=== PATIENT | female | born 1935 | race Caucasian/White ===

== ENCOUNTER 2022-02-23 09:40 | Emergency (ER) | payer MEDICARE, BC, SELFPAY ==
[2022-02-23 10:14] VITALS: BP 144/88; PULSE 87; RESP 16; TEMP 37; O2SAT 99; BMI 25.8
--- NOTE | 2022-02-23 10:41 | CRLHL7_ITS ---
For Patients: As a result of the Century Cures Act, medical imaging exams and procedure reports are released immediately into your electronic medical record. You may view this report before your referring provider. If you have questions, please contact your health care provider. INDICATION: Trauma. On Eliquis COMPARISON: July 07, 2018 TECHNIQUE: CT examination of the head was performed as axial sections without intravenous contrast. Images were obtained from the vertex of the skull through the skull base. Please note that all CT scans at this facility use dose modulation, iterative reconstruction, and/or weight-based dosing when appropriate to reduce radiation dose to as low as reasonably achievable. FINDINGS: The brain shows no sign of mass lesion, mass effect, hemorrhage, or edema. There are involutional changes. There is mild cortical atrophy and there is mild white matter disease. There is no hydrocephalus. The visualized portions of the orbits are normal in appearance. The osseous structures are normal in appearance with no sign of abnormality in the skull base or calvarium. IMPRESSION: Age-appropriate involutional changes. No acute intracranial posttraumatic findings. Please note that all CT scans at this facility use dose modulation, iterative reconstruction, and/or weight-based dosing when appropriate to reduce radiation dose to as low as reasonably achievable. Dictated by Fabian Diana MD @ 02/23/2022 12:09:28 PM (Electronically Signed)
--- NOTE | 2022-02-23 10:41 | CRLHL7_ITS ---
For Patients: As a result of the Cures Act, medical imaging exams and procedure reports are released immediately into your electronic medical record. You may view this report before your referring provider. If you have questions, please contact your health care provider. INDICATION: Fall, right-sided rib pain. TECHNIQUE: Chest and ribs, 3 views. COMPARISON: None. FINDINGS: Lungs: Clear lungs. No consolidation. Pleura: No pleural effusion or pneumothorax. Heart and Mediastinum: The cardiomediastinal silhouette is normal. The vessels are unremarkable. Bones: Unremarkable. No displaced rib fractures. IMPRESSION: No acute cardiopulmonary disease. Dictated by Junaid Corona MD @ 02/23/2022 12:18:48 PM (Electronically Signed)
--- NOTE | 2022-02-23 12:50 | ED_ITS ---
HPI - Head Injury General Date Seen: 02/23/22 Chief complaint: Head Injury/Pain Stated complaint: Fell, hit back of head, twisted right shoulder Time Seen by Provider: 02/23/22 10:35 Source: patient Mode of arrival: ambulatory Limitations: no limitations History of Present Illness HPI Narrative: Patient is a very nice 86-year-old female who presents here ambulatory to the emergency room for evaluation of a head injury, she is on Eliquis, and stepped [place] a curb [place] and wiped out hitting of her septal region on her head, on the curb along with her right-sided chest and shoulder. No loss of consciousness, she reports no other injury, other than described above, there was no retrograde or antegrade amnesia, but she is concerned as she is on the Eliquis. MD Complaint: head injury Onset (ago): minute(s) Mechanism of Injury: fall Place: outdoors Loss of Consciousness: no Location of injury: occipital Severity: moderate Quality: aching Radiation: none Other Injuries: chest Context: other anticoagulant use Associated symptoms: denies other symptoms Related Data Home Medications Medication Instructions Recorded Confirmed apixaban 5 mg tablet (Eliquis) 5 mg PO BID 02/23/22 02/23/22 atorvastatin 40 mg tablet 40 mg PO DAILY 02/23/22 02/23/22 calcium carbonate 600 mg calcium 600 mg PO BID 02/23/22 02/23/22 (1,500 mg) tablet (Calcium) cholecalciferol (vitamin D3) 125 5,000 unit PO DAILY 02/23/22 02/23/22 mcg (5,000 unit) capsule hydrochlorothiazide 12.5 mg tablet 12.5 mg PO DAILY 02/23/22 02/23/22 metoprolol tartrate 50 mg tablet 50 mg PO DAILY 02/23/22 02/23/22 Allergies Allergy/AdvReac Type Severity Reaction Status Date / Time penicillin G Allergy Unknown Verified 02/23/22 10:22 Sulfa (Sulfonamide Allergy Unknown Verified 02/23/22 10:22 Antibiotics) Review of Systems Status of ROS: Reports: 10 or more systems reviewed and unremarkable except as noted in History and below PFSH PFSH Social History Smoking Status: Never smoker Do you use any of these nicotine containing products: None Second hand tobacco smoke exposure: No How often do you have a drink containing alcohol: monthly or less How often do you have six or more drinks on one occasion: Never AUDIT-C Alcohol total score: 1 Non-prescribed substance use: denies use service: No Exam Narrative: Exam Narrative: Patient is seen and assessed her vital signs are normal, pupils equal round reactive to light her TMs are normal, her neck is supple full range of motion with no tenderness palpation over C-spine, cranial nerves 3-12 are normal, she does have a bruise with a very small hematoma noted on her left side of her s eptal region. It is approximately 4 cm in circumference. Chest is clear no signs or spy johnathan distress, some very mild tenderness along the right side, but no bruising is noted., heart sounds are normal no clicks murmurs or gallops abdomen is soft, there is no tenderness palpation, no organomegaly, and no CVA tenderness. Const: Vital Signs, click to edit/add: Vital Signs - 24 hr 02/23/22 10:14 Temperature 98.6 F Pulse Rate [Pulse Oximeter] 87 Respiratory Rate 16 Blood Pressure [Ri t Upper Arm] 144/88 H Pulse Oximetry 99 Oxygen Delivery Me thod Room Air Course Vital Signs Vital signs: Initial Vital Signs Temperature 98.6 F 02/23/22 10:14 Temperature Source Temporal Artery Scan 02/23/22 10:14 Pulse Rate 87 02/23/22 10:14 Pulse Rhythm 02/23/22 10:14 Pulse Strength 3+ Normal 02/23/22 10:14 Respiratory Rate 16 02/23/22 10:14 Blood Pressure 144/88 H 02/23/22 10:14 Blood Pressure Mean 106 02/23/22 10:14 Blood Pressure Position Sitting 02/23/22 10:14 Pulse Oximetry 99 02/23/22 10:14 Oxygen Delivery Method 02/23/22 10:14 Vital Signs Temperature 98.6 F 02/23/22 10:14 Pulse Rate 87 02/23/22 10:14 Respiratory Rate 16 02/23/22 10:14 Blood Pressure 144/88 H 02/23/22 10:14 Pulse Oximetry 99 02/23/22 10:14 Oxygen Delivery Method 02/23/22 10:14 Temperature 98.6 F 02/23/22 10:14 Pulse Rate 87 02/23/22 10:14 Respiratory Rate 16 02/23/22 10:14 Blood Pressure 144/88 H 02/23/22 10:14 Pulse Oximetry 99 02/23/22 10:14 Oxygen Delivery Method 02/23/22 10:14 MDM - Head Injury MDM Narrative Medical decision making narrative: Life-threatening differential diagnosis is considered include: Subarachnoid hemorrhage, subdural hemorrhage, epidural hemorrhage. Other differential diagnosis considered include concussion, closed head injury, or neck fracture. Medical Records Attestation: I reviewed the patient's medical records. Lab Data Attestation: I reviewed the patient's lab results. Imaging Data CT scan - head: Attestation: I have reviewed the pertinent imaging results. My impression: CT scan of the head showed no acute findings. By my review Radiologist's impression: Read by Radiology in agreement no acute findings Discharge Plan Discharge Clinical Impression: Rib pain on right side, Closed head injury Patient Disposition: Home, Self-Care Condition: Stable Instructions: Chest Pain (ED), Head Injury (ED) Additional Instructions: Home rest Tylenol, I am so sorry fell, please try to be more careful in the future. Prescriptions: No Action atorvastatin 40 mg tablet 40 mg PO DAILY calcium carbonate [Calcium 600] 600 mg calcium (1,500 mg) tablet 600 mg PO BID Eliquis 5 mg tablet 5 mg PO BID metoprolol tartrate 50 mg tablet 50 mg PO DAILY cholecalciferol (vitamin D3) 125 mcg (5,000 unit) capsule 5,000 unit PO DAILY hydrochlorothiazide 12.5 mg tablet 12.5 mg PO DAILY Follow Up/Referrals: Karson Avitia MD [Primary Care Provider] - Stand Alone Forms: [employer] Info Instructions
== END 2022-02-23 12:38 | disposition home or self-care (01) ==
PROVIDERS: Emergency Provider Family Medicine; PCP Family Medicine
DX: S09.90XA Unspecified injury of head, initial encounter (principal); W10.1XXA Fall (on)(from) sidewalk curb, initial encounter; Y92.414 Local residential or business street as the place of occurrence of the external cause; Y99.9 Unspecified external cause status; R07.81 Pleurodynia; Z79.01 Long term (current) use of anticoagulants
CPT/HCPCS: 70450; 71101; 99283; 99284

== ENCOUNTER 2023-02-24 18:36 | Emergency (ER) | payer MEDICARE, BC, SELFPAY ==
[2023-02-24 18:48] VITALS: BP 179/69; PULSE 86; RESP 16; TEMP 36.2; O2SAT 99; BMI 27.5
--- NOTE | 2023-02-24 18:49 | ED_ITS ---
HPI - Head Injury General Time Seen by Provider: 18:49 Date Seen: 02/24/23 Chief complaint: Head Injury/Pain Stated complaint: Fell, hit head, on thinners Time Seen by Provider: 02/24/23 18:48 Source: patient and RN notes reviewed Mode of arrival: ambulatory Limitations: no limitations History of Present Illness HPI Narrative: Antoinette is a very pleasant 87-year-old female currently on Eliquis who comes to the emergency room for evaluation of a fall. Patient was at a local movie theater with family members and when she walked out she fell on the curb falling backwards striking her head. She also thinks that she must have fallen on her buttocks as she has some soreness in her low back. She did not lose consciousness nor has she had any nausea or vomiting. She denies any visual changes or chest pain. He had no prodromal symptoms prior to the fall. At this time she has not taken any medication for discomfort. She states that she came in because she was told because she is on a blood thinner that she would need further evaluation after a fall. Related Data Home Medications Medication Instructions Recorded Confirmed apixaban 5 mg tablet (Eliquis) 5 mg PO BID 02/23/22 02/23/22 atorvastatin 40 mg tablet 40 mg PO DAILY 02/23/22 02/23/22 calcium carbonate 600 mg calcium 600 mg PO BID 02/23/22 02/23/22 (1,500 mg) tablet (Calcium) cholecalciferol (vitamin D3) 125 5,000 unit PO DAILY 02/23/22 02/23/22 mcg (5,000 unit) capsule hydrochlorothiazide 12.5 mg tablet 12.5 mg PO DAILY 02/23/22 02/23/22 metoprolol tartrate 50 mg tablet 50 mg PO DAILY 02/23/22 02/23/22 Allergies Allergy/AdvReac Type Severity Reaction Status Date / Time penicillin G Allergy Unknown Verified 02/24/23 18:51 Sulfa (Sulfonamide Allergy Unknown Verified 02/24/23 18:51 Antibiotics) Review of Systems 2 Status of ROS: Reports: 6 or more systems reviewed and unremarkable except as noted in History and below Const: Denies: fever or chills Eyes: Denies: change in vision or blurry vision ENMT: Denies: neck pain or throat swelling Cardio: Denies: chest pain or shortness of breath with exertion Resp: Denies: shortness of breath GI: Denies: abdominal pain, nausea or vomiting Musculo: Reports: back pain (Low back discomfort on the right); Denies: neck pain or extremity swelling Neuro: Denies: headache or numbness in extremities Sonido/Lymph: Reports: other (Left elbow abrasion); Denies: easy bruising Allergy/Immuno: Denies: throat swelling PFSH [facility] Social History Smoking Status: Never smoker Do you use any of these nicotine containing products: None Second hand tobacco smoke exposure: No How often do you have a drink containing alcohol: monthly or less How often do you have six or more drinks on one occasion: Never AUDIT-C Alcohol total score: 1 Non-prescribed substance use: denies use service: No Exam Narrative: Exam Narrative: Patient is alert and oriented. Very well-spoken pleasant woman in no acute distress. Pupils are equal round and reactive. Patient has a silver dollar size sized area of edema on the left a septal and parietal area of the scalp. Skin is intact. Range of motion of neck is full and there is no cervical midline tenderness Heart with in a irregular rhythm and normal rate. Lungs are clear in all lung santos. Palpation down the lumbar and thoracic spine without pain. Mild tenderness noted over the right upper buttock. Ambulating without difficulty. She does have superficial abrasion over the left olecranon. Flexion extension is intact. There is no radial head tenderness with palpation. Const: Vital Signs, click to edit/add: Vital Signs - 24 hr 02/24/23 18:48 02/24/23 21:08 02/24/23 21:14 Temperature 97.1 F L 98.2 F 98.2 F Pulse Rate [Right Pulse Oximeter] 86 79 79 Respiratory Rate 16 16 16 Blood Pressure [Ri ght Upper Arm] 179/69 H 148/74 H 148/74 H Pulse Oximetry 99 99 Oxygen Delivery Me thod Room Air Room Air Documenting provider has reviewed patient's vital signs: yes Course Course ED Course: Given patient's age and use of blood thinners would recommend head CT to rule out any intracranial bleed. Cervical spine is without tenderness and range of motion is full and thus I do not think we need to add cervical spine imaging. Other injuries on a buttock and her left arm do not appear to compromise range of motion and appeared to be mild and therefore will not pursue imaging at this time. Patient does not describe any prodromal symptoms and thus will not pursue blood work. Vital Signs Vital signs: Initial Vital Signs Temperature 97.1 F L 02/24/23 18:48 Temperature Source Temporal Artery Scan 02/24/23 18:48 Pulse Rate 86 02/24/23 18:48 Pulse Rhythm Regular 02/24/23 18:48 Pulse Strength 3+ Normal 02/24/23 18:48 Respiratory Rate 16 02/24/23 18:48 Blood Pressure 179/69 H 02/24/23 18:48 Blood Pressure Mean 105 02/24/23 18:48 Blood Pressure Position Supine 02/24/23 18:48 Pulse Oximetry 99 02/24/23 18:48 Oxygen Delivery Method Room Air 02/24/23 18:48 Vital Signs Temperature 97.1 F L 02/24/23 18:48 Pulse Rate 86 02/24/23 18:48 Respiratory Rate 16 02/24/23 18:48 Blood Pressure 179/69 H 02/24/23 18:48 Pulse Oximetry 99 02/24/23 18:48 Oxygen Delivery Method Room Air 02/24/23 18:48 Temperature 98.2 F 02/24/23 21:14 Pulse Rate 79 02/24/23 21:14 Respiratory Rate 16 02/24/23 21:14 Blood Pressure 148/74 H 02/24/23 21:14 Pulse Oximetry 99 02/24/23 21:08 Oxygen Delivery Method Room Air 02/24/23 21:08 MDM - Head Injury MDM Narrative Medical decision making narrative: 1. Closed head injury-given patient's use of Eliquis along with her age we did obtain CT of the head which fortunately was negative for any evidence of fracture or intracranial bleed. At this time patient will be discharged home. She is instructed to return for vomiting, headache, visual changes, change in personality and as needed. 2. Soft tissue injury-of the low back and of the left elbow. No x-rays were deemed necessary in these particular areas. Seek medical attention for any ongoing problems. 3. Disposition-home at this time. Return as needed. Medical Records Attestation: I reviewed the patient's medical records. Imaging Data CT scan - head: Attestation: I have reviewed the pertinent imaging results. My impression: I do not note any acute skull fractures or intracranial bleeding. Radiologist's impression: No loss of cruz-white differentiation suggestive of recent territorial infarct. Small focus of encephalomalacia involving the right precentral gyrus. Mild patchy periventricular hypoattenuation, nonspecific but suggestive of chronic microvascular ischemic changes. No intracranial hemorrhage, abnormal extra-axial fluid collection or midline shift. The ventricles and cerebral sulci are normal in caliber. The basal cisterns are patent. The visualized paranasal sinuses and mastoid air cells are clear. Status post bilateral lens removal. The visualized orbits and calvarium are unremarkable. 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 The cerebellar tonsils are in normal position. IMPRESSION: No intracranial hemorrhage or midline shift. No acute skull fractures. Discharge Plan Discharge Clinical Impression: Closed head injury Qualifiers: Encounter type: initial encounter Qualified Code(s): S09.90XA - Unspecified injury of head, initial encounter Soft tissue injury of back Qualifiers: Encounter type: initial encounter Qualified Code(s): S39.92XA - Unspecified injury of lower back, initial encounter Patient Disposition: Home, Self-Care Condition: Unchanged Additional Instructions: Fortunately, CT does not show any evidence of bleeding. Please seek medical attention or return for symptoms including vomiting, severe headache, visual changes, problems with balance and as needed. Tylenol may be used as needed. Prescriptions: No Action atorvastatin 40 mg tablet 40 mg PO DAILY calcium carbonate [Calcium 600] 600 mg calcium (1,500 mg) tablet 600 mg PO BID Eliquis 5 mg tablet 5 mg PO BID metoprolol tartrate 50 mg tablet 50 mg PO DAILY cholecalciferol (vitamin D3) 125 mcg (5,000 unit) capsule 5,000 unit PO DAILY hydrochlorothiazide 12.5 mg tablet 12.5 mg PO DAILY Follow Up/Referrals: Karson Avitia MD [Primary Care Provider] - Stand Alone Forms: [email or web address] Info Instructions
--- NOTE | 2023-02-24 19:05 | CRLHL7_ITS ---
For Patients: As a result of the Century Cures Act, medical imaging exams and procedure reports are released immediately into your electronic medical record. You may view this report before your referring provider. If you have questions, please contact your health care provider. INDICATION: . TECHNIQUE: Multiplanar CT examination of the head was performed without the use of intravenous contrast. COMPARISON: None. FINDINGS: No loss of cruz-white differentiation suggestive of recent territorial infarct. Small focus of encephalomalacia involving the right precentral gyrus. Mild patchy periventricular hypoattenuation, nonspecific but suggestive of chronic microvascular ischemic changes. No intracranial hemorrhage, abnormal extra-axial fluid collection or midline shift. The ventricles and cerebral sulci are normal in caliber. The basal cisterns are patent. The visualized paranasal sinuses and mastoid air cells are clear. Status post bilateral lens removal. The visualized orbits and calvarium are unremarkable. 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 The cerebellar tonsils are in normal position. IMPRESSION: No intracranial hemorrhage or midline shift. No acute skull fractures. Please note that all CT scans at this facility use dose modulation, iterative reconstruction, and/or weight-based dosing when appropriate to reduce radiation dose to as low as reasonably achievable. Dictated by Fabian Johnston MD @ 02/24/2023 8:58:29 PM (Electronically Signed)
[2023-02-24 21:08] VITALS: BP 148/74; PULSE 79; RESP 16; TEMP 36.8; O2SAT 99
[2023-02-24 21:14] VITALS: BP 148/74; PULSE 79; RESP 16; TEMP 36.8
== END 2023-02-24 21:15 | disposition home or self-care (01) ==
PROVIDERS: Emergency Provider Family Medicine; PCP Family Medicine
DX: S09.90XA Unspecified injury of head, initial encounter (principal); S39.92XA Unspecified injury of lower back, initial encounter; W10.1XXA Fall (on)(from) sidewalk curb, initial encounter; Y92.26 Movie house or cinema as the place of occurrence of the external cause
CPT/HCPCS: 70450; 99284

== ENCOUNTER 2023-03-30 16:44 | Emergency (ER) | payer MEDICARE, BC, SELFPAY ==
[2023-03-30 17:00] VITALS: BP 137/78; PULSE 69; RESP 16; TEMP 36.6; O2SAT 98; BMI 27.5
--- NOTE | 2023-03-30 17:09 | CRLHL7_ITS ---
For Patients: As a result of the Century Cures Act, medical imaging exams and procedure reports are released immediately into your electronic medical record. You may view this report before your referring provider. If you have questions, please contact your health care provider. INDICATION: Trauma. TECHNIQUE: Head CT without contrast. COMPARISON: February 2023. FINDINGS: Periventricular areas of low attenuation, likely due to chronic small vessel ischemic changes. Generalized volume loss. Atherosclerosis. Right precentral gyrus area of encephalomalacia. Motion and beam hardening artifact predominantly at the level of skullbase degrades fine detail evaluation. No intracranial hemorrhage. No discrete mass or mass effect. There is no midline shift. The basilar cisterns are patent. No hydrocephalus. The lagos-white matter interface is otherwise preserved. No acute osseous abnormality. No extracalvarial soft tissue abnormality. The mastoid air cells are clear. The paranasal sinuses are well-aerated. The visualized portions of the orbits and globes are unremarkable. IMPRESSION: No acute intracranial process per unenhanced head CT given above constraints. Please note that all CT scans at this facility use dose modulation, iterative reconstruction, and/or weight-based dosing when appropriate to reduce radiation dose to as low as reasonably achievable. Dictated by Pete Buckley MD @ 03/30/2023 5:57:21 PM (Electronically Signed)
--- NOTE | 2023-03-30 17:11 | ED_ITS ---
HPI - Fall General Date Seen: 03/30/23 Chief Complaint: Fall/Minor Trauma Stated Complaint: Fell and hit head on grass, on blood thinners Time Seen by Provider: 03/30/23 16:46 Source: patient Mode of arrival: ambulatory Limitations: no limitations History of Present Illness HPI Narrative: Patient is a 7-year-old female presented emergency department after a fall. She states she is on Eliquis. She is here with a family friend. She has issues bending over to pick or dog feces when she stood for this of fallen forward was witnessed and back up quickly and fell backwards. States there was no lightheadedness or dizziness. States she hit the back her head on grass. He has been otherwise acting normally according to the family friend. Patient denies chest pain, shortness of breath, lightheadedness, dizziness, fevers, chills, weakness, numbness, vision changes. Denies any neck pain. No other concerns at this time. States she only came in because she is on a blood thinner. Related Data Home Medications Medication Instructions Recorded Confirmed apixaban 5 mg tablet (Eliquis) 5 mg PO BID 02/23/22 02/23/22 atorvastatin 40 mg tablet 40 mg PO DAILY 02/23/22 02/23/22 calcium carbonate 600 mg calcium 600 mg PO BID 02/23/22 02/23/22 (1,500 mg) tablet (Calcium) cholecalciferol (vitamin D3) 125 5,000 unit PO DAILY 02/23/22 02/23/22 mcg (5,000 unit) capsule hydrochlorothiazide 12.5 mg tablet 12.5 mg PO DAILY 02/23/22 02/23/22 metoprolol tartrate 50 mg tablet 50 mg PO DAILY 02/23/22 02/23/22 Allergies Allergy/AdvReac Type Severity Reaction Status Date / Time penicillin G Allergy Unknown Verified 02/24/23 18:51 Sulfa (Sulfonamide Allergy Unknown Verified 02/24/23 18:51 Antibiotics) Review of Systems Status of ROS: Reports: 10 or more systems reviewed and unremarkable except as noted in History and below [facility] Social History Smoking Status: Never smoker Do you use any of these nicotine containing products: None Second hand tobacco smoke exposure: No How often do you have a drink containing alcohol: monthly or less How often do you have six or more drinks on one occasion: Never AUDIT-C Alcohol total score: 1 Non-prescribed substance use: denies use service: No Exam Narrative: Exam Narrative: Const: Well-nourished, Well-developed, in no distress Eyes: PERRL, no conjunctival injection, and symmetrical lids HENT: Atraumatic external nose and ears. Moist mucous membranes. Atraumatic normocephalic Neck: Symmetric, trachea midline, No thyromegaly. CVS: RRR, No murmurs or gallops. Peripheral pulses 2+ and equal in all extremities RESP: Unlabored respiratory effort. Clear to auscultation bilaterally. GI: Nontender/Nondistended, No rebound or guarding. MSK:Extremities w/o deformity, Normal Active ROM Skin: Warm, Dry. No rashes or lesions. Neuro: Normal Muscle tone, No focal neurological deficits. Psych: Awake, Alert, & Oriented x3. Appropriate mood and affect. Const: Vital Signs, click to edit/add: Vital Signs - 24 hr 03/30/23 17:00 Temperature 97.9 F Pulse Rate [Right Pulse Oximeter] 69 Respiratory Rate 16 Blood Pressure [Ri ght Upper Arm] 137/78 Pulse Oximetry 98 Oxygen Delivery Me thod Room Air Course Vital Signs Vital signs: Initial Vital Signs Temperature 97.9 F 03/30/23 17:00 Temperature Source Temporal Artery Scan 03/30/23 17:00 Pulse Rate 69 03/30/23 17:00 Respiratory Rate 16 03/30/23 17:00 Blood Pressure 137/78 03/30/23 17:00 Blood Pressure Mean 97 03/30/23 17:00 Blood Pressure Position Sitting 03/30/23 17:00 Pulse Oximetry 98 03/30/23 17:00 Oxygen Delivery Method Room Air 03/30/23 17:00 Vital Signs Temperature 97.9 F 03/30/23 17:00 Pulse Rate 69 03/30/23 17:00 Respiratory Rate 16 03/30/23 17:00 Blood Pressure 137/78 03/30/23 17:00 Pulse Oximetry 98 03/30/23 17:00 Oxygen Delivery Method Room Air 03/30/23 17:00 Temperature 97.9 F 03/30/23 17:00 Pulse Rate 69 03/30/23 17:00 Respiratory Rate 16 03/30/23 17:00 Blood Pressure 137/78 03/30/23 17:00 Pulse Oximetry 98 03/30/23 17:00 Oxygen Delivery Method Room Air 03/30/23 17:00 MDM - Fall MDM Narrative Medical decision making narrative: Patient is an 87-year-old female presenting emergency department after a fall. She is on blood thinners. Shows no lightheadedness dizziness associated with the fall. She does was all due to her losing her balance. She says she has weak legs at baseline. She is otherwise acting normally. No other concerns at this time. She does not have any neck pain under not believe imaging of the cervical spine is necessary at this time. I ordered CT scan of the head to look for any intracranial bleeding. Returned showing no concerning abnormalities. She continues to be asymptomatic be discharged home. She has agreed with this plan. Imaging Data CT scan - head: Radiologist's impression: INDICATION: Trauma. TECHNIQUE: Head CT without contrast. COMPARISON: February 2023. FINDINGS: Periventricular areas of low attenuation, likely due to chronic small vessel ischemic changes. Generalized volume loss. Atherosclerosis. Right precentral gyrus area of encephalomalacia. Motion and beam hardening artifact predominantly at the level of skullbase degrades fine detail evaluation. No intracranial hemorrhage. No discrete mass or mass effect. There is no midline shift. The basilar cisterns are patent. No hydrocephalus. The [place]-white matter interface is otherwise preserved. No acute osseous abnormality. No extracalvarial soft tissue abnormality. The mastoid air cells are clear. The paranasal sinuses are well-aerated. The visualized portions of the orbits and globes are unremarkable. IMPRESSION: No acute intracranial process per unenhanced head CT given above constraints. Please note that all CT scans at this facility use dose modulation, iterative reconstruction, and/or weight-based dosing when appropriate to reduce radiation dose to as low as reasonably achievable. Dictated by Pete Buckley MD @ 03/30/2023 5:57:21 PM Discharge Plan Discharge Clinical Impression: Closed head injury Qualifiers: Encounter type: initial encounter Qualified Code(s): S09.90XA - Unspecified injury of head, initial encounter Patient Disposition: Home, Self-Care Condition: Stable Instructions: Head Injury (DC) Additional Instructions: There is no signs of bleeding on head CT. Return for any new or worsening symptoms Prescriptions: No Action atorvastatin 40 mg tablet 40 mg PO DAILY calcium carbonate [Calcium 600] 600 mg calcium (1,500 mg) tablet 600 mg PO BID Eliquis 5 mg tablet 5 mg PO BID metoprolol tartrate 50 mg tablet 50 mg PO DAILY cholecalciferol (vitamin D3) 125 mcg (5,000 unit) capsule 5,000 unit PO DAILY hydrochlorothiazide 12.5 mg tablet 12.5 mg PO DAILY Follow Up/Referrals: Karson Avitia MD [Primary Care Provider] - Stand Alone Forms: [facility] Info Instructions
== END 2023-03-30 18:09 | disposition home or self-care (01) ==
PROVIDERS: Emergency Provider Student in an Organized Health Care Education/Training Program; PCP Family Medicine
DX: S09.90XA Unspecified injury of head, initial encounter (principal); W18.30XA Fall on same level, unspecified, initial encounter
CPT/HCPCS: 70450; 99283; 99284

== ENCOUNTER 2024-03-02 12:18 | Emergency (ER) | payer MEDICARE, BC, SELFPAY ==
[2024-03-02 12:45] VITALS: BP 145/74; PULSE 70; RESP 16; TEMP 36.8; O2SAT 98; BMI 23.2
--- NOTE | 2024-03-02 13:04 | CRLHL7_ITS ---
For Patients: As a result of the Century Cures Act, medical imaging exams and procedure reports are released immediately into your electronic medical record. You may view this report before your referring provider. If you have questions, please contact your health care provider. Indication: Fall, hit head Technique: Volumetric multidetector CT images of the head were obtained without the administration of low osmolar intravenous contrast. Comparison: CT head March 30, 2023 Findings: There is no intra-axial or extra-axial fluid collection. There is no mass effect or midline shift. There is age-related cortical atrophy with mild sulcal widening and ex vacuo dilatation of the lateral ventricles. Stable encephalomalacia of the mesial right frontal vertex. Otherwise, stable moderate chronic small-vessel disease changes within the subcortical and periventricular white matter. The orbits and their contents are grossly within normal limits. There is minimal superficial soft tissue prominence of the left temporal scalp. The underlying bony calvarium is grossly intact. There is minimal chronic mucosal thickening within the paranasal sinuses. The mastoid air cells are well aerated. Impression: Stable age-related and remote ischemic changes of the brain without acute intracranial abnormality. Small left temporal scalp hematoma. Please note that all CT scans at this facility use dose modulation, iterative reconstruction, and/or weight-based dosing when appropriate to reduce radiation dose to as low as reasonably achievable. Dictated by Crow Joyce MD @ 03/02/2024 1:40:37 PM (Electronically Signed)
--- NOTE | 2024-03-02 13:36 | ED_ITS ---
HPI - General Adult General Chief complaint: Fall/Minor Trauma Stated complaint: Fall at home bumped head Time Seen by Provider: 03/02/24 13:02 Source: patient Mode of arrival: ambulatory Limitations: no limitations History of Present Illness HPI narrative: 88-year-old female presenting today after a fall. Patient states that her right knee buckled when she was walking in her house and she fell on her buttocks, on the way down she hit the left side of her head on the door frame. Patient denies headache, confusion, blurry vision or changes in her hearing. She denies any neurologic deficits. She does state that the area where she hit is tender. Patient is anticoagulated. Related Data Home Medications ?Medication ?Instructions ?Recorded ?Confirmed apixaban 5 mg tablet (Eliquis) 5 mg PO BID 02/23/22 01/23/24 atorvastatin 40 mg tablet 40 mg PO DAILY 02/23/22 01/23/24 calcium carbonate (Calcium 600) 600 mg PO BID 02/23/22 01/23/24 cholecalciferol (vitamin D3) 125 5,000 unit PO DAILY 02/23/22 01/23/24 mcg (5,000 unit) capsule hydrochlorothiazide 12.5 mg tablet 12.5 mg PO DAILY 02/23/22 01/23/24 metoprolol tartrate 50 mg tablet 50 mg PO DAILY 02/23/22 01/23/24 Previous Rx's ?Medication ?Instructions ?Recorded cetirizine 10 mg tablet 10 mg PO QDAY #30 tabs 01/19/24 fluticasone propionate 50 1 spray intranasal QDAY #16 grams 01/19/24 mcg/actuation nasal spray,suspension guaifenesin 600 mg tablet, 600 - 1,200 mg (1 - 2 x 600 mg) PO 01/19/24 extended release 12 hr BID #30 tabs Allergies Allergy/AdvReac Type Severity Reaction Status Date / Time penicillin G Allergy Unknown Verified 01/23/24 10:52 Sulfa (Sulfonamide Allergy Unknown Verified 01/23/24 10:52 Antibiotics) Review of Systems Status of ROS: Reports: 10 or more systems reviewed and unremarkable except as noted in History and below PFSH PFSH Social History Smoking Status: Never smoker Do you use any of these nicotine containing products: None Second hand tobacco smoke exposure: No How often do you have a drink containing alcohol: monthly or less How often do you have six or more drinks on one occasion: Never AUDIT-C Alcohol total score: 1 Non-prescribed substance use: denies use service: No Exam Narrative: Exam Narrative: Well-nourished well-developed patient in no acute distress. Alert and oriented x3. Answers questions appropriately. Mood and affect are appropriate. Thoughts are goal oriented and rational. No tangential or magical thinking noted. Patient speaks in full sentences without needing to catch their breath. GCS is 15. Patient is speaking and breathing without difficulty. There is no obvious significant bleeding noted. Patient is sitting on the side of the bed comfortably. HEENT: Normocephalic. Pupils are equally round reactive to light. Extraocular muscles are intact. Conjunctivae are moist without any icterus noted. Moist mucous membranes. Posterior pharynx is normal. No trauma noted to the inside of the mouth. Neck is soft . Patient has a small hematoma over the left religion. Cardiovascular: Heart is regular rate and rhythm S1 and S2 are present without any murmurs. Lungs: Clear to auscultation bilaterally no wheezes rhonchi or rales are appreciated. Patient takes deep breaths without any discomfort. Patient has no tenderness to palpation of the anterior, lateral posterior chest wall. Abdomen: Soft and nontender nondistended with normal bowel sounds. Extremities: Bilateral lower extremities are without edema. Skin: Well perfused. Back: Normal appearance. Patient has no tenderness to palpation at the cervical, thoracic or lumbar spine. Patient has full range of motion at the neck with flexion, extension, side way bending and rotation without pain. Const: Vital Signs, click to edit/add: Vital Signs - 24 hr 03/02/24 12:45 Temperature 98.3 F Pulse Rate [Pulse Oximeter] 70 Respiratory Rate 16 Blood Pressure [Ri ght Upper Arm] 145/74 H Pulse Oximetry 98 Oxygen Delivery Me thod Room Air Course Course ED Course: CT scan of her head was done, unremarkable. Given that she was having no other symptoms no further imaging was done. Vital Signs Vital signs: Initial Vital Signs Temperature 98.3 F 03/02/24 12:45 Temperature Source Temporal Artery Scan 03/02/24 12:45 Pulse Rate 70 03/02/24 12:45 Respiratory Rate 16 03/02/24 12:45 Blood Pressure 145/74 H 03/02/24 12:45 Blood Pressure Mean 97 03/02/24 12:45 Pulse Oximetry 98 03/02/24 12:45 Oxygen Delivery Method Room Air 03/02/24 12:45 Vital Signs Temperature 98.3 F 03/02/24 12:45 Pulse Rate 70 03/02/24 12:45 Respiratory Rate 16 03/02/24 12:45 Blood Pressure 145/74 H 03/02/24 12:45 Pulse Oximetry 98 03/02/24 12:45 Oxygen Delivery Method Room Air 03/02/24 12:45 Temperature 98.3 F 03/02/24 12:45 Pulse Rate 70 03/02/24 12:45 Respiratory Rate 16 03/02/24 12:45 Blood Pressure 145/74 H 03/02/24 12:45 Pulse Oximetry 98 03/02/24 12:45 Oxygen Delivery Method Room Air 03/02/24 12:45 Medical Decision Making MDM Narrative Medical decision making narrative: 88-year-old female status post fall with a closed head injury. We discussed symptomatic treatment and reasons for follow-up. Imaging Data CT scan - head: Attestation: I have reviewed the pertinent imaging results. Radiologist's impression: Volumetric multidetector CT images of the head were obtained without the administration of low osmolar intravenous contrast. Comparison: CT head March 30, 2023 Findings: There is no intra-axial or extra-axial fluid collection. There is no mass effect or midline shift. There is age-related cortical atrophy with mild sulcal widening and ex vacuo dilatation of the lateral ventricles. Stable encephalomalacia of the mesial right frontal vertex. Otherwise, stable moderate chronic small-vessel disease changes within the subcortical and periventricular white matter. The orbits and their contents are grossly within normal limits. There is minimal superficial soft tissue prominence of the left temporal scalp. The underlying bony calvarium is grossly intact. There is minimal chronic mucosal thickening within the paranasal sinuses. The mastoid air cells are well aerated. Impression: Stable age-related and remote ischemic changes of the brain without acute intracranial abnormality. Small left temporal scalp hematoma. Discharge Plan Discharge Clinical Impression: Closed head injury, Fall Patient Disposition: Home, Self-Care Condition: Stable Additional Instructions: Your CT scan was normal today. Continue your therapy as you are doing. Return to the emergency department if you start vomiting, become confused or develop any neurologic deficits. Prescriptions: No Action guaifenesin 600 mg tablet extended release 12hr 600 - 1,200 mg PO BID Qty: 30 0RF cetirizine 10 mg tablet 10 mg PO QDAY Qty: 30 0RF fluticasone propionate 50 mcg/actuation spray,suspension 1 spray intranasal QDAY Qty: 16 0RF Rx Instructions: administer into each nostril atorvastatin 40 mg tablet 40 mg PO DAILY calcium carbonate [Calcium 600] 600 mg calcium (1,500 mg) tablet 600 mg PO BID Eliquis 5 mg tablet 5 mg PO BID metoprolol tartrate 50 mg tablet 50 mg PO DAILY cholecalciferol (vitamin D3) 125 mcg (5,000 unit) capsule 5,000 unit PO DAILY hydrochlorothiazide 12.5 mg tablet 12.5 mg PO DAILY Follow Up/Referrals: Karson Avitia MD [Primary Care Provider] - Stand Alone Forms: [facility] Info Instructions
== END 2024-03-02 13:55 | disposition home or self-care (01) ==
PROVIDERS: Emergency Provider Family Medicine; PCP Family Medicine
DX: S09.90XA Unspecified injury of head, initial encounter (principal); W01.198A Fall on same level from slipping, tripping and stumbling with subsequent striking against other object, initial encounter
CPT/HCPCS: 70450; 99284

== ENCOUNTER 2024-03-24 16:30 | Observation (INO) | payer MEDICARE, BC, SELFPAY ==
[2024-03-24] VITALS (10 sets, daily range): BP systolic 122–151; BP diastolic 51–82; PULSE 63–82; RESP 16–20; TEMP 36.7–37; O2SAT 95–100; BMI 23.0; BMI 22.7
--- NOTE | 2024-03-24 16:47 | ED_ITS ---
HPI - General Adult General Chief complaint: Neuro Symptoms/Altered Deficit Stated complaint: stroke Time Seen by Provider: 03/24/24 16:42 History of Present Illness HPI narrative: Patient is a 88-year-old woman who developed a strange sensation in the left biceps region while resting at home today. She states that she feels a tightness as if she has a pulled muscle. She is concerned she may be having a stroke but has no other neurologic symptoms. She is able to drive herself here. She has no chest pain no shortness a breath orthopnea no PND no weakness no difficulty with speech. No difficulty with vision no headache. Symptoms seem to worsen when she bends or arm but she has no bruising or ecchymoses noted. Symptoms are persisting but potentially getting better. Related Data Home Medications ?Medication ?Instructions ?Recorded ?Confirmed apixaban 5 mg tablet (Eliquis) 5 mg PO BID 02/23/22 03/24/24 atorvastatin 40 mg tablet 40 mg PO DAILY 02/23/22 03/24/24 calcium carbonate (Calcium 600) 600 mg PO BID 02/23/22 03/24/24 cholecalciferol (vitamin D3) 125 5,000 unit PO DAILY 02/23/22 03/24/24 mcg (5,000 unit) capsule hydrochlorothiazide 12.5 mg tablet 12.5 mg PO DAILY 02/23/22 03/24/24 metoprolol tartrate 50 mg tablet 50 mg PO DAILY 02/23/22 03/24/24 albuterol sulfate 90 mcg/actuation 2 puff inhalation Q4H PRN wheezing 03/24/24 03/24/24 aerosol inhaler Previous Rx's ?Medication ?Instructions ?Recorded cetirizine 10 mg tablet 10 mg PO QDAY #30 tabs 01/19/24 Allergies Allergy/AdvReac Type Severity Reaction Status Date / Time penicillin G Allergy Unknown Verified 03/24/24 17:58 Sulfa (Sulfonamide Allergy Unknown Verified 03/24/24 17:58 Antibiotics) Review of Systems Status of ROS: Reports: 10 or more systems reviewed and unremarkable except as noted in History and below [facility] Social History Smoking Status: Never smoker Do you use any of these nicotine containing products: None Second hand tobacco smoke exposure: No How often do you have a drink containing alcohol: monthly or less How often do you have six or more drinks on one occasion: Never AUDIT-C Alcohol total score: 1 Non-prescribed substance use: denies use service: No Exam Narrative: Exam Narrative: EXAM GENERAL: Patient appears comfortable and well. EYES: No scleral icterus. ENT: Tympanic membranes and oropharynx normal. THYROID: no thyroid nodules or thyromegaly. LYMPH: No supraclavicular or cervical lymphadenopathy. SKIN: Visible skin seen during exam normal or with benign process only. EXT: No dependent lower extremity pedal edema. HEART: Regular rate and rhythm with no murmurs, rubs, or gallops. LUNGS: Clear to auscultation bilaterally with no crackles or wheezes. ABD: Soft, non tender, non distended. PSYCH: Good eye contact, speech is not pressured. Patient oriented x3. No evidence of pronator drift. She has 5/5 strength in both extremities. Reflexes are intact. Muscle strength is intact as is sensation. Const: Vital Signs, click to edit/add: Vital Signs - 24 hr 03/24/24 16:34 03/24/24 17:40 03/24/24 17:59 Temperature 98.3 F Pulse Rate 82 Pulse Rate [Pulse Oximeter] 74 Respiratory Rate 16 20 Blood Pressure 141/66 H Blood Pressure [Ri ght Upper Arm] 151/76 H Pulse Oximetry 97 95 96 Oxygen Delivery Me thod Room Air 03/24/24 18:30 Temperature Pulse Rate Pulse Rate [Pulse Oximeter] 71 Respiratory Rate 20 Blood Pressure Blood Pressure [Ri ght Upper Arm] 145/63 H Pulse Oximetry 100 Oxygen Delivery Me thod Room Air Course Course ED Course: This point I find no neurological symptoms. I do not believe head CT is indicated. I did order EKG troponin CBC basic metabolic panel and will plan to reassess. Reevaluation(s) Reevaluation #1: Initial NIH stroke score was 0. There was some concern now the patient is unable to write her name with her left hand. At this point we will call a stroke code and proceed with emergent evaluation. Vital Signs Vital signs: Initial Vital Signs Temperature 98.3 F 03/24/24 16:34 Temperature Source Oral 03/24/24 16:34 Pulse Rate 74 03/24/24 16:34 Respiratory Rate 16 03/24/24 16:34 Blood Pressure 151/76 H 03/24/24 16:34 Blood Pressure Mean 101 03/24/24 16:34 Blood Pressure Position Sitting 03/24/24 16:34 Pulse Oximetry 97 03/24/24 16:34 Oxygen Delivery Method Room Air 03/24/24 16:34 Vital Signs Temperature 98.3 F 03/24/24 16:34 Pulse Rate 74 03/24/24 16:34 Respiratory Rate 16 03/24/24 16:34 Blood Pressure 151/76 H 03/24/24 16:34 Pulse Oximetry 97 03/24/24 16:34 Oxygen Delivery Method Room Air 03/24/24 16:34 Temperature 98.3 F 03/24/24 16:34 Pulse Rate 71 03/24/24 18:30 Respiratory Rate 20 03/24/24 18:30 Blood Pressure 145/63 H 03/24/24 18:30 Pulse Oximetry 100 03/24/24 18:30 Oxygen Delivery Method Room Air 03/24/24 18:30 Medical Decision Making MDM Narrative Medical decision making narrative: Patient is a 88-year-old woman who comes in today with feeling of disconnect with her left arm. Which came in she had a NIH score of 0. Family was very concerned and asked I talked to Neurology which I did and I did recommend CT CTA both of which are normal. Patient has a sinus rhythm. Patient is anticoagulated as she potentially had some paroxysmal atrial fib in the past which may have contributed to stroke-like symptoms. At this point workup is largely unremarkable and her NIH remains at 0. Neurology recommends admission for MRI which we have arranged. Lab Data Labs: Lab Results 03/24/24 Range/Units 17:02 WBC 6.89 (4.50-11.00) K/uL RBC 3.63 L (4.00-5.20) m/uL Hgb 11.0 L (12.0-16.0) gm/dL Hct 33.9 (33.0-51.0) % MCV 93 (80-100) fL MCH 30 (26-34) pg MCHC 32 (32-36) gm/dL RDW Coeff of Barb 13.8 (11.5-15.5) % Plt Count 245 (140-440) K/uL Neut % (Auto) 46.8 (42.0-72.0) % Lymph % (Auto) 38.5 (20-44) % [place] % (Auto) 10.9 (0.0-11.0) % Eos % (Auto) 3.0 (0.0-7.0) % Baso % (Auto) 0.4 (0.0-3.0) % Neut # (Auto) 3.22 (1.7-7.0) K/uL Lymph # (Auto) 2.65 (0.90-2.90) K/uL [place] # (Auto) 0.80 (0.00-0.90) K/UL Eos # (Auto) 0.21 (0.00-0.50) K/uL Baso # (Auto) 0.03 (0.00-0.30) K/uL Abs Immat Gran (auto) 0.03 (0.00-0.30) K/uL Imm/Tot Granulo (auto) 0.4 % INR 1.29 H (0.91-1.10) APTT 30 (23-33) Seconds Sodium 137 (135-149) mmol/L Potassium 3.3 L (3.6-5.1) mmol/L Chloride 99 (96-114) mmol/L Carbon Dioxide 30 (20-32) mmol/L Anion Gap 8 (7-15) mEq/L BUN 21 (7-30) mg/dL Creatinine 0.8 (0.5-1.5) mg/dL Estimated Creat Clear 32.79 Estimated GFR 71 ml/min Glucose 104 (60-115) mg/dL Calcium 9.7 (8.4-10.6) mg/dL Troponin I < 0.01 L (0.01-0.04) ng/mL Discharge Plan Discharge Clinical Impression: Weakness Patient Disposition: Admitted As Observation Condition: Stable Activity Level: Other Discharge Diet: Other Prescriptions: No Action cetirizine 10 mg tablet 10 mg PO QDAY Qty: 30 0RF albuterol sulfate 90 mcg/actuation HFA aerosol inhaler 2 puff inhalation Q4H PRN (Reason: wheezing) atorvastatin 40 mg tablet 40 mg PO DAILY calcium carbonate [Calcium 600] 600 mg calcium (1,500 mg) tablet 600 mg PO BID Eliquis 5 mg tablet 5 mg PO BID metoprolol tartrate 50 mg tablet 50 mg PO DAILY cholecalciferol (vitamin D3) 125 mcg (5,000 unit) capsule 5,000 unit PO DAILY hydrochlorothiazide 12.5 mg tablet 12.5 mg PO DAILY Follow Up/Referrals: Karson Avitia MD [Primary Care Provider] -
[2024-03-24 17:07] LABS: Basophils Absolute Auto 0.03 K/uL (0.00-0.30); Basophils Percent Auto 0.4 % (0.0-3.0); Eosinophils Absolute Auto 0.21 K/uL (0.00-0.50); Hematocrit 33.9 % (33.0-51.0); Immature Granulocytes Abs Auto 0.03 K/uL (0.00-0.30); Immature Granulocytes Pct Auto 0.4 %; Lymphocytes Absolute Auto 2.65 K/uL (0.90-2.90); Lymphocytes Percent Auto 38.5 % (20-44); Mean Corpuscular HGB Conc 32 gm/dL (32-36); Mean Corpuscular Hemoglobin 30 pg (26-34); Mean Corpuscular Volume 93 fL (80-100); Monocytes Percent Auto 10.9 % (0.0-11.0); Neutrophils Absolute Auto 3.22 K/uL (1.7-7.0); Neutrophils Percent Auto 46.8 % (42.0-72.0); Platelet Count* 245 K/uL (140-440); RDW Coefficient of Variation % 13.8 % (11.5-15.5); Red Blood Count 3.63 m/uL (4.00-5.20); White Blood Count* 6.89 K/uL (4.50-11.00)
[2024-03-24 17:13] LABS: Slide Review Reflex No
[2024-03-24 17:21] LABS: Chloride* 99 mmol/L (96-114); Sodium* 137 mmol/L (135-149)
[2024-03-24 17:22] LABS: Potassium* 3.3 mmol/L (3.6-5.1)
[2024-03-24 17:24] LABS: Anion Gap 8 mEq/L (7-15); Carbon Dioxide* 30 mmol/L (20-32); Creatinine* 0.8 mg/dL (0.5-1.5); Est. Creatinine Clearance* 32.79; Estimated Glomerular Filt Rate 71 ml/min
[2024-03-24 17:25] LABS: Blood Urea Nitrogen* 21 mg/dL (7-30); Calcium* 9.7 mg/dL (8.4-10.6); Glucose* 104 mg/dL (60-115)
[2024-03-24 17:37] LABS: Troponin I* < 0.01 ng/mL (0.01-0.04)
--- NOTE | 2024-03-24 17:42 | CRLHL7_ITS ---
For Patients: As a result of the Century Cures Act, medical imaging exams and procedure reports are released immediately into your electronic medical record. You may view this report before your referring provider. If you have questions, please contact your health care provider. DATE: 03/24/2024 CLINICAL HISTORY: Patient with focal neurological deficits. TECHNIQUE: Standard helical CT image acquisition through the intracranial circulation following intravenous administration of contrast material with bolus tracking. 2D and 3D MIP images for post-processing were performed and interpreted on an independent workstation and 3D images were permanently archived. COMPARISON: CT same day. FINDINGS: There is no large vessel occlusion. 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 The right internal carotid artery is normal. The right middle cerebral artery and its branches are normal. The right anterior cerebral artery and its branches are normal. The left internal carotid artery is normal. The left middle cerebral artery and its branches are normal. The left anterior cerebral artery and its branches are normal. The right vertebral artery and PICA are normal. The left vertebral artery and PICA are normal. The vertebral arteries are codominant. The basilar artery is patent and appears normal. The right posterior cerebral artery is normal. The left posterior cerebral artery is normal. The visualized venous structures are patent. IMPRESSION: 1. No large vessel occlusion. 2. 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 Telehealth consultation with [facility]`s Neurointerventional team for enrollment in our long-term brain aneurysm surveillance program can by calling . Please note that all CT scans at this facility use dose modulation, iterative reconstruction, and/or weight-based dosing when appropriate to reduce radiation dose to as low as reasonably achievable. Dictated by Nicolas Bacon MD @ 03/24/2024 8:25:13 PM (Electronically Signed)
--- NOTE | 2024-03-24 17:42 | CRLHL7_ITS ---
For Patients: As a result of the Century Cures Act, medical imaging exams and procedure reports are released immediately into your electronic medical record. You may view this report before your referring provider. If you have questions, please contact your health care provider. DATE: 03/24/2024 CLINICAL HISTORY: Patient with focal neurological deficits. TECHNIQUE: Standard helical CT image acquisition of the neck up to the skull base after bolus intravenous contrast enhancement. 2D and 3D MIP images for post-processing were performed and interpreted on an independent workstation and 3D images were permanently archived. COMPARISON: CT same day. FINDINGS: The origins of the great vessels from the aortic arch are patent. The origin of the right vertebral artery is patent. The origin of the left vertebral artery is patent. The common carotid arteries are patent. There is a mild (<50%) stenosis at the origin of the right internal carotid artery by NASCET criteria, caused by non-calcified plaque with a <2mm residual lumen. There is no stenosis at the origin of the left internal carotid artery. The rest of the cervical segments of the internal carotid arteries are patent up to the skull base. The right vertebral artery is dominant. The cervical segments of the vertebral arteries are patent up to the skull base. The visualized lung apices demonstrate a calcified granuloma in the right middle lobe. The thyroid gland is unremarkable. The soft tissues of the neck are unremarkable. There are degenerative changes in the cervical spine. 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 Please note that all CT scans at this facility use dose modulation, iterative reconstruction, and/or weight-based dosing when appropriate to reduce radiation dose to as low as reasonably achievable. Dictated by Nicolas Bacon MD @ 03/24/2024 8:21:39 PM (Electronically Signed)
--- NOTE | 2024-03-24 17:42 | CRLHL7_ITS ---
For Patients: As a result of the Century Cures Act, medical imaging exams and procedure reports are released immediately into your electronic medical record. You may view this report before your referring provider. If you have questions, please contact your health care provider. INDICATION: Left-sided weakness TECHNIQUE: Noncontrast axial CT of the head. Coronal and sagittal reformats. Bone and soft tissue algorithms. COMPARISON: CT head 03/02/2024 FINDINGS: Stable small chronic cortical infarcts involving the right pre and postcentral gyri. Suspect chronic lacunar infarct at the left cerebellar hemisphere. No evidence for recent hemorrhage or infarct. No midline shift, hydrocephalus or herniation. Calcific intracranial atherosclerotic plaquing. Unremarkable midline structures. Intact calvarium. Clear paranasal sinuses and mastoid air cells. Bilateral lens implants. IMPRESSION: 1. No CT evidence of acute intracranial abnormality, or significant interval change relative to 03/02/2024. Please note that all CT scans at this facility use dose modulation, iterative reconstruction, and/or weight-based dosing when appropriate to reduce radiation dose to as low as reasonably achievable. Dictated by Shanna James MD @ 03/24/2024 6:22:22 PM (Electronically Signed)
[2024-03-24 18:05] LABS: Partial Thromboplastin Time* 30 Seconds (23-33)
[2024-03-24 18:08] LABS: INR 1.29 (0.91-1.10); Prothrombin Time 16.9 Seconds
[2024-03-24 19:27] LABS: Troponin I* < 0.01 ng/mL (0.01-0.04)
--- NOTE | 2024-03-24 20:48 | P.IMHP_ITS ---
Hospitalist- H&P: LAZARO History of Present Illness Date Seen: 03/24/24 Chief complaint: stroke Narrative: Antoinette Dumont is a 88 year old left-handed female with history of stroke admitted through the emergency department with onset of left arm altered sensation and function starting about 330 this afternoon. Patient reports she was in her usual state of good health until around 330 this afternoon when she reports her left arm felt numb/cold/wooden. She briefly felt that she was owen ving trouble speaking though that resolved relatively quickly. She did not feel weakness but she felt like her left hand was clumsy. She was unable to sign her signature with her left hand in the emergency department. She also briefly noted while she was in the emergency department that she had a little weakness on the left side of her mouth and that has resolved quickly. She did not have any new or changing visual symptoms. She did not have any left lower extremity symptoms. She had a previous stroke about 7 years ago. The primary symptoms of that were weakness in her left 4th and 5th fingers. At that time she had brain imaging that apparently showed multiple areas of previous ischemia. She has had no neurologic or stroke symptoms since that time until today. She does have a history of migraines. It has been years since she has had significant migraine headaches. When she would get migraines she would have a visual aura beforehand. She has not had that for some time either. In December of this year she developed a difficult and persistent cough. This lasted about a month and a half. She was seen by pulmonology. 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 She did not have a formal biopsy or diagnosis for that. Her respiratory symptoms, cough, have largely resolved. 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 Testing for other bacterial and fungal infections and tuberculosis were all apparently negative. Associated with this prolonged cough illness she did have significant weight loss. With her previous stroke she was evaluated for atrial fibrillation. She has extensive cardiac monitoring and evaluation which did not show evidence for atrial fibrillation but she was kept on apixaban because it was still clinically thought likely she has not had any problems with the apixaban other than easy bruising. She does have a history of a DVT about 20 years ago. She was briefly treated with warfarin at that time. As a part of her evaluation for her cough this summer she had a chest CT and CTA. The CTA did show diffuse nonobstructive coronary disease. Review of Systems Narrative: She reports no other concerns except as noted above. [facility] Medical History (Updated 03/24/24 @ 21:17 by Mani Garcia MD) Hypertension ?I10 - Essential (primary) hypertension (ICD-10) Obstructive sleep apnea ?G47.33 - Obstructive sleep apnea (adult) (pediatric) (ICD-10) Coronary artery disease ?I25.10 - Atherosclerotic heart disease of [place] coronary artery without angina pectoris (ICD-10) Mitral regurgitation ?I34.0 - Nonrheumatic mitral (valve) insufficiency (ICD-10) Breast cancer ?C50.919 - Malignant neoplasm of unspecified site of unspecified female breast (ICD-10) Bronchiectasis ?J47.9 - Bronchiectasis, uncomplicated (ICD-10) Chronic anticoagulation ?Z79.01 - retirement (current) use of anticoagulants (ICD-10) Hyperlipidemia ?E78.5 - Hyperlipidemia, unspecified (ICD-10) Surgical History (Updated 03/24/24 @ 21:09 by Mani Garcia MD) History of total abdominal hysterectomy and bilateral salpingo-oophorectomy ?Z90.710 - Acquired absence of both cervix and uterus (ICD-10) ?Z90.722 - Acquired absence of ovaries, bilateral (ICD-10) ?Z90.79 - Acquired absence of other genital organ(s) (ICD-10) History of cholecystectomy ?Z90.49 - Acquired absence of other specified parts of digestive tract (ICD- 10) History of bladder repair surgery ?Z98.890 - Other specified postprocedural states (ICD-10) History of appendectomy ?Z90.49 - Acquired absence of other specified parts of digestive tract (ICD- 10) H/O mastectomy ?Z90.10 - Acquired absence of unspecified breast and nipple (ICD-10) Family History (Updated 03/24/24 @ 21:10 by Mani Garcia MD) Mother Bright's disease Father Heart disease Social History (Updated 03/24/24 @ 21:11 by Mani Garcia MD) Narrative: She lives in [place]. She lives independently. She indicates that her 2 daughters, Sandie and Kendal and her son Sanjeev would be healthcare power of immigration attorney. Code status is DNR. She does not smoke. She drinks alcohol about once a week What is your current living situation?: I presently have a place to live Problems where you live: no known problems Problems where you live details: NA In the past 12 months, utilities in danger of being shut off: no In past 12 months, lack of transportation kept you from medical appts, meetings, work, or getting things needed for daily living: no In the past 12 mos, have been you worried that your food would run out before you had money to buy more?: never true In the past 12 mos, the food you bought just didn't last and you didn't have money to buy more?: never true Highest level of school completed/degree received: Master's degree Smoking Status: Never smoker Do you use any of these nicotine containing products: None Second hand tobacco smoke exposure: No How often do you have a drink containing alcohol: monthly or less How often do you have six or more drinks on one occasion: Never AUDIT-C Alcohol total score: 1 Non-prescribed substance use: denies use Caffeine: No How often does anyone, including family, friends and others, physically hurt you : never How often does anyone, including family, friends and others, insult or talk down to you: never How often does anyone, including family, friends and others, threaten you with harm: never How often does anyone, including family, friends and others, scream or curse at you: never service: No Meds Home Medications and Allergies Home Medications ?Medication ?Instructions ?Recorded ?Confirmed ?Type apixaban 5 mg tablet (Eliquis) 5 mg PO BID 02/23/22 03/24/24 History atorvastatin 40 mg tablet 40 mg PO DAILY 02/23/22 03/24/24 History calcium carbonate (Calcium 600) 600 mg PO BID 02/23/22 03/24/24 History cholecalciferol (vitamin D3) 125 5,000 unit PO DAILY 02/23/22 03/24/24 History mcg (5,000 unit) capsule hydrochlorothiazide 12.5 mg tablet 12.5 mg PO DAILY 02/23/22 03/24/24 History metoprolol tartrate 50 mg tablet 50 mg PO DAILY 02/23/22 03/24/24 History albuterol sulfate 90 mcg/actuation 2 puff inhalation Q4H PRN wheezing 03/24/24 03/24/24 History aerosol inhaler Allergies Allergy/AdvReac Type Severity Reaction Status Date / Time penicillin G Allergy Unknown Verified 03/24/24 17:58 Sulfa (Sulfonamide Allergy Unknown Verified 03/24/24 17:58 Antibiotics) Exam 2 Narrative: Exam Narrative: She is alert and appears in no distress. Speech is fluent. No problems with comprehension or expression. No facial asymmetry. Eyes are normal. Extraocular movements are full. Visual santos are intact. Oropharynx is normal. Tongue is midline. Intact sensation in her face bilaterally. Neck is supple without mass or adenopathy. Tilvmy-whtl-hvvppg is accurate and without dysmetria. Rapid finger movements are slow on the right and very slow and clumsy on the left. She is observed to write with her left hand with some difficulty. Strength testing in her upper extremities bilaterally is equal and full at 5/5 at shoulder flexion and extension, elbow flexion and extension, wrist flexion and extension, medical payment poster strength and finger extension. She reports subjectively her left arm feels cool to touch but has intact sensation to soft touch. By my estimation her left arm is slightly cool to touch compared to her right arm as well. Intact distal pulses. Lower extremity strength testing is also 5/5 bilaterally at hip flexion, knee flexion and extension, ankle dorsiflexion and plantar flexion. Intact pedal pulses. Const: Vital Signs, click to edit/add: Vital Signs - 24 hr 03/24/24 16:34 03/24/24 17:40 03/24/24 17:59 Temperature 98.3 F Pulse Rate 82 Pulse Rate [Left R adial] Pulse Rate [Pulse Oximeter] 74 Respiratory Rate 16 20 Blood Pressure 141/66 H Blood Pressure [Ri ght Arm] Blood Pressure [Ri ght Upper Arm] 151/76 H Pulse Oximetry 97 95 96 Oxygen Delivery Me thod Room Air 03/24/24 18:30 03/24/24 20:26 03/24/24 20:27 Temperature 98.1 F 98.1 F Pulse Rate Pulse Rate [Left R adial] 75 75 Pulse Rate [Pulse Oximeter] 71 Respiratory Rate 20 18 18 Blood Pressure Blood Pressure [Ri ght Arm] 142/82 H 142/82 H Blood Pressure [Ri ght Upper Arm] 145/63 H Pulse Oximetry 100 98 98 Oxygen Delivery Me thod Room Air Room Air Room Air 03/24/24 20:35 Temperature Pulse Rate Pulse Rate [Left R adial] Pulse Rate [Pulse Oximeter] Respiratory Rate 18 Blood Pressure Blood Pressure [Ri ght Arm] Blood Pressure [Ri ght Upper Arm] Pulse Oximetry 98 Oxygen Delivery Me thod Room Air Documenting provider has reviewed patient's vital signs: yes Hospitalist - H&P: Result Labs Labs: Short CBC 03/24/24 Range/Units 17:02 WBC 6.89 (4.50-11.00) K/uL Hgb 11.0 L (12.0-16.0) gm/dL Hct 33.9 (33.0-51.0) % Plt Count 245 (140-440) K/uL BMP 03/24/24 17:02 Sodium 137 Potassium 3.3 L Chloride 99 Carbon Dioxide 30 BUN 21 Creatinine 0.8 Glucose 104 Calcium 9.7 Cardiac Enzymes 03/24/24 03/24/24 Range/Units 17:02 18:50 Troponin I < 0.01 L < 0.01 L (0.01-0.04) ng/mL Imaging CT scan - head: Radiologist's impression: INDICATION: Left-sided weakness TECHNIQUE: Noncontrast axial CT of the head. Coronal and sagittal reformats. Bone and soft tissue algorithms. COMPARISON: CT head 03/02/2024 FINDINGS: Stable small chronic cortical infarcts involving the right pre and postcentral gyri. Suspect chronic lacunar infarct at the left cerebellar hemisphere. No evidence for recent hemorrhage or infarct. No midline shift, hydrocephalus or herniation. Calcific intracranial atherosclerotic plaquing. Unremarkable midline structures. Intact calvarium. Clear paranasal sinuses and mastoid air cells. Bilateral lens implants. IMPRESSION: 1. No CT evidence of acute intracranial abnormality, or significant interval change relative to 03/02/2024. Head CTA: Radiologist's impression: CLINICAL HISTORY: Patient with focal neurological deficits. TECHNIQUE: Standard helical CT image acquisition through the intracranial circulation following intravenous administration of contrast material with bolus tracking. 2D and 3D MIP images for post-processing were performed and interpreted on an independent workstation and 3D images were permanently archived. COMPARISON: CT same day. FINDINGS: There is no large vessel occlusion. 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 The right internal carotid artery is normal. The right middle cerebral artery and its branches are normal. The right anterior cerebral artery and its branches are normal. The left internal carotid artery is normal. The left middle cerebral artery and its branches are normal. The left anterior cerebral artery and its branches are normal. The right vertebral artery and PICA are normal. The left vertebral artery and PICA are normal. The vertebral arteries are codominant. The basilar artery is patent and appears normal. The right posterior cerebral artery is normal. The left posterior cerebral artery is normal. The visualized venous structures are patent. IMPRESSION: 1. No large vessel occlusion. 2. 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 Telehealth consultation with [facility]`s Neurointerventional team for enrollment in our long-term brain aneurysm surveillance program can by calling . Neck CTA: Radiologist's impression: CLINICAL HISTORY: Patient with focal neurological deficits. TECHNIQUE: Standard helical CT image acquisition of the neck up to the skull base after bolus intravenous contrast enhancement. 2D and 3D MIP images for post-processing were performed and interpreted on an independent workstation and 3D images were permanently archived. COMPARISON: CT same day. FINDINGS: The origins of the great vessels from the aortic arch are patent. The origin of the right vertebral artery is patent. The origin of the left vertebral artery is patent. The common carotid arteries are patent. There is a mild (<50%) stenosis at the origin of the right internal carotid artery by NASCET criteria, caused by non-calcified plaque with a <2mm residual lumen. There is no stenosis at the origin of the left internal carotid artery. The rest of the cervical segments of the internal carotid arteries are patent up to the skull base. The right vertebral artery is dominant. The cervical segments of the vertebral arteries are patent up to the skull base. The visualized lung apices demonstrate a calcified granuloma in the right middle lobe. The thyroid gland is unremarkable. The soft tissues of the neck are unremarkable. There are degenerative changes in the cervical spine. 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 Status: Suspected (2) Altered sensation due to acute stroke: Problem comment: Altered sensation of the left upper extremity suspected to be due to stroke. Status: Acute (3) Chronic anticoagulation: Problem comment: On apixaban for suspected but not confirmed atrial fibrillation and remote history of DVT Status: Acute (4) Hypertension: Problem comment: Permissive hypertension pending stroke evaluation and treatment Status: Acute Plan Patient is admitted to the hospital for evaluation management of neurologic symptoms suggestive of stroke. Primary symptoms are apraxia of the left hand and altered sensation in the left arm. Neurologic monitoring. Obtain MRI and echocardiogram. Continue statin and apixaban. Permissive hypertension with blood pressure. Total Time Spent Total Time Spent: Total time spent today is 80 minutes in evaluation and management and discussion with patient and daughter about plan of care on the day of admission.
[2024-03-24] MEDS: ATORVASTATIN CALCIUM 40 MG TABLET PO (21:37)
[2024-03-24] MEDS: APIXABAN 5 MG TABLET PO (21:37)
[2024-03-24] MEDS: METOPROLOL TARTRATE 25 MG TABLET 12.5 MG PO (21:37)
[2024-03-24] MEDS: SODIUM CHLORIDE 0.9 % (FLUSH) 10 ML SYRINGE 5 ML IVF (21:37)
[2024-03-24] MEDS: CALCIUM CARBONATE 500 MG TABLET PO (21:43)
[2024-03-25 04:16] VITALS: BP 104/60; PULSE 73; RESP 16; TEMP 36.6; O2SAT 93
--- NOTE | 2024-03-25 05:59 | PC.NURSE ---
Pt came to floor last night after feeling numbness in Left arm and left side of face. Symptoms appear resolved. Reporting zero pain. UP IND in room. VSS. Left side of body equally as strong as right. Awaiting MRI
[2024-03-25 07:00] VITALS: PULSE 65
--- NOTE | 2024-03-25 08:00 | CRLHL7_ITS ---
For Patients: As a result of the Century Cures Act, medical imaging exams and procedure reports are released immediately into your electronic medical record. You may view this report before your referring provider. If you have questions, please contact your health care provider. INDICATION: Left arm clumsiness. TECHNIQUE: Brain MRI without contrast. COMPARISON: Head CT from 03/24/2024. FINDINGS: Multiple foci of diffusion restriction within the right superior frontal/parietal lobes, predominantly cortically based and with accompanying variable FLAIR hyperintensity. These are consistent with acute to subacute infarcts. One of the infarctions involves the hand knob of the motor strip. There is additionally chronic cortical infarcts within the right precentral and postcentral gyri. No evidence of acute or chronic intracranial blood products. Scattered FLAIR hyperintensities within the supratentorial white matter, typical for chronic microvascular ischemic change. No mass effect or herniation. No hydrocephalus or extra-axial collections. The pituitary gland, parasellar structures and optic chiasm are normal. Several small chronic infarcts left inferior cerebellar hemisphere. All the major intracranial vascular structures demonstrate normal flow-related signal. The orbital contents are normal. No calvarial or skull base marrow replacing process. No obstructive sinus disease. No extracranial soft tissue findings. IMPRESSION: 1. Multiple acute to subacute infarcts within the right superior cerebral hemisphere, including the right hand knob of the motor strip. These infarcts involve the right MCA territory. There are also small chronic cortical infarcts within the right precentral and postcentral gyrus. 2. A few tiny chronic infarcts left cerebellar hemisphere. 3. Mild chronic microvascular ischemic changes. Dictated by Husam Vega MD @ 03/25/2024 12:13:07 PM (Electronically Signed)
[2024-03-25 08:14] VITALS: BP 116/51; PULSE 66; RESP 18; TEMP 36.6; O2SAT 99
[2024-03-25] MEDS: METOPROLOL TARTRATE 25 MG TABLET 12.5 MG PO (08:59)
[2024-03-25] MEDS: APIXABAN 5 MG TABLET PO (09:00)
[2024-03-25] MEDS: CALCIUM CARBONATE 500 MG TABLET PO (09:00)
[2024-03-25 11:36] VITALS: BP 130/73; PULSE 64; RESP 18; TEMP 36.7; O2SAT 98
--- NOTE | 2024-03-25 15:30 | PM.DS1 ---
DS: Providers Provider Time Seen by Provider: 08:20 Date Seen: 03/25/24 Date of admission: 03/24/24 19:31 Primary care physician: Karson Avitia MD Admitting Clinician: Mani Garcia MD Consults: 03/24/24 20:46 Consult to Occupational Therapy [CONS] Routine Comment: Reason(s) for OT Consult:: Evaluate and Treat Any Restrictions?:: No Restrictions Consult to Physical Therapy [CONS] Routine Comment: Reason(s) for PT Consult:: Evaluate and Treat Any Restrictions?:: No Restrictions Attending Physician on discharge: Carolyn Carrizales MD Date of Discharge: 03/25/24 DS: Diagnosis Discharge Diagnosis (1) 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 No clots or vegetations were seen on TTE. Stroke happened in the setting of current anticoagulation with Eliquis. Possible right proximal carotid plaque, no large vessel occlusion seen on CTA neck. 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 (3) Altered sensation due to acute stroke: Status: Acute Problem details: Altered sensation of the left upper extremity suspected to be due to stroke. (4) Chronic anticoagulation: Status: Acute Problem details: On apixaban for suspected but not confirmed atrial fibrillation and remote history of DVT (5) Hypertension: Status: Acute Problem details: Permissive hypertension pending stroke evaluation and treatment (6) Hyperlipidemia: Status: Chronic Problem details: - continue atorvastatin DS: Summary Hospital Course Hospital Course: Per H&P: Antoinette Dumont is a 88 year old left-handed female with history of stroke admitted through the emergency department with onset of left arm altered sensation and function starting about 330 this afternoon. Patient reports she was in her usual state of good health until around 330 this afternoon when she reports her left arm felt numb/cold/wooden. She briefly felt that she was having trouble speaking though that resolved relatively quickly. She did not feel weakness but she felt like her left hand was clumsy. She was unable to sign her signature with her left hand in the emergency department. She also briefly noted while she was in the emergency department that she had a little weakness on the left side of her mouth and that has resolved quickly. She did not have any new or changing visual symptoms. She did not have any left lower extremity symptoms. She had a previous stroke about 7 years ago. The primary symptoms of that were weakness in her left 4th and 5th fingers. At that time she had brain imaging that apparently showed multiple areas of previous ischemia. She has had no neurologic or stroke symptoms since that time until today. She does have a history of migraines. It has been years since she has had significant migraine headaches. When she would get migraines she would have a visual aura beforehand. She has not had that for some time either. In December of this year she developed a difficult and persistent cough. This lasted about a month and a half. She was seen by pulmonology. 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 She did not have a formal biopsy or diagnosis for that. Her respiratory symptoms, cough, have largely resolved. 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 Testing for other bacterial and fungal infections and tuberculosis were all apparently negative. Associated with this prolonged cough illness she did have significant weight loss. With her previous stroke she was evaluated for atrial fibrillation. She has extensive cardiac monitoring and evaluation which did not show evidence for atrial fibrillation but she was kept on apixaban because it was still clinically thought likely she has not had any problems with the apixaban other than easy bruising. She does have a history of a DVT about 20 years ago. She was briefly treated with warfarin at that time. As a part of her evaluation for her cough this summer she had a chest CT and CTA. The CTA did show diffuse nonobstructive coronary disease. Overnight she had partial improvement of her symptoms. Her left arm continues to feel a somewhat heavy, pressure-like sensation, but it is less so than admission. She denies any numbness or tingling of that area at this time. She has complete resolution of all other symptoms. She had an MRI and an echocardiogram today, results are as above. Dr. Mosquera from stroke neuro at [place] saw this patient via telemedicine. I was able to view his note with recommendations through the [facility] Epic record. He has recommended continuing Eliquis 5 mg b.i.d., therapies, permissive hypertension with BP less than 220/120 for 24 hours, then gradually lower to normotensive, LD goal less than 70, hemoglobin A1c less than 7, Zio patch, TTE (which was resulted prior to her discharge), follow-up with Stroke Clinic, follow-up with vascular surgery for are ICA stenosis, follow-up Neurology Interventional Radiology for incidental aneurysm. I discussed these recommendations with the patient and her family and they demonstrated understanding. I ordered the Zio patch to start today. Since her symptoms have essentially resolved with the exception of a heaviness of her left forearm, I do not think she will benefit from therapies at this time. I will ask her follow-up with her primary care provider to order the recommended referrals through [facility] and to obtain an LDL in a hemoglobin A1c. Dr. De Dios, please see Dr. Mosquera's note dated 03/25/24 in the [employer] system for a full detail of his recommendations. Antoinette had 2 daughters in her room this morning and a daughter and a son in the room this afternoon. I also spoke with her daughter in the hallway for an extended period of time in between. All total I spent 70 minutes speaking with the patient and her family today. Time Spent with Patient Time attestation: Total time spent providing and/or coordinating discharge services: Exam Narrative: Exam Narrative: General: No acute distress. Awake, alert, oriented x3. No pallor. No jaundice. Oropharynx: Clear. Mucous membranes moist. Cardiovascular: Regular rate and rhythm. No murmurs, gallops, or rubs. Respiratory: Clear to auscultation bilaterally. No wheezes or crackles. Abdomen: Bowel sounds present. Soft, nondistended, nontender. Extremities: No pedal edema. Neuro: There are no focal deficits. Romberg is negative. Cranial nerves 2-12 are intact. Extraocular movements are full. No nystagmus. No facial asymmetry. Tongue is midline. Peripheral vision and vision are grossly intact. Strength is 5/5 in all 4 extremities. DTRs intact and symmetric. Light touch sensation is intact in face body and extremities; patient reports a heavy pressure like sensation in her left forearm that is less than admission. Coordination is intact in upper and lower extremities. Const: Vital Signs, click to edit/add: Vital Signs - 24 hr 03/24/24 16:34 03/24/24 17:40 03/24/24 17:59 Temperature 98.3 F Pulse Rate 82 Pulse Rate [Left R adial] Pulse Rate [Pulse Oximeter] 74 Respiratory Rate 16 20 Blood Pressure 141/66 H Blood Pressure [Ri ght Arm] Blood Pressure [Ri ght Upper Arm] 151/76 H Pulse Oximetry 97 95 96 Oxygen Delivery Me thod Room Air 03/24/24 18:30 03/24/24 20:26 03/24/24 20:27 Temperature 98.1 F 98.1 F Pulse Rate Pulse Rate [Left R adial] 75 75 Pulse Rate [Pulse Oximeter] 71 Respiratory Rate 20 18 18 Blood Pressure Blood Pressure [Ri ght Arm] 142/82 H 142/82 H Blood Pressure [Ri ght Upper Arm] 145/63 H Pulse Oximetry 100 98 98 Oxygen Delivery Me thod Room Air Room Air Room Air 03/24/24 20:35 03/24/24 21:45 03/24/24 22:38 Temperature 98.6 F Pulse Rate 63 Pulse Rate [Left R adial] 74 Pulse Rate [Pulse Oximeter] Respiratory Rate 18 18 Blood Pressure Blood Pressure [Ri ght Arm] 122/51 L Blood Pressure [Ri ght Upper Arm] Pulse Oximetry 98 98 Oxygen Delivery Me thod Room Air Room Air 03/24/24 22:45 03/25/24 04:16 03/25/24 08:14 Temperature 98 F 97.8 F Pulse Rate Pulse Rate [Left R adial] 74 73 66 Pulse Rate [Pulse Oximeter] Respiratory Rate 18 16 18 Blood Pressure Blood Pressure [Ri ght Arm] 104/60 116/51 L Blood Pressure [Ri ght Upper Arm] Pulse Oximetry 93 99 Oxygen Delivery Me thod Room Air Room Air 03/25/24 11:36 Temperature 98.1 F Pulse Rate Pulse Rate [Left R adial] 64 Pulse Rate [Pulse Oximeter] Respiratory Rate 18 Blood Pressure Blood Pressure [Ri ght Arm] 130/73 Blood Pressure [Ri ght Upper Arm] Pulse Oximetry 98 Oxygen Delivery Me thod Room Air Documenting provider has reviewed patient's vital signs: yes DS: Data Data Completed and Pending Completed studies during hospitalization: 03/24/2024 165 EKG: Sinus rhythm with occasional premature ventricular complexes, 69 beats per minute, right bundle-branch block. 03/24/2024 182 EKG: Sinus rhythm with frequent premature ventricular complexes, 76 beats per minute, right bundle-branch block. Ordering Physician: Jose A Morgan M.D. Date of Service: 03/24/24 Procedure(s): CT head/brain wo con Accession Number(s): [id number] cc: Jose A Morgan M.D.; Karson Avitia M.D.~ ADDENDUM INDICATION: Left-sided weakness TECHNIQUE: Noncontrast axial CT of the head. Coronal and sagittal reformats. Bone and soft tissue algorithms. COMPARISON: CT head 03/02/2024 FINDINGS: Stable small chronic cortical infarcts involving the right pre and postcentral gyri. Suspect chronic lacunar infarct at the left cerebellar hemisphere. No evidence for recent hemorrhage or infarct. No midline shift, hydrocephalus or herniation. Calcific intracranial atherosclerotic plaquing. Unremarkable midline structures. Intact calvarium. Clear paranasal sinuses and mastoid air cells. Bilateral lens implants. IMPRESSION: 1. No CT evidence of acute intracranial abnormality, or significant interval change relative to 03/02/2024. Please note that all CT scans at this facility use dose modulation, iterative reconstruction, and/or weight-based dosing when appropriate to reduce radiation dose to as low as reasonably achievable. Dictated by Shanna James MD @ 03/24/2024 6:22:22 PM ----- ADDENDUM ----- Report of no acute findings was communicated to Dr. Morgan at 6:28 p.m. on 03/24/2024. Dictated by Shanna James MD @ Mar 24 2024 10:04PM (Electronically Signed) For Patients: As a result of the Cures Act, medical imaging exams and procedure reports are released immediately into your electronic medical record. You may view this report before your referring provider. If you have questions, please contact your health care provider. INDICATION: Left-sided weakness TECHNIQUE: Noncontrast axial CT of the head. Coronal and sagittal reformats. Bone and soft tissue algorithms. COMPARISON: CT head 03/02/2024 FINDINGS: Stable small chronic cortical infarcts involving the right pre and postcentral gyri. Suspect chronic lacunar infarct at the left cerebellar hemisphere. No evidence for recent hemorrhage or infarct. No midline shift, hydrocephalus or herniation. Calcific intracranial atherosclerotic plaquing. Unremarkable midline structures. Intact calvarium. Clear paranasal sinuses and mastoid air cells. Bilateral lens implants. IMPRESSION: 1. No CT evidence of acute intracranial abnormality, or significant interval change relative to 03/02/2024. Please note that all CT scans at this facility use dose modulation, iterative reconstruction, and/or weight-based dosing when appropriate to reduce radiation dose to as low as reasonably achievable. Dictated by Shanna James MD @ 03/24/2024 6:22:22 PM (Electronically Signed) Ordering Physician: Jose A Morgan M.D. Date of Service: 03/24/24 Procedure(s): CT angio head Accession Number(s): [id number] cc: Jose A Morgan M.D.; Karson Avitia M.D.~ For Patients: As a result of the Cures Act, medical imaging exams and procedure reports are released immediately into your electronic medical record. You may view this report before your referring provider. If you have questions, please contact your health care provider. DATE: 03/24/2024 CLINICAL HISTORY: Patient with focal neurological deficits. TECHNIQUE: Standard helical CT image acquisition through the intracranial circulation following intravenous administration of contrast material with bolus tracking. 2D and 3D MIP images for post-processing were performed and interpreted on an independent workstation and 3D images were permanently archived. COMPARISON: CT same day. FINDINGS: There is no large vessel occlusion. 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 The right internal carotid artery is normal. The right middle cerebral artery and its branches are normal. The right anterior cerebral artery and its branches are normal. The left internal carotid artery is normal. The left middle cerebral artery and its branches are normal. The left anterior cerebral artery and its branches are normal. The right vertebral artery and PICA are normal. The left vertebral artery and PICA are normal. The vertebral arteries are codominant. The basilar artery is patent and appears normal. The right posterior cerebral artery is normal. The left posterior cerebral artery is normal. The visualized venous structures are patent. IMPRESSION: 1. No large vessel occlusion. 2. 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 Telehealth consultation with [facility]s Neurointerventional team for enrollment in our long-term brain aneurysm surveillance program can by calling . Please note that all CT scans at this facility use dose modulation, iterative reconstruction, and/or weight-based dosing when appropriate to reduce radiation dose to as low as reasonably achievable. Dictated by Nicolas Bacon MD @ 03/24/2024 8:25:13 PM (Electronically Signed) Ordering Physician: Jose A Morgan M.D. Date of Service: 03/24/24 Procedure(s): CT angio neck Accession Number(s): [id number] cc: Jose A Morgan M.D.; Karson Avitia M.D.~ For Patients: As a result of the Cures Act, medical imaging exams and procedure reports are released immediately into your electronic medical record. You may view this report before your referring provider. If you have questions, please contact your health care provider. DATE: 03/24/2024 CLINICAL HISTORY: Patient with focal neurological deficits. TECHNIQUE: Standard helical CT image acquisition of the neck up to the skull base after bolus intravenous contrast enhancement. 2D and 3D MIP images for post-processing were performed and interpreted on an independent workstation and 3D images were permanently archived. COMPARISON: CT same day. FINDINGS: The origins of the great vessels from the aortic arch are patent. The origin of the right vertebral artery is patent. The origin of the left vertebral artery is patent. The common carotid arteries are patent. There is a mild (<50%) stenosis at the origin of the right internal carotid artery by NASCET criteria, caused by non-calcified plaque with a <2mm residual lumen. There is no stenosis at the origin of the left internal carotid artery. The rest of the cervical segments of the internal carotid arteries are patent up to the skull base. The right vertebral artery is dominant. The cervical segments of the vertebral arteries are patent up to the skull base. The visualized lung apices demonstrate a calcified granuloma in the right middle lobe. The thyroid gland is unremarkable. The soft tissues of the neck are unremarkable. There are degenerative changes in the cervical spine. 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 Please note that all CT scans at this facility use dose modulation, iterative reconstruction, and/or weight-based dosing when appropriate to reduce radiation dose to as low as reasonably achievable. Dictated by Nicolas Bacon MD @ 03/24/2024 8:21:39 PM (Electronically Signed) Ordering Physician: Mani Garcia M.D. Date of Service: 03/25/24 Procedure(s): MR head/brain wo con Accession Number(s): [id number] cc: Mani Garcia M.D.; Karson Avitia M.D.~ For Patients: As a result of the Century Cures Act, medical imaging exams and procedure reports are released immediately into your electronic medical record. You may view this report before your referring provider. If you have questions, please contact your health care provider. INDICATION: Left arm clumsiness. TECHNIQUE: Brain MRI without contrast. COMPARISON: Head CT from 03/24/2024. FINDINGS: Multiple foci of diffusion restriction within the right superior frontal/parietal lobes, predominantly cortically based and with accompanying variable FLAIR hyperintensity. These are consistent with acute to subacute infarcts. One of the infarctions involves the hand knob of the motor strip. There is additionally chronic cortical infarcts within the right precentral and postcentral gyri. No evidence of acute or chronic intracranial blood products. Scattered FLAIR hyperintensities within the supratentorial white matter, typical for chronic microvascular ischemic change. No mass effect or herniation. No hydrocephalus or extra-axial collections. The pituitary gland, parasellar structures and optic chiasm are normal. Several small chronic infarcts left inferior cerebellar hemisphere. All the major intracranial vascular structures demonstrate normal flow-related signal. The orbital contents are normal. No calvarial or skull base marrow replacing process. No obstructive sinus disease. No extracranial soft tissue findings. IMPRESSION: 1. Multiple acute to subacute infarcts within the right superior cerebral hemisphere, including the right hand knob of the motor strip. These infarcts involve the right MCA territory. There are also small chronic cortical infarcts within the right precentral and postcentral gyrus. 2. A few tiny chronic infarcts left cerebellar hemisphere. 3. Mild chronic microvascular ischemic changes. Dictated by Husam Vega MD @ 03/25/2024 12:13:07 PM (Electronically Signed) 03/25/2024 echocardiogram: Normal LV size, normal wall thickness, normal global systolic function, calculated EF of 61%. The aortic valve is trileaflet and sclerotic, no stenosis and trivial regurgitation. The mitral valve is sclerotic, mild mitral regurgitation. Right ventricular cavity size is normal, global systolic RV function is normal. No pericardial effusion. Negative bubble JONNA 07/31/2015. Labs on day of discharge: Labs from last 24 hours 03/24/24 03/24/24 18:50 17:02 WBC 6.89 RBC 3.63 L Hgb 11.0 L Hct 33.9 MCV 93 MCH 30 MCHC 32 RDW Coeff of Barb 13.8 Plt Count 245 Neut % (Auto) 46.8 Lymph % (Auto) 38.5 [place] % (Auto) 10.9 Eos % (Auto) 3.0 Baso % (Auto) 0.4 Neut # (Auto) 3.22 Lymph # (Auto) 2.65 [place] # (Auto) 0.80 Eos # (Auto) 0.21 Baso # (Auto) 0.03 Abs Immat Gran (auto) 0.03 Imm/Tot Granulo (auto) 0.4 INR 1.29 H APTT 30 Sodium 137 Potassium 3.3 L Chloride 99 Carbon Dioxide 30 Anion Gap 8 BUN 21 Creatinine 0.8 Estimated Creat Clear 32.79 Estimated GFR 71 Glucose 104 Calcium 9.7 Troponin I < 0.01 L < 0.01 L Discharge Plan Discharge Disposition: Home, Self-Care Date of Admission: 03/24/24 19:31 Attending Provider on Discharge: Carolyn Carrizales Primary Care Provider: Karson Avitia Condition: Stable Anticipated Discharge Date/Time: 03/25/24 15:37 Discharge Medications: Continued albuterol sulfate 2.5 mg /3 mL (0.083 %) solution for nebulization 2.5 mg inhalation Q6H PRN sodium chloride 10 % solution for nebulization inhalation PRN Calcium + Vitamin D 1 tab PO BID triamcinolone acetonide 0.1 % cream 1 applic topical BID PRN carboxymethylcellulose sodium 1 % drops, liquid gel 1 drp ophthalmic (eye) Q1H PRN zinc sulfate 50 mg zinc (220 mg) capsule 50 mg PO DAILY atorvastatin 40 mg tablet 40 mg PO DAILY Eliquis 5 mg tablet 5 mg PO BID metoprolol tartrate 50 mg tablet 25 mg PO BID Held hydrochlorothiazide 12.5 mg tablet 12.5 mg PO DAILY Hold Instructions: Resume on 03/27/24. Discharge Orders: Discharge Order (Routine); Ordered 03/25/24 Ordered By: Carolyn Carrizales Additional Instructions: Zio patch has been applied today. Please follow-up with your primary care provider for results when it has completed. Continue Eliquis as prescribed. Hold your hydrochlorothiazide today and tomorrow. Restart metoprolol either tonight or tomorrow morning, allow for higher blood pressure than normal yet tonight. See your primary care provider in 5-7 days to get your LDL and hemoglobin A1c checked as well as to get referrals for the stroke clinic and vascular surgery for right ICA stenosis. Call [phone] to enroll in the long-term brain aneurysm surveillance program. Activity Level: No Restrictions Discharge Diet: Heart Healthy (2 gm sodium, low fat) Follow Up Appointments: Karson Avitia MD [Primary Care Provider] - 04/03/24 2:30 pm ([facility] for post-hospital follow up, lipid panel and HgbA1C) Forms: [employer] Info Instructions
[2024-03-25 15:42] VITALS: PULSE 73
--- NOTE | 2024-03-25 17:38 | PC.NURSE ---
Discharge: The patient discharged home with her daughter this afternoon with all her belongings. Stroke education was given. Recommendations for follow up with neuro and neuro IR were also given. All questions were answered. The patient is still reporting some weakness while using her L hand and she also reports intermittent heaviness to her L arm. Chen GAN BSN
== END 2024-03-25 16:49 | disposition home or self-care (01) ==
LOC: ED 19:13 → MEDSURG 19:32
PROVIDERS: Admitting Provider Family Medicine; Emergency Provider Internal Medicine; PCP Family Medicine; Visit Provider Family Medicine
DX: I63.411 Cerebral infarction due to embolism of right middle cerebral artery (principal); R48.2 Apraxia; R53.1 Weakness; I72.9 Aneurysm of unspecified site; I10 Essential (primary) hypertension; I25.118 Atherosclerotic heart disease of native coronary artery with other forms of angina pectoris; I34.0 Nonrheumatic mitral (valve) insufficiency; E78.5 Hyperlipidemia, unspecified; G47.33 Obstructive sleep apnea (adult) (pediatric); I45.10 Unspecified right bundle-branch block; Z79.01 Long term (current) use of anticoagulants; Z86.718 Personal history of other venous thrombosis and embolism; Z86.69 Personal history of other diseases of the nervous system and sense organs; Z90.710 Acquired absence of both cervix and uterus; Z90.722 Acquired absence of ovaries, bilateral; Z90.49 Acquired absence of other specified parts of digestive tract; Z90.79 Acquired absence of other genital organ(s); Z90.10 Acquired absence of unspecified breast and nipple; Z98.890 Other specified postprocedural states
CPT/HCPCS: 36415; 70450; 70496; 70498; 70551; 80048; 84484; 85025; 85610; 85730; 93005; 93246; 93306; 94761; 97116; 97162; 97165; 99283; 99285; 99291; G0378; A9270; Q9967

== ENCOUNTER 2024-05-29 15:06 | Inpatient (IN) | payer MEDICARE, BC, SELFPAY ==
[2024-05-29] VITALS (26 sets, daily range): BP systolic 114–160; BP diastolic 54–91; PULSE 99–119; RESP 18; TEMP 36.9–38; O2SAT 85–100; BMI 22.7; BMI 23.1
--- NOTE | 2024-05-29 16:30 | ED.GENADULT ---
HPI - General Adult General Date Seen: 05/29/24 Chief complaint: Unspecified Complaint, Adult Stated complaint: [facility] sent patient, high BP, EKG done Time Seen by Provider: 05/29/24 15:31 Source: patient Mode of arrival: ambulatory Limitations: no limitations History of Present Illness HPI narrative: Patient is an 88-year-old female presenting to emergency department after being sent in by her clinic for tachycardia. I spoke to her daughter on the phone also. Along with the PA that sent the patient in. The patient was feeling dehydrated with a cough and last time she had symptoms like this she had pneumonia so she went in to be evaluated. She was also having oxygen saturation of 93 which is low for this patient. While at the clinic her provider noticed her heart rate was 116 and do that was concerned so she called emergency department to inform us that she was sending the patient over. In the patient arrived heart rate was improved to the 90s but did seem to move around quite a bit from the 80s to the low 100s. Her oxygen saturation for also was between 93 and 99%. The lower number was when she was talking on the phone to her daughter. Her daughter, who is a physician, states that the patient just took albuterol couple hours prior to arrival to the clinic and I could be was causing the tachycardia. The patient also was recently diagnosed with sarcoidosis. She is supposed to take feel viewed overall is feeling whenever she develops a cough for her sarcoidosis. Patient also states she has been constant upper greenish mucus. Has not noticed any fevers or chills. Denies chest pain or shortness of breath. She states she had a sore throat yesterday that has since resolved. Denies lightheadedness, dizziness. She states she always feels well. Does have a history of a previous left leg blood clot. Related Data Home Medications ?Medication ?Instructions ?Recorded ?Confirmed apixaban 5 mg tablet (Eliquis) 5 mg PO BID 02/23/22 05/29/24 atorvastatin 40 mg tablet 40 mg PO DAILY 02/23/22 05/29/24 hydrochlorothiazide 12.5 mg tablet 12.5 mg PO DAILY 02/23/22 05/29/24 metoprolol tartrate 50 mg tablet 25 mg PO BID 02/23/22 05/29/24 Calcium + Vitamin D 1 tab PO BID 03/25/24 05/29/24 albuterol sulfate 2.5 mg/3 mL 2.5 mg inhalation Q6H PRN 03/25/24 05/29/24 (0.083 %) solution for nebulization carboxymethylcellulose sodium 1 % 1 drp ophthalmic (eye) Q1H PRN 03/25/24 05/29/24 eye liquid gel drops sodium chloride 10 % for ml inhalation PRN 03/25/24 nebulization triamcinolone acetonide 0.1 % 1 applic topical BID PRN 03/25/24 03/25/24 topical cream zinc sulfate 50 mg zinc (220 mg) 50 mg PO DAILY 03/25/24 05/29/24 capsule Allergies Allergy/AdvReac Type Severity Reaction Status Date / Time penicillin G Allergy Unknown Verified 05/29/24 15:29 Sulfa (Sulfonamide Allergy Unknown Verified 05/29/24 15:29 Antibiotics) Review of Systems Status of ROS: Reports: 10 or more systems reviewed and unremarkable except as noted in History and below [facility] Medical History (Updated 05/29/24 @ 19:01 by Juan Antonio Early DO) Hypertension ?I10 - Essential (primary) hypertension (ICD-10) Obstructive sleep apnea ?G47.33 - Obstructive sleep apnea (adult) (pediatric) (ICD-10) Coronary artery disease ?I25.10 - Atherosclerotic heart disease of creek coronary artery without angina pectoris (ICD-10) Mitral regurgitation ?I34.0 - Nonrheumatic mitral (valve) insufficiency (ICD-10) Breast cancer ?C50.919 - Malignant neoplasm of unspecified site of unspecified female breast (ICD-10) Bronchiectasis ?J47.9 - Bronchiectasis, uncomplicated (ICD-10) Chronic anticoagulation ?Z79.01 - 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 (ICD-10) Hyperlipidemia ?E78.5 - Hyperlipidemia, unspecified (ICD-10) Surgical History History of total abdominal hysterectomy and bilateral salpingo-oophorectomy ?Z90.710 - Acquired absence of both cervix and uterus (ICD-10) ?Z90.722 - Acquired absence of ovaries, bilateral (ICD-10) ?Z90.79 - Acquired absence of other genital organ(s) (ICD-10) History of cholecystectomy ?Z90.49 - Acquired absence of other specified parts of digestive tract (ICD-10) History of bladder repair surgery ?Z98.890 - Other specified postprocedural states (ICD-10) History of appendectomy ?Z90.49 - Acquired absence of other specified parts of digestive tract (ICD-10) H/O mastectomy ?Z90.10 - Acquired absence of unspecified breast and nipple (ICD-10) Family History Mother Bright's disease Father Heart disease Social History Narrative: She lives in [place]. She lives independently. She indicates that her 2 daughters, Sandie and Kendal and her son Sanjeev would be healthcare power of corporate associate attorney. Code status is DNR. She does not smoke. She drinks alcohol about once a week What is your current living situation?: I presently have a place to live Problems where you live: no known problems Problems where you live details: NA In the past 12 months, utilities in danger of being shut off: no In the past 12 mos, have been you worried that your food would run out before you had money to buy more?: never true In the past 12 mos, the food you bought just didn't last and you didn't have money to buy more?: never true Highest level of school completed/degree received: Master's degree Smoking Status: Never smoker Do you use any of these nicotine containing products: None Second hand tobacco smoke exposure: No How often do you have a drink containing alcohol: monthly or less How often do you have six or more drinks on one occasion: Never AUDIT-C Alcohol total score: 1 Non-prescribed substance use: denies use Caffeine: No How often does anyone, including family, friends and others, physically hurt you: never How often does anyone, including family, friends and others, insult or talk down to you: never How often does anyone, including family, friends and others, threaten you with harm: never How often does anyone, including family, friends and others, scream or curse at you: never service: No Exam Narrative: Exam Narrative: Const: Well-nourished, Well-developed, in no distress Eyes: PERRL, no conjunctival injection, and symmetrical lids HENT: Atraumatic external nose and ears. Moist mucous membranes. Neck: Symmetric, trachea midline, No thyromegaly. CVS: RRR, No murmurs or gallops. Peripheral pulses 2+ and equal in all extremities RESP: Unlabored respiratory effort. Clear to auscultation bilaterally. GI: Nontender/Nondistended, No rebound or guarding. MSK:Extremities w/o deformity, Normal Active ROM Skin: Warm, Dry. No rashes or lesions. Neuro: Normal Muscle tone, No focal neurological deficits. Psych: Awake, Alert, & Oriented x3. Appropriate mood and affect. Const: Vital Signs, click to edit/add: Vital Signs - 24 hr 05/29/24 15:23 05/29/24 16:05 05/29/24 17:34 Temperature 100.4 F H 99.7 F H 99.2 F Pulse Rate [Left P ulse Oximeter] 99 107 H Respiratory Rate 18 18 Blood Pressure [Ri t Upper Arm] 153/91 H 160/82 H Pulse Oximetry 99 97 Oxygen Delivery Me thod Room Air Room Air Course Vital Signs Vital signs: Initial Vital Signs Temperature 100.4 F H 05/29/24 15:23 Temperature Source Temporal Artery Scan 05/29/24 15:23 Pulse Rate 99 05/29/24 15:23 Respiratory Rate 18 05/29/24 15:23 Blood Pressure 153/91 H 05/29/24 15:23 Blood Pressure Mean 111 H 05/29/24 15:23 Blood Pressure Position Sitting 05/29/24 15:23 Pulse Oximetry 99 05/29/24 15:23 Oxygen Delivery Method Room Air 05/29/24 15:23 Vital Signs Temperature 100.4 F H 05/29/24 15:23 Pulse Rate 99 05/29/24 15:23 Respiratory Rate 18 05/29/24 15:23 Blood Pressure 153/91 H 05/29/24 15:23 Pulse Oximetry 99 05/29/24 15:23 Oxygen Delivery Method Room Air 05/29/24 15:23 Temperature 99.2 F 05/29/24 17:34 Pulse Rate 107 H 05/29/24 17:34 Respiratory Rate 18 05/29/24 17:34 Blood Pressure 160/82 H 05/29/24 17:34 Pulse Oximetry 97 12/17/24 17:34 Oxygen Delivery Method Room Air 05/29/24 17:34 Medications Administered Medications: Discontinued Medications Generic Name Dose Route Start Last Admin Trade Name Mulugeta PRN Reason Stop Dose Admin Azithromycin 500 mg 05/29/24 18:10 05/29/24 18:29 Azithromycin 250 Mg Tablet PO 05/29/24 18:11 500 mg ONCE ONE Administration Sodium Chloride 1,000 mls @ 1,000 mls/hr 05/29/24 16:15 05/29/24 18:28 0.9 % Sodium Chloride 1000 Ml IV 05/29/24 17:14 Infused .Q1H ELAINE Infusion Ceftriaxone Sodium 1 gm/ 100 mls @ 200 mls/hr 05/29/24 18:10 05/29/24 18:33 Sodium Chloride IVPB 05/29/24 18:11 200 mls/hr ONCE ONE Administration Medical Decision Making MDM Narrative Medical decision making narrative: Patient is an 88-year-old female presenting to the emergency department for cough, tachycardia. With this cough in tachycardia there is some concerned she could have pneumonia as this was similar to previous symptoms. I will straight to a chest CT though because of or higher concerned she could have pneumonia not want to miss it but for simple chest x-ray. Will also do a D-dimer for possible blood clot so she does have previous history of blood clots. Will hold off on the CT until I am know if it needs to be a CTA or not. This also helped look for pneumothorax. Will also do an EKG, troponin, BMP, COVID/flu/RSV. With her episodes of tachycardia and initial temp oral temperature 100.4? she does meet SIRS criteria and lactate will be ordered. Of note repeat oral temperature was 99.7? without any intervention. She also states she is feeling dehydrated in her mouth does look dry so will give her a L of fluids. Will hold off on doing the full 30 per kilos of fluids until better determination if the patient is septic. At this time she appears stable. While I was speaking to her her heart rate mostly stayed in the 90s with oxygenation of 97 but when she got on the phone for some reason her heart rate spiked to the 110's and she was oxygenating in the low 90s. She has not seen anxious at all during this event and was having a very normal conversation with her daughter. Patient's lab work shows a white count of 13. Shows the elevated D-dimer of 3.23. She is on Eliquis but concerned she was having difficulty remembering when she was taking albuterol I cannot say for certain she was taking the Eliquis as directed. Will do a CTA for better evaluation. BMP shows no concerning findings. Lactate did come back elevated 2.2. Viral swabs are negative. EKG appears to show a sinus tachycardia with frequent PVCs. I am able to see P waves in front of most of the QRS complexes. Does have some new T-wave inversions but is not having any chest pain. Likely strain from her tachycardia. Troponin within normal limits. CTA returned reviewed by myself the radiologist appears to show a left sided pneumonia. The radiologist does not believe this is related to her sarcoidosis. Previous imaging provided by the patient's daughter showed a right-sided pneumonia. Could also be related to malignancy but concerning the patient is routinely seen pulmonology seems unlikely a new cancer has developed in that time. Did give her 30 per kilos of fluids for her sepsis and start her on Rocephin and azithromycin. She is not requiring oxygen is usually satting between 93 and 97%. Blood pressure has been stable. She is agreeable for admission. Lab Data Labs: Lab Results 05/29/24 05/29/24 05/29/24 Range/Units 16:14 16:36 16:49 WBC 13.86 H (4.50-11.00) K/uL RBC 3.83 L (4.00-5.20) m/uL Hgb 11.5 L (12.0-16.0) gm/dL Hct 35.8 (33.0-51.0) % MCV 94 (80-100) fL MCH 30 (26-34) pg MCHC 32 (32-36) gm/dL RDW Coeff of Barb 13.3 (11.5-15.5) % Plt Count 309 (140-440) K/uL Neut % (Auto) 67.2 (42.0-72.0) % Lymph % (Auto) 15.7 L (20-44) % Rosebud % (Auto) 12.0 H (0.0-11.0) % Eos % (Auto) 4.8 (0.0-7.0) % Baso % (Auto) 0.2 (0.0-3.0) % Neut # (Auto) 9.30 H (1.7-7.0) K/uL Lymph # (Auto) 2.20 (0.90-2.90) K/uL Rosebud # (Auto) 1.70 H (0.00-0.90) K/UL Eos # (Auto) 0.70 H (0.00-0.50) K/uL Baso # (Auto) 0.00 (0.00-0.30) K/uL Abs Immat Gran (auto) 0.00 (0.00-0.30) K/uL Imm/Tot Granulo (auto) 0.1 % D-Dimer Quant (PE/DVT) 3.23 H (0.00-0.50) ug/ml Sodium 138 (135-149) mmol/L Potassium 4.1 (3.6-5.1) mmol/L Chloride 100 (96-114) mmol/L Carbon Dioxide 30 (20-32) mmol/L Anion Gap 8 (7-15) mEq/L BUN 18 (7-30) mg/dL Creatinine 0.8 (0.5-1.5) mg/dL Estimated Creat Clear 32.79 Estimated GFR 71 ml/min Glucose 127 H (60-115) mg/dL Lactate 2.2 H (0.5-1.9) mmol/L Calcium 10.7 H (8.4-10.6) mg/dL SARS-CoV-2 (PCR) Negative SARS-CoV-2 (Negative) Influenza Type A (PCR) Negative PCR FLU A (Negative) Influenza Type B (PCR) Negative PCR FLU B (Negative) RSV (PCR) Negative PCR RSV (Negative) Lab Acknowledgement New Spec Needed POC Troponin I 0.00 L (0.01-0.04) ng/ml ECG Data Attestation: I personally reviewed and interpreted this ECG as follows: Prior ECG tracings: available for review Interpretation: Sinus tachycardia with a rate of 115 beats per minute with multiple PVCs. Normal intervals, normal axis, ST abnormalities. Does have new T-wave inversions in V3 and V4. Could be related to heart strain from a tachycardia. Also apparent right bundle-branch block. Appears similar previous EKGs on file Discharge Plan Discharge Clinical Impression: Pneumonia Qualifiers: Pneumonia type: due to unspecified organism Laterality: left Lung location: unspecified part of lung Qualified Code(s): J18.9 - Pneumonia, unspecified organism Sepsis Qualifiers: Sepsis type: sepsis due to unspecified organism Sepsis acute organ dysfunction status: without acute organ dysfunction Qualified Code(s): A41.9 - Sepsis, unspecified organism Patient Disposition: Admitted As Observation Condition: Stable Prescriptions: No Action albuterol sulfate 2.5 mg /3 mL (0.083 %) solution for nebulization 2.5 mg inhalation Q6H PRN sodium chloride 10 % solution for nebulization inhalation PRN Calcium + Vitamin D 1 tab PO BID triamcinolone acetonide 0.1 % cream 1 applic topical BID PRN carboxymethylcellulose sodium 1 % drops, liquid gel 1 drp ophthalmic (eye) Q1H PRN zinc sulfate 50 mg zinc (220 mg) capsule 50 mg PO DAILY atorvastatin 40 mg tablet 40 mg PO DAILY Eliquis 5 mg tablet 5 mg PO BID metoprolol tartrate 50 mg tablet 25 mg PO BID hydrochlorothiazide 12.5 mg tablet 12.5 mg PO DAILY Follow Up/Referrals: Karson Avitia MD [Primary Care Provider] -
[2024-05-29 16:38] LABS: Basophils Percent Auto 0.2 % (0.0-3.0); Eosinophils Percent Auto 4.8 % (0.0-7.0); Hematocrit 35.8 % (33.0-51.0); Hemoglobin* 11.5 gm/dL (12.0-16.0); Immature Granulocytes Pct Auto 0.1 %; Lymphocytes Percent Auto 15.7 % (20-44); Mean Corpuscular HGB Conc 32 gm/dL (32-36); Mean Corpuscular Hemoglobin 30 pg (26-34); Mean Corpuscular Volume 94 fL (80-100); Neutrophils Percent Auto 67.2 % (42.0-72.0); Platelet Count* 309 K/uL (140-440); RDW Coefficient of Variation % 13.3 % (11.5-15.5); Red Blood Count 3.83 m/uL (4.00-5.20); White Blood Count* 13.86 K/uL (4.50-11.00)
[2024-05-29 16:38] LABS: Lab Add On Test New Spec Needed
[2024-05-29 16:40] LABS: Chloride* 100 mmol/L (96-114); Potassium* 4.1 mmol/L (3.6-5.1); Sodium* 138 mmol/L (135-149)
[2024-05-29 16:41] LABS: Slide Review Reflex No
[2024-05-29 16:43] LABS: Anion Gap 8 mEq/L (7-15); Blood Urea Nitrogen* 18 mg/dL (7-30); Carbon Dioxide* 30 mmol/L (20-32); Creatinine* 0.8 mg/dL (0.5-1.5); Est. Creatinine Clearance* 32.79; Estimated Glomerular Filt Rate 71 ml/min; Glucose* 127 mg/dL (60-115)
[2024-05-29] MEDS: 0.9 % SODIUM CHLORIDE 1000 ml 1,000 ML IV (16:43)
[2024-05-29 16:44] LABS: Calcium* 10.7 mg/dL (8.4-10.6)
[2024-05-29 16:47] LABS: D Dimer Quantitative* 3.23 ug/ml (0.00-0.50)
[2024-05-29 16:53] LABS: Lactate* 2.2 mmol/L (0.5-1.9)
--- NOTE | 2024-05-29 17:01 | CRLHL7_ITS ---
For Patients: As a result of the Century Cures Act, medical imaging exams and procedure reports are released immediately into your electronic medical record. You may view this report before your referring provider. If you have questions, please contact your health care provider. INDICATION: Cough history of DVT TECHNIQUE: CT chest with 95 mL Isovue 370 COMPARISON: None. FINDINGS: Lungs and pleura: Small left effusion. Right lower lobe granuloma. Bilateral ground-glass opacities could represent pulmonary edema could be inflammatory infectious. Left perihilar soft tissue Thickening which extends into the left upper lobe with dense consolidation. Heart and vasculature: Heart size is enlarged. Thoracic aorta and pulmonary artery are normal in caliber. No pulmonary emboli. Lymph nodes/mediastinum: No mediastinal, hilar, or axillary adenopathy. Chest wall: Left mastectomy Upper abdomen: No significant findings. Bones: Unremarkable for age. IMPRESSION: 1. No pulmonary emboli 2. Left perihilar soft thickening with extension into the left upper lobe with dense airspace consolidation. Related findings could be to pneumonia with possibly reactive lymph nodes versus malignancy. Recommend short interval follow-up with repeat imaging in 2 months. 3. Mild perihilar ground-glass opacities could be related to pulmonary edema or other infectious inflammatory etiologies. Please note that all CT scans at this facility use dose modulation, iterative reconstruction, and/or weight-based dosing when appropriate to reduce radiation dose to as low as reasonably achievable. Dictated by Precious Sheridan MD @ 05/29/2024 6:01:45 PM (Electronically Signed)
[2024-05-29 17:06] LABS: PCR FLU A Negative PCR FLU A (Negative); PCR FLU B Negative PCR FLU B (Negative); PCR RSV Negative PCR RSV (Negative); SARS PCR* Negative SARS-CoV-2 (Negative)
[2024-05-29] MEDS: AZITHROMYCIN 250 MG TABLET 500 MG PO (18:29)
[2024-05-29] MEDS: cefTRIAXone 1 GM in 0.9 % SODIUM CHLORIDE Mini-bag 100 ML IVPB (18:33)
[2024-05-29 19:21] LABS: Lactate Sepsis w/Reflex* 2.7 mmol/L (0.5-1.9)
--- NOTE | 2024-05-29 20:14 | PM.IMHP1 ---
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 She had a undulating course of cough and shortness of breath late summer and into the fall. 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 She was last admitted here for her stroke in March. She has done quite well but still complains of some paresthesias in her dominant left upper extremity. She remains on a statin aspirin and Eliquis. Full anticoagulation was recommended given history of a DVT. Of acutely she has been sick with URI symptoms x2 weeks. She has had a right eye that has a discharge and is red. She has had a productive cough. She has been flushed with a low-grade fever but nothing greater than 100. Or no diarrhea. No chest pain or palpitations. No vomiting. Tolerating p.o. okay. She went to the clinic and given her tachycardia, clinical history she was recommended for ER evaluation. I reviewed the ED notes and interviewed the patient bedside. The patient was feeling dehydrated with a cough and last time she had symptoms like this she had pneumonia so she went in to be evaluated. She was also having oxygen saturation of 93 which is low for this patient. While at the clinic her provider noticed her heart rate was 116 and do that was concerned so she called emergency department to inform us that she was sending the patient over. When the patient arrived heart rate was improved to the 90s but did seem to move around quite a bit from the 80s to the low 100s. Her oxygen saturation for also was between 93 and 99%. The lower number was when she was talking on the phone to her daughter. Her daughter, who is a physician, states that the patient just took albuterol couple hours prior to arrival to the clinic and I could be was causing the tachycardia. The patient also was recently diagnosed with sarcoidosis. She is supposed to take feel viewed overall is feeling whenever she develops a cough for her sarcoidosis. Patient also states she has been constant upper greenish mucus. Has not noticed any fevers or chills. Denies chest pain or shortness of breath. She states she had a sore throat yesterday that has since resolved. Denies lightheadedness, dizziness. She states she always feels well. Does have a history of a previous left leg blood clot. ER COURSE: CTA, lab, antibiotics were started CODE STATUS: DNR/DNI EMERGENCY CONTACT PLAN: DannyKendal Rel To Pat Daughter Cell I've updated the PFSH, medications and allergies in the Expanse tabs. INVESTIGATIONS: LABS/MICRO/ECG/IMAGING Mildly febrile 99.2-100.4 Hypertensive 160/82, 145/77, 123/67 Respiratory rate 18 Pulse ox high 80s and low 90s 59.137 kg I have reviewed her labs from ER visit Elevated white blood cell count at 13.8, mild anemia at 11.5. Normal platelets. D-dimer 3.3 Normal creatinine and electrolytes. Blood glucose 127. Lactate has been increasing since arrival 2.2-2.7. Negative respiratory screen POC troponin 0 CTA IMPRESSION: 1. No pulmonary emboli 2. Left perihilar soft thickening with extension into the left upper lobe with dense airspace consolidation. Related findings could be to pneumonia with possibly reactive lymph nodes versus malignancy. Recommend short interval follow-up with repeat imaging in 2 months. 3. Mild perihilar ground-glass opacities could be related to pulmonary edema or other infectious inflammatory etiologies. REVIEW OF SYSTEMS: 12-point ROS completed with patient and negative unless otherwise stated in HPI or below. PHYSICAL EXAM: CONSTITUTIONAL: Conversive, good historian. A/O. Knows setting and context. GENERAL: Well-developed and in no respiratory distress. VITAL SIGNS: see record. HEENT: Sclerae are anicteric. No petechiae. Periorbital, right, mild edema. Discharge in the lacrimal duct region. Mild injection. CARDIAC: rhythm is regular but tachycardic. There is no S3 or rub. No harsh murmurs. Extremities show trace edema with symmetrical pulses. PULM: Adequate air entry with no wheeze. NEURO: Speech is fluent. A brief neurologic exam is negative. SKIN: No rashes, petechiae, concerning changes PSYCHIATRIC: Euthymic. ADMIT TO MEDR: FLOOR CARE DVT: Continue Lovenox GI: PO intake Time spent: Today I spent 75 minutes seeing the patient, discussing the patient with ER staff, reviewing Expanse and EPIC notes/diagnostics, discussing the care plan with our care time that includes social work, PT/OT, pharmacy, RT, intermediate and documenting my impressions and plan in the medical record. MEDICAL NECESSITY FOR HOSPITALIZATION Anticipated midnights in the hospital: 2 Admitting diagnosis: Complicated bronchiectasis in the setting of known sarcoidosis, severe sepsis Risk of morbidity and mortality: high Acuity is characterized as high and reflected in: Elevated lactate, elevated white blood cell count, elevated heart rate, recent history of CVA, age 88, lives alone. This patient will require hospital services as outlined in the assessment and plan in order to stabilize and be safely discharged to a lower level of care. Because of the risk and acuity as described above, this patient cannot be managed at a lower level of care. LENGTH OF STAY: 2 INPATIENT ? 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 ?I63.411 - Cerebral infarction due to embolism of right middle cerebral artery (ICD-10) Hypertension ?I10 - Essential (primary) hypertension (ICD-10) Obstructive sleep apnea ?G47.33 - Obstructive sleep apnea (adult) (pediatric) (ICD-10) Coronary artery disease ?I25.10 - Atherosclerotic heart disease of [place] coronary artery without angina pectoris (ICD-10) Mitral regurgitation ?I34.0 - Nonrheumatic mitral (valve) insufficiency (ICD-10) Breast cancer ?C50.919 - Malignant neoplasm of unspecified site of unspecified female breast (ICD-10) Bronchiectasis ?J47.9 - Bronchiectasis, uncomplicated (ICD-10) Chronic anticoagulation ?Z79.01 - residential (current) use of anticoagulants (ICD-10) Hyperlipidemia ?E78.5 - Hyperlipidemia, unspecified (ICD-10) Surgical History History of total abdominal hysterectomy and bilateral salpingo-oophorectomy ?Z90.710 - Acquired absence of both cervix and uterus (ICD-10) ?Z90.722 - Acquired absence of ovaries, bilateral (ICD-10) ?Z90.79 - Acquired absence of other genital organ(s) (ICD-10) History of cholecystectomy ?Z90.49 - Acquired absence of other specified parts of digestive tract (ICD-10) History of bladder repair surgery ?Z98.890 - Other specified postprocedural states (ICD-10) History of appendectomy ?Z90.49 - Acquired absence of other specified parts of digestive tract (ICD-10) H/O mastectomy ?Z90.10 - Acquired absence of unspecified breast and nipple (ICD-10) Family History Mother Bright's disease Father Heart disease Social History Narrative: She lives in [place]. She lives independently. She indicates that her 2 daughters, Sandie and Kendal and her son Sanjeev would be healthcare power of tax attorney. Code status is DNR. She does not smoke. She drinks alcohol about once a week What is your current living situation?: I presently have a place to live Problems where you live: no known problems Problems where you live details: NA In the past 12 months, utilities in danger of being shut off: no In the past 12 mos, have been you worried that your food would run out before you had money to buy more?: never true In the past 12 mos, the food you bought just didn't last and you didn't have money to buy more?: never true Highest level of school completed/degree received: Master's degree Smoking Status: Never smoker Do you use any of these nicotine containing products: None Second hand tobacco smoke exposure: No How often do you have a drink containing alcohol: monthly or less How often do you have six or more drinks on one occasion: Never AUDIT-C Alcohol total score: 1 Non-prescribed substance use: denies use Caffeine: No How often does anyone, including family, friends and others, physically hurt you: never How often does anyone, including family, friends and others, insult or talk down to you: never How often does anyone, including family, friends and others, threaten you with harm: never How often does anyone, including family, friends and others, scream or curse at you: never service: No Meds Home Medications and Allergies Home Medications ?Medication ?Instructions ?Recorded ?Confirmed ?Type apixaban 5 mg tablet (Eliquis) 5 mg PO BID 02/23/22 05/29/24 History atorvastatin 40 mg tablet 40 mg PO DAILY 02/23/22 05/29/24 History hydrochlorothiazide 12.5 mg tablet 12.5 mg PO DAILY 02/23/22 05/29/24 History metoprolol tartrate 50 mg tablet 25 mg PO BID 02/23/22 05/29/24 History Calcium + Vitamin D 1 tab PO BID 03/25/24 05/29/24 History albuterol sulfate 2.5 mg/3 mL 2.5 mg inhalation Q6H PRN 03/25/24 05/29/24 History (0.083 %) solution for nebulization carboxymethylcellulose sodium 1 % 1 drp ophthalmic (eye) Q1H PRN 03/25/24 05/29/24 History eye liquid gel drops sodium chloride 10 % for ml inhalation PRN 03/25/24 History nebulization triamcinolone acetonide 0.1 % 1 applic topical BID PRN 03/25/24 03/25/24 History topical cream zinc sulfate 50 mg zinc (220 mg) 50 mg PO DAILY 03/25/24 05/29/24 History capsule Allergies Allergy/AdvReac Type Severity Reaction Status Date / Time penicillin G Allergy Unknown Verified 05/29/24 15:29 Sulfa (Sulfonamide Allergy Unknown Verified 05/29/24 15:29 Antibiotics) Exam Const: Vital Signs, click to edit/add: Vital Signs - 24 hr 05/29/24 15:23 05/29/24 15:37 05/29/24 15:45 Temperature 100.4 F H Pulse Rate 100 114 H Pulse Rate [Left P ulse Oximeter] 99 Respiratory Rate 18 Blood Pressure Blood Pressure [Ri ght Upper Arm] 153/91 H Pulse Oximetry 99 97 89 Oxygen Delivery Me thod Room Air 05/29/24 16:00 05/29/24 16:05 05/29/24 16:15 Temperature 99.7 F H Pulse Rate 105 H 119 H Pulse Rate [Left P ulse Oximeter] Respiratory Rate Blood Pressure Blood Pressure [Ri ght Upper Arm] Pulse Oximetry 99 96 Oxygen Delivery Me thod 05/29/24 16:30 05/29/24 16:50 05/29/24 17:00 Temperature Pulse Rate 118 H 110 H 111 H Pulse Rate [Left P ulse Oximeter] Respiratory Rate Blood Pressure Blood Pressure [Ri ght Upper Arm] Pulse Oximetry 96 97 99 Oxygen Delivery Me thod 05/29/24 17:33 05/29/24 17:34 05/29/24 17:36 Temperature 99.2 F Pulse Rate 112 H 109 H Pulse Rate [Left P ulse Oximeter] 107 H Respiratory Rate 18 Blood Pressure 160/82 H Blood Pressure [Ri ght Upper Arm] 160/82 H Pulse Oximetry 97 97 85 L Oxygen Delivery Me od Room Air 05/29/24 17:45 05/29/24 18:00 05/29/24 18:39 Temperature Pulse Rate 107 H 103 H 107 H Pulse Rate [Left P ulse Oximeter] Respiratory Rate Blood Pressure Blood Pressure [Ri ght Upper Arm] Pulse Oximetry 94 96 91 Oxygen Delivery Me thod 05/29/24 18:45 05/29/24 19:00 05/29/24 19:05 Temperature 98.7 F Pulse Rate 115 H 100 Pulse Rate [Left P ulse Oximeter] 105 H Respiratory Rate 18 Blood Pressure Blood Pressure [Ri ght Upper Arm] 123/67 Pulse Oximetry 96 89 96 Oxygen Delivery Me od Room Air 05/29/24 19:06 05/29/24 19:17 Temperature Pulse Rate 107 H 101 H Pulse Rate [Left P ulse Oximeter] Respiratory Rate Blood Pressure 123/67 Blood Pressure [Ri ght Upper Arm] Pulse Oximetry 89 100 Oxygen Delivery Me od Hospitalist - H&P: Result Labs Labs: Short CBC 05/29/24 Range/Units 16:14 WBC 13.86 H (4.50-11.00) K/uL Hgb 11.5 L (12.0-16.0) gm/dL Hct 35.8 (33.0-51.0) % Plt Count 309 (140-440) K/uL BMP 05/29/24 16:14 Sodium 138 Potassium 4.1 Chloride 100 Carbon Dioxide 30 BUN 18 Creatinine 0.8 Glucose 127 H Calcium 10.7 H Assessment and Plan Assessment and plan (1) Severe sepsis: Problem comment: Elevated lactate, heart rate, white blood cell count, lobar pneumonia meet criteria for severe sepsis. Blood cultures were not drawn in the ED Status: Acute (2) Bronchiectasis with acute lower respiratory infection: Problem comment: Covering with an anti pseudomonal, cefepime. There is a penicillin allergy. Continue oral azithromycin Checking for strep pneumo and Legionella antigens. Giving fluids to bring down heart rate and lactate Sputum sample, hypertonic nebs, respiratory therapy consult OT and PT Recommend radiology compare previous CT to last night's CT. Dense chronic changes related to sarcoidosis may alter read from last night. Status: Acute (3) Pulmonary sarcoidosis: Problem comment: -reviewed pulm note dated 03/22/24; Dr. Marie. Recommended albuterol nebs, hypertonic saline with illness, low threshold to treat for a bronchiectasis with pseudomonas coverage. Status: Acute (4) Chronic anticoagulation: Problem comment: On apixaban for recent CVA, suspected but not confirmed atrial fibrillation and remote history of DVT Status: Acute (5) History of CVA (cerebrovascular accident): Problem comment: 03/24/24 with symptoms of transient speech difficulty, left arm heaviness and difficulty with writing (she is left handed). -multiple foci of diffusion restriction consistent with acute and subacute infarcts noted in the right superior frontal and parietal lobes by MRI -aspirin, Eliquis, statin. She has completed OT and PT outpatient. Status: Acute (6) History of DVT (deep vein thrombosis): Problem comment: years ago; provoked by travel Neuro recommended continuing lifelong Eliquis given her history of TIAs stroke and DVT. Status: Acute (7) Hyperlipidemia: Problem comment: - continue atorvastatin Status: Chronic (8) Hypertension: Problem comment: -hydrochlorothiazide, metoprolol Status: Acute
[2024-05-29 21:31] LABS: Lactate Sepsis 2 Hour 1.5 mmol/L (0.5-1.9)
[2024-05-29 21:43] LABS: PCO2 VBG 46 mmHG (40-50); pH VBG 7.406 (7.32-7.43)
[2024-05-29 21:44] LABS: HCO3 VBG 29 mmol/L (21-28); PO2 VBG < 30.1 mmHG (25-47)
[2024-05-29 21:52] LABS: C Reactive Protein* 18.4 mg/dL (0.5-1.0); Procalcitonin* 0.32 ng/mL (<0.50)
[2024-05-29] MEDS: APIXABAN 5 MG TABLET PO (21:58)
[2024-05-29] MEDS: METOPROLOL TARTRATE 50 MG TABLET 25 MG PO (21:58)
[2024-05-29] MEDS: 0.9 % SODIUM CHLORIDE 1000 ml 1,000 ML 75 ML IV (21:59)
[2024-05-29] MEDS: SODIUM CHLORIDE 0.9 % (FLUSH) 10 ML SYRINGE 5 ML IVF (22:00)
[2024-05-29 22:54] LABS: Appearance Urine Clear (Clear); Bilirubin Urine Negative (Negative); Blood Urine 1+ (Negative); Color Urine Yellow (Yellow); Glucose Urine Negative (Negative); Ketones Urine 1+ (Negative); Leukocyte Esterase Urine Negative (Negative); Nitrite Urine Negative (Negative); Protein Urine 1+ (Negative); Specific Gravity Urine 1.015 (1.000-1.030); Urobilinogen Urine 0.2 (0.2-1.0); pH Urine 5.5 (5.0-8.5)
[2024-05-29 23:05] LABS: Bacteria Urine Few; Squamous Epithelial Cell Urine Moderate (None-Few)
[2024-05-29 23:08] LABS: Legionella pneumo Ag Urine L. pneumo Negative (Negative); S pneumo Ag Urine S. pneumo Negative (Negative)
[2024-05-29] MEDS: CEFEPIME HCL 1 GM in 0.9 % SODIUM CHLORIDE Mini-bag 100 ML IVPB (23:46)
[2024-05-30] VITALS (11 sets, daily range): BP systolic 105–131; BP diastolic 53–74; PULSE 82–96; RESP 18; TEMP 36.6–37.2; O2SAT 92–99
[2024-05-30] MEDS: ACETAMINOPHEN 325 MG TABLET PO ×4 (02:36→20:41)
--- NOTE | 2024-05-30 06:31 | PC.NURSE ---
Pt alert, oriented and vitally stable, though tachycardic. Tele sinus tach.?Pain on left side of neck, pt states it increases with turning head to a 7/10, though when still it is 0-3/10. Prn Tylenol given, pt stated improvement. Pt up SBA with cane, tolerates well. Right eye red and swollen, pt states discharge coming from eye. Pt has productive cough and was able to collect sputum sample. Pt appears to be resting, call light within reach.?
[2024-05-30 06:57] LABS: HCO3 VBG 27 mmol/L (21-28); Lactate* 0.7 mmol/L (0.5-1.9); PCO2 VBG 42 mmHG (40-50); PO2 VBG 50.7 mmHG (25-47); pH VBG 7.408 (7.32-7.43)
[2024-05-30 07:08] LABS: Hematocrit 29.3 % (33.0-51.0); Hemoglobin* 9.5 gm/dL (12.0-16.0); Mean Corpuscular HGB Conc 32 gm/dL (32-36); Mean Corpuscular Hemoglobin 30 pg (26-34); Mean Corpuscular Volume 94 fL (80-100); Platelet Count* 237 K/uL (140-440); Red Blood Count 3.12 m/uL (4.00-5.20); White Blood Count* 11.28 K/uL (4.50-11.00)
[2024-05-30 07:14] LABS: Slide Review Reflex No
[2024-05-30 07:29] LABS: Chloride* 106 mmol/L (96-114); Potassium* 3.6 mmol/L (3.6-5.1); Sodium* 137 mmol/L (135-149)
[2024-05-30 07:31] LABS: Creatinine* 0.6 mg/dL (0.5-1.5); Est. Creatinine Clearance* 32.79; Estimated Glomerular Filt Rate 87 ml/min
[2024-05-30 07:32] LABS: Anion Gap 6 mEq/L (7-15); Blood Urea Nitrogen* 14 mg/dL (7-30); Carbon Dioxide* 25 mmol/L (20-32)
[2024-05-30 07:33] LABS: Calcium* 8.4 mg/dL (8.4-10.6); Glucose* 100 mg/dL (60-115)
[2024-05-30] MEDS: CEFEPIME HCL 1 GM in 0.9 % SODIUM CHLORIDE Mini-bag 100 ML IVPB ×3 (07:50→23:04)
[2024-05-30 07:51] LABS: C Reactive Protein* 16.3 mg/dL (0.5-1.0)
--- NOTE | 2024-05-30 08:20 | PM.IMPN1 ---
Progress Note: A&P Assessment and plan (1) Severe sepsis: Problem details: Elevated lactate, heart rate, white blood cell count, lobar pneumonia meet criteria for severe sepsis Blood cultures were not drawn in the ED 05/30 WBC and CRP trending down, lactate normalized. Last fever > 12 hours ago. UC and sputum culture pending. Clinically improving Status: Acute (2) Bronchiectasis with acute lower respiratory infection: Problem details: Covering with an anti pseudomonal, cefepime. There is a penicillin allergy. Continue oral azithromycin Checking for strep pneumo and Legionella antigens - negative Giving fluids to bring down heart rate and lactate - maintenance 75 mL Sputum sample - g stain unremarkable, culture pending, hypertonic nebs - p.r.n., respiratory therapy following OT and PT VBG stable CT shows Left perihilar soft thickening with extension into the left upper lobe with dense airspace consolidation. Related findings could be to pneumonia with possibly reactive lymph nodes versus malignancy - Dr. Meza to overread and compare with previous - pending Recommend short interval follow-up with PCP with repeat imaging in 2 months Status: Acute (3) Pulmonary sarcoidosis: Problem details: -reviewed pulm note dated 03/22/24; Dr. Marie. Recommended albuterol nebs, hypertonic saline with illness, low threshold to treat for a bronchiectasis with pseudomonas coverage Status: Acute (4) Chronic anticoagulation: Problem details: On apixaban for recent CVA, suspected but not confirmed atrial fibrillation and remote history of DVT Status: Acute (5) History of CVA (cerebrovascular accident): Problem details: 03/24/24 with symptoms of transient speech difficulty, left arm heaviness and difficulty with writing (she is left handed). -multiple foci of diffusion restriction consistent with acute and subacute infarcts noted in the right superior frontal and parietal lobes by MRI -aspirin, Eliquis, statin. She has completed OT and PT outpatient Status: Acute (6) History of DVT (deep vein thrombosis): Problem details: years ago; provoked by travel Neuro recommended continuing lifelong Eliquis given her history of TIAs stroke and DVT. Status: Acute (7) Hyperlipidemia: Problem details: - continue atorvastatin Status: Chronic (8) Hypertension: Problem details: -hydrochlorothiazide, metoprolol Status: Acute (9) Conjunctivitis: Problem details: -tobramycin ophthalmic drops t.i.d. x5 days. Monitor Status: Acute Plan Continue IV antibiotics, last fever just over 12 hours ago. Possible discharge tomorrow if not 1-2 days pending ongoing clinical improvement, trending labs. Discussed with daughter Time Spent With Patient Total time spent: Total time spent caring for the patient today was 45 minutes. This includes time spent for the visit reviewing the chart, time spent during the visit, time spent after the visit and documentation and planning in coordination of care. Subjective Date Seen: 05/30/24 Interval history: Seen sitting up in a chair this morning, her daughter, a preboarder, is on speaker phone. Patient reports feeling better this morning. She admits that she did not get good sleep but was able to rest. Denies headache. Has some left-sided neck pain, indicates along her trapezius, worse with rotation. Tylenol helps with this. Denies chest pain or shortness of breath. Not requiring oxygen supplementation. Last fever was 100.4? at 1700p.m. last night. Tolerating orals without nausea vomiting. Reports purulent drainage and crusting from right eye since yesterday. No vision changes. WBC trending down. CRP trending down. Lactate normalized. Sputum culture collected, pending, Gram stain unremarkable. UC pending. Radiologist review of yesterday's CT with previous CT pending. Exam Narrative: Exam Narrative: PHYSICAL EXAM General: Pleasant, conversant, NAD HEENT: Normocephalic, atraumatic, right lid mildly erythematous with mild swelling, dry crusting noted at lids. Cardiovascular: RRR, S1S2. No pitting edema Pulmonary: CTA bilaterally without rhonchi, rales, expiratory wheezes. No dyspnea on room air Neurological: Alert, answering questions appropriately, cranial nerves intact, no focal findings Extremities: No gross joint deformity or swelling. AROMI. Neurovascularly intact Skin: Warm, dry. Const: Vital Signs, click to edit/add: Vital Signs - 24 hr 05/29/24 15:23 05/29/24 15:37 05/29/24 15:45 Temperature 100.4 F H Pulse Rate 100 114 H Pulse Rate [Left P ulse Oximeter] 99 Pulse Rate [Right Pulse Oximeter] Respiratory Rate 18 Blood Pressure Blood Pressure [Ri ght Arm] Blood Pressure [Ri ght Upper Arm] 153/91 H Pulse Oximetry 99 97 89 Oxygen Delivery Me thod Room Air 12/17/24 16:00 05/29/24 16:05 05/29/24 16:15 Temperature 99.7 F H Pulse Rate 105 H 119 H Pulse Rate [Left P ulse Oximeter] Pulse Rate [Right Pulse Oximeter] Respiratory Rate Blood Pressure Blood Pressure [Ri ght Arm] Blood Pressure [Ri ght Upper Arm] Pulse Oximetry 99 96 Oxygen Delivery Me thod 05/29/24 16:30 05/29/24 16:50 05/29/24 17:00 Temperature Pulse Rate 118 H 110 H 111 H Pulse Rate [Left P ulse Oximeter] Pulse Rate [Right Pulse Oximeter] Respiratory Rate Blood Pressure Blood Pressure [Ri ght Arm] Blood Pressure [Ri ght Upper Arm] Pulse Oximetry 96 97 99 Oxygen Delivery Me thod 05/29/24 17:33 05/29/24 17:34 05/29/24 17:36 Temperature 99.2 F Pulse Rate 112 H 109 H Pulse Rate [Left P ulse Oximeter] 107 H Pulse Rate [Right Pulse Oximeter] Respiratory Rate 18 Blood Pressure 160/82 H Blood Pressure [Ri ght Arm] Blood Pressure [Ri ght Upper Arm] 160/82 H Pulse Oximetry 97 97 85 L Oxygen Delivery Me thod Room Air 05/29/24 17:45 05/29/24 18:00 05/29/24 18:39 Temperature Pulse Rate 107 H 103 H 107 H Pulse Rate [Left P ulse Oximeter] Pulse Rate [Right Pulse Oximeter] Respiratory Rate Blood Pressure Blood Pressure [Ri ght Arm] Blood Pressure [Ri ght Upper Arm] Pulse Oximetry 94 96 91 Oxygen Delivery Me thod 05/29/24 18:45 05/29/24 19:00 05/29/24 19:05 Temperature 98.7 F Pulse Rate 115 H 100 Pulse Rate [Left P ulse Oximeter] 105 H Pulse Rate [Right Pulse Oximeter] Respiratory Rate 18 Blood Pressure Blood Pressure [Ri ght Arm] Blood Pressure [Ri ght Upper Arm] 123/67 Pulse Oximetry 96 89 96 Oxygen Delivery Me od Room Air 05/29/24 19:06 05/29/24 19:17 05/29/24 19:58 Temperature Pulse Rate 107 H 101 H Pulse Rate [Left P ulse Oximeter] Pulse Rate [Right Pulse Oximeter] Respiratory Rate 18 Blood Pressure 123/67 Blood Pressure [Ri ght Arm] Blood Pressure [Ri ght Upper Arm] Pulse Oximetry 89 100 94 Oxygen Delivery Me thod Room Air 05/29/24 20:13 05/29/24 21:14 05/29/24 22:33 Temperature 98.5 F Pulse Rate Pulse Rate [Left P ulse Oximeter] Pulse Rate [Right Pulse Oximeter] 108 H Respiratory Rate 18 18 Blood Pressure Blood Pressure [Ri ght Arm] 145/77 H Blood Pressure [Ri ght Upper Arm] Pulse Oximetry 94 94 93 Oxygen Delivery Me thod Room Air Room Air 05/29/24 23:00 05/29/24 23:00 05/29/24 23:22 Temperature 99.1 F Pulse Rate 100 Pulse Rate [Left P ulse Oximeter] Pulse Rate [Right Pulse Oximeter] 104 H 104 H Respiratory Rate 18 18 Blood Pressure Blood Pressure [Ri ght Arm] 114/54 L Blood Pressure [Ri ght Upper Arm] Pulse Oximetry 94 Oxygen Delivery Me thod Room Air 05/30/24 03:00 Temperature 99.0 F Pulse Rate Pulse Rate [Left P ulse Oximeter] Pulse Rate [Right Pulse Oximeter] 95 Respiratory Rate 18 Blood Pressure Blood Pressure [Ri ght Arm] 115/55 L Blood Pressure [Ri ght Upper Arm] Pulse Oximetry 92 Oxygen Delivery Me thod Room Air Labs Labs: Laboratory Results - last 24 hr 05/29/24 05/29/24 05/29/24 16:14 16:36 16:49 WBC 13.86 H RBC 3.83 L Hgb 11.5 L Hct 35.8 MCV 94 MCH 30 MCHC 32 RDW Coeff of Barb 13.3 Plt Count 309 Neut % (Auto) 67.2 Lymph % (Auto) 15.7 L [place] % (Auto) 12.0 H Eos % (Auto) 4.8 Baso % (Auto) 0.2 Neut # (Auto) 9.30 H Lymph # (Auto) 2.20 [place] # (Auto) 1.70 H Eos # (Auto) 0.70 H Baso # (Auto) 0.00 Abs Immat Gran (auto) 0.00 Imm/Tot Granulo (auto) 0.1 D-Dimer Quant (PE/DVT) 3.23 H VBG pH VBG pCO2 VBG pO2 VBG HCO3 Sodium 138 Potassium 4.1 Chloride 100 Carbon Dioxide 30 Anion Gap 8 BUN 18 Creatinine 0.8 Estimated Creat Clear 32.79 Estimated GFR 71 Glucose 127 H Lactate 2.2 H Calcium 10.7 H C-Reactive Protein 18.4 H Procalcitonin 0.32 Urine Color Urine Appearance Urine pH Ur Specific [place] Urine Protein Urine Glucose (UA) Urine Ketones Urine Blood Urine Nitrite Urine Bilirubin Urine Urobilinogen Ur Leukocyte Esterase Urine RBC Urine WBC Ur Squamous Epith Cells Urine Bacteria Urine L. pneumophilia Ag Urine Strep pneumoniae Ag SARS-CoV-2 (PCR) Negative SARS-CoV-2 Influenza Type A (PCR) Negative PCR FLU A Influenza Type B (PCR) Negative PCR FLU B RSV (PCR) Negative PCR RSV Lab Acknowledgement New Spec Needed POC Troponin I 0.00 L 05/29/24 05/29/24 05/29/24 19:19 20:45 21:14 WBC RBC Hgb Hct MCV MCH MCHC RDW Coeff of Barb Plt Count Neut % (Auto) Lymph % (Auto) [place] % (Auto) Eos % (Auto) Baso % (Auto) Neut # (Auto) Lymph # (Auto) [place] # (Auto) Eos # (Auto) Baso # (Auto) Abs Immat Gran (auto) Imm/Tot Granulo (auto) D-Dimer Quant (PE/DVT) VBG pH VBG pCO2 VBG pO2 VBG HCO3 Sodium Potassium Chloride Carbon Dioxide Anion Gap BUN Creatinine Estimated Creat Clear Estimated GFR Glucose Lactate 2.7 H Calcium C-Reactive Protein Procalcitonin Urine Color Urine Appearance Urine pH Ur Specific [place] Urine Protein Urine Glucose (UA) Urine Ketones Urine Blood Urine Nitrite Urine Bilirubin Urine Urobilinogen Ur Leukocyte Esterase Urine RBC Urine WBC Ur Squamous Epith Cells Urine Bacteria Urine L. pneumophilia Ag Urine Strep pneumoniae Ag SARS-CoV-2 (PCR) Influenza Type A (PCR) Influenza Type B (PCR) RSV (PCR) Lab Acknowledgement Test Added Test Added POC Troponin I 05/29/24 05/29/24 05/30/24 21:28 22:47 06:15 WBC 11.28 H RBC 3.12 L Hgb 9.5 L Hct 29.3 L MCV 94 MCH 30 MCHC 32 RDW Coeff of Barb Plt Count 237 Neut % (Auto) Lymph % (Auto) [place] % (Auto) Eos % (Auto) Baso % (Auto) Neut # (Auto) Lymph # (Auto) [place] # (Auto) Eos # (Auto) Baso # (Auto) Abs Immat Gran (auto) Imm/Tot Granulo (auto) D-Dimer Quant (PE/DVT) VBG pH 7.406 7.408 VBG pCO2 46 42 VBG pO2 < 30.1 50.7 H VBG HCO3 29 H 27 Sodium 137 Potassium 3.6 Chloride 106 Carbon Dioxide 25 Anion Gap 6 L BUN 14 Creatinine 0.6 Estimated Creat Clear 32.79 Estimated GFR 87 Glucose 100 Lactate 1.5 0.7 Calcium 8.4 C-Reactive Protein 16.3 H Procalcitonin 0.30 Urine Color Yellow Urine Appearance Clear Urine pH 5.5 Ur Specific [place] 1.015 Urine Protein 1+ A Urine Glucose (UA) Negative Urine Ketones 1+ A Urine Blood 1+ A Urine Nitrite Negative Urine Bilirubin Negative Urine Urobilinogen 0.2 Ur Leukocyte Esterase Negative Urine RBC 5-10 A Urine WBC 5-10 A Ur Squamous Epith Cells Moderate A Urine Bacteria Few A Urine L. pneumophilia Ag L. pneumo Negative Urine Strep pneumoniae Ag S. pneumo Negative SARS-CoV-2 (PCR) Influenza Type A (PCR) Influenza Type B (PCR) RSV (PCR) Lab Acknowledgement POC Troponin I
[2024-05-30] MEDS: hydroCHLOROthiazide 12.5 MG CAPSULE PO (08:59)
[2024-05-30] MEDS: APIXABAN 5 MG TABLET PO ×2 (09:00→20:41)
[2024-05-30] MEDS: AZITHROMYCIN 250 MG TABLET PO (09:00)
[2024-05-30] MEDS: METOPROLOL TARTRATE 50 MG TABLET 25 MG PO ×2 (09:00→20:40)
--- NOTE | 2024-05-30 09:10 | RESP.RT ---
Patient sitting up in chair, appears comfortable, breathing regular/easy, on room air with SaO2 96%. BBS with SHLOMO and RLL very slightly diminished over Clear SHLOMO and RUL, no wheezes or Rhonchi noted. Patient has a good to excellent non-productive moist cough, able to clear secretions when present. IS with patient, excellent inhalation with disc in middle and 1500 on scale. Patient has Albuterol MDI for home use. Extension given to patient with information on use, patient verbal states she understands. Will continue to follow.
[2024-05-30] MEDS: ASPIRIN 81 MG TABLET EC PO (11:50)
[2024-05-30] MEDS: guaiFENesin 600 MG TAB.ER.12H PO ×2 (11:50→20:40)
[2024-05-30] MEDS: CIPROFLOXACIN 0.3% OPHTH 1 DROP EYE-RIGHT ×2 (14:10→20:42)
--- NOTE | 2024-05-30 18:55 | PC.NURSE ---
Afebrile. Productive cough with green sputum. O2 sats 94-95%RA. up with SBA and walker ambulating in hallway. Received Tylenol for left neck pain. Right eye reddened and MD aware; eye drops started per MD order. Denies N/V.
[2024-05-30] MEDS: ATORVASTATIN CALCIUM 40 MG TABLET PO (20:40)
[2024-05-30] MEDS: SODIUM CHLORIDE 0.9 % (FLUSH) 10 ML SYRINGE 5 ML IVF (20:44)
[2024-05-31 02:35] VITALS: BP 121/55; PULSE 88; RESP 19; TEMP 37.1; O2SAT 93
--- NOTE | 2024-05-31 06:34 | PC.NURSE ---
Shift note ([id number]): Patient pleasant, alert and oriented. Uses call light when needing help. Ambulated to bathroom with cane, gait belt and stand by assist. Given PRN Tylenol for left neck pain rated 7/10. O2 sats 94-99% on room air while awake. O2 sats dropped during the night while asleep. Oxygen was applied at 1 LPM via NC. O2 sats 93-95% on 1LPM.?
[2024-05-31] MEDS: CEFEPIME HCL 1 GM in 0.9 % SODIUM CHLORIDE Mini-bag 100 ML IVPB (06:51)
[2024-05-31 07:12] LABS: Hematocrit 30.5 % (33.0-51.0); Mean Corpuscular HGB Conc 33 gm/dL (32-36); Mean Corpuscular Hemoglobin 30 pg (26-34); Mean Corpuscular Volume 93 fL (80-100); Platelet Count* 290 K/uL (140-440); Red Blood Count 3.29 m/uL (4.00-5.20); White Blood Count* 11.38 K/uL (4.50-11.00)
[2024-05-31 07:23] LABS: Chloride* 107 mmol/L (96-114); Potassium* 3.5 mmol/L (3.6-5.1); Sodium* 139 mmol/L (135-149)
[2024-05-31 07:25] LABS: Creatinine* 0.7 mg/dL (0.5-1.5); Est. Creatinine Clearance* 32.79; Estimated Glomerular Filt Rate 84 ml/min
[2024-05-31 07:26] LABS: Anion Gap 7 mEq/L (7-15); Blood Urea Nitrogen* 12 mg/dL (7-30); Calcium* 8.4 mg/dL (8.4-10.6); Carbon Dioxide* 25 mmol/L (20-32); Glucose* 96 mg/dL (60-115); Slide Review Reflex No
[2024-05-31 07:40] VITALS: BP 131/75; PULSE 110; PULSE 92; RESP 18; TEMP 37.1; O2SAT 94
[2024-05-31] MEDS: SODIUM CHLORIDE 0.9 % (FLUSH) 10 ML SYRINGE 5 ML IVF (08:31)
[2024-05-31] MEDS: AZITHROMYCIN 250 MG TABLET PO ×2 (08:31→08:32)
[2024-05-31] MEDS: hydroCHLOROthiazide 12.5 MG CAPSULE PO (08:32)
[2024-05-31] MEDS: guaiFENesin 600 MG TAB.ER.12H PO (08:32)
[2024-05-31] MEDS: METOPROLOL TARTRATE 50 MG TABLET 25 MG PO (08:32)
[2024-05-31] MEDS: APIXABAN 5 MG TABLET PO (08:32)
[2024-05-31] MEDS: ASPIRIN 81 MG TABLET EC PO (08:32)
[2024-05-31] MEDS: CIPROFLOXACIN 0.3% OPHTH 1 DROP EYE-RIGHT ×2 (08:35→13:57)
[2024-05-31 11:14] VITALS: BP 102/55; PULSE 82; RESP 18; TEMP 36.9; O2SAT 95
--- NOTE | 2024-05-31 13:20 | P.DS_ITS ---
DS: Providers Provider Date Seen: 05/31/24 Date of admission: 05/29/24 21:14 Primary care physician: Karson Avitia MD Admitting Clinician: Joel Goyal MD Consults: 05/29/24 21:14 Consult to Occupational Therapy [CONS] Routine Comment: Reason(s) for OT Consult:: Evaluate and Treat Any Restrictions?:: No Restrictions Consult to Physical Therapy [CONS] Routine Comment: Reason(s) for PT Consult:: Evaluate and Treat Any Restrictions?:: No Restrictions Consult to Respiratory Therapy [CONS] Routine Comment: Reason(s) for RT Consult:: Consult Consult to Drawing In Machine Tender Helper [CONS] Routine Comment: Reason for Consult:: Social Service Consult Attending Physician on discharge: Gabby Stacy MD DS: Diagnosis Discharge Diagnosis (1) Severe sepsis: Status: Resolved Problem details: Resolved Elevated lactate, heart rate, white blood cell count, lobar pneumonia meet criteria for severe sepsis Blood cultures were not drawn in the ED 05/30 WBC and CRP trending down, lactate normalized. Last fever > 12 hours ago. UC and sputum culture pending. Clinically improving 05/31: Patient the states that she is feeling well. Able to walk the hallways without shortness of breath or chest discomfort. O2 sat is 95 at rest and it goes down to 89-90 on exertion. Patient has been tolerating food. (2) Bronchiectasis with acute lower respiratory infection: Status: Acute Problem details: Covering with an anti pseudomonal, cefepime. There is a penicillin allergy. Continue oral azithromycin Checking for strep pneumo and Legionella antigens - negative Giving fluids to bring down heart rate and lactate - maintenance 75 mL Sputum sample - g stain unremarkable, culture pending, hypertonic nebs - p.r.n., respiratory therapy following OT and PT VBG stable CT shows Left perihilar soft thickening with extension into the left upper lobe with dense airspace consolidation. Related findings could be to pneumonia with possibly reactive lymph nodes versus malignancy. Comparison made to outside study from January 2024. Consolidative airspace density within the lingula extending to the left hilum is new compared to the prior study. Also new are enlarged left hilar lymph nodes. Similar nodular densities. Chronic areas of scarring in both upper lobes. Short-term follow-up CT in 2 months recommended, as before Recommend short interval follow-up with PCP with repeat imaging in 2 months Patient to complete antibiotic course with levofloxacin 750 mg daily. (3) Pulmonary sarcoidosis: Status: Acute Problem details: -reviewed pulm note dated 03/22/24; Dr. Marie. Recommended albuterol nebs, hypertonic saline with illness, low threshold to treat for a bronchiectasis with pseudomonas coverage (4) Chronic anticoagulation: Status: Acute Problem details: On apixaban for recent CVA, suspected but not confirmed atrial fibrillation and remote history of DVT (5) History of CVA (cerebrovascular accident): Status: Acute Problem details: 03/24/24 with symptoms of transient speech difficulty, left arm heaviness and difficulty with writing (she is left handed). -multiple foci of diffusion restriction consistent with acute and subacute infarcts noted in the right superior frontal and parietal lobes by MRI -aspirin, Eliquis, statin. She has completed OT and PT outpatient (6) History of DVT (deep vein thrombosis): Status: Acute Problem details: years ago; provoked by travel Neuro recommended continuing lifelong Eliquis given her history of TIAs stroke and DVT. (7) Hyperlipidemia: Status: Chronic Problem details: - continue atorvastatin (8) Hypertension: Status: Acute Problem details: -hydrochlorothiazide, metoprolol (9) Conjunctivitis: Status: Acute Problem details: -tobramycin ophthalmic drops t.i.d. x5 days. 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 Pt was admitted for PNA and sepsis. Patient was treated with IV fluids and IV antibiotics and improved immensely. Patient was able to walk without having shortness of breath or dropping her O2 sat below 89%. Chest CT was done. Comparison made to outside study from January 2024. Consolidative airspace density within the lingula extending to the left hilum is new compared to the prior study. Also new are enlarged left hilar lymph nodes. Similar nodular densities. Chronic areas of scarring in both upper lobes. Pt needs to follow-up with her PCP in 1-2 weeks. She needs to complete the antibiotic course w/ levofloxacin 750 QD. Short-term follow-up CT in 2 months is recommended. Time Spent with Patient Time attestation: Total time spent providing and/or coordinating discharge services: 50 Exam Narrative: Exam Narrative: Physical exam GENERAL: Pleasant, Comfortable, no acute distress. O2Sat 9%% on RA. HEAD AND NECK: Atraumatic, normocephalic CARDIOVASCULAR: RRR. Normal S1, S2. No murmurs. RESPIRATORY: Clear to auscultation B/L. Good air entry B/L. No wheezes or rhonchi. NEUROLOGY: Alert, awake, oriented X 3. PSYCH: Normal mood, normal affect. Const: Vital Signs, click to edit/add: Vital Signs - 24 hr 05/30/24 15:01 05/30/24 15:32 05/30/24 15:32 Temperature 98.4 F Pulse Rate 91 Pulse Rate [Right Pulse Oximeter] 87 87 Respiratory Rate 18 18 Blood Pressure [Ri ght Arm] 105/70 Pulse Oximetry 95 Oxygen Delivery Me thod Room Air 05/30/24 19:00 05/30/24 21:14 05/30/24 22:43 Temperature 98.8 F 98.4 F Pulse Rate Pulse Rate [Right Pulse Oximeter] 94 82 Respiratory Rate 18 18 Blood Pressure [Ri ght Arm] 131/74 119/61 Pulse Oximetry 99 95 94 Oxygen Delivery Me thod Room Air Room Air 05/30/24 23:00 05/31/24 02:35 05/31/24 07:40 Temperature 98.7 F Pulse Rate 96 92 Pulse Rate [Right Pulse Oximeter] 88 Respiratory Rate 19 Blood Pressure [Ri ght Arm] 121/55 L Pulse Oximetry 93 Oxygen Delivery Me thod Nasal Cannula 05/31/24 07:40 05/31/24 07:40 05/31/24 11:14 Temperature 98.7 F 98.5 F Pulse Rate Pulse Rate [Right Pulse Oximeter] 110 H 110 H 82 Respiratory Rate 18 18 18 Blood Pressure [Ri ght Arm] 131/75 102/55 L Pulse Oximetry 94 95 Oxygen Delivery Me thod Room Air Room Air DS: Data Data Completed and Pending Labs on day of discharge: Labs from last 24 hours 05/31/24 06:13 WBC 11.38 H RBC 3.29 L Hgb 10.0 L Hct 30.5 L MCV 93 MCH 30 MCHC 33 Plt Count 290 Sodium 139 Potassium 3.5 L Chloride 107 Carbon Dioxide 25 Anion Gap 7 BUN 12 Creatinine 0.7 Estimated Creat Clear 32.79 Estimated GFR 84 Glucose 96 Calcium 8.4 Preliminary micro results at discharge 05/30/24 02:45 Sputum Culture - Preliminary Sputum - Expectorated Sputum Discharge Plan Discharge Disposition: Home, Self-Care Date of Admission: 05/29/24 21:14 Attending Provider on Discharge: Gabby Stacy Primary Care Provider: Karson Avitia Condition: Stable Anticipated Discharge Date/Time: 05/31/24 12:59 Discharge Medications: New (DME) Walker- 4 Wheels Misc See Rx Instructions .Route Qty: 1 0RF Rx Instructions: as directed levofloxacin 750 mg tablet 750 mg PO Q24H Qty: 4 0RF Rx Instructions: start on 05/31/2024 Continued albuterol sulfate 2.5 mg /3 mL (0.083 %) solution for nebulization 2.5 mg inhalation Q6H PRN triamcinolone acetonide 0.1 % cream 1 applic topical BID PRN carboxymethylcellulose sodium 1 % drops, liquid gel 1 drp ophthalmic (eye) Q1H PRN zinc sulfate 50 mg zinc (220 mg) capsule 50 mg PO 2XW atorvastatin 40 mg tablet 40 mg PO DAILY Eliquis 5 mg tablet 5 mg PO BID metoprolol tartrate 50 mg tablet 25 mg PO BID hydrochlorothiazide 12.5 mg tablet 12.5 mg PO DAILY calcium carbonate-vitamin D3 [Calcium 600 + D(3)] 600 mg-10 mcg (400 unit) tablet 1 tab PO BID albuterol sulfate 90 mcg/actuation HFA aerosol inhaler 2 puff inhalation Q4H PRN (Reason: wheezing) sodium chloride 3 % solution for nebulization 4 ml inhalation Q6H PRN aspirin [Adult Aspirin Regimen] 81 mg tablet,delayed release (DR/EC) 81 mg PO DAILY Discharge Orders: Discharge Order (Routine); Ordered 05/31/24 Ordered By: Gabby Stacy Patient Education: Levofloxacin (By mouth), Pneumonia (IP) Additional Instructions: -Please follow-up with your PCP in 1-2 weeks. -please complete the antibiotic course, you need to start levofloxacin on the day of discharge May 31. -Chest CT was done. Comparison made to outside study from January 2024. Consolidative airspace density within the lingula extending to the left hilum is new compared to the prior study. Also new are enlarged left hilar lymph nodes. Similar nodular densities. Chronic areas of scarring in both upper lobes. -Short-term follow-up CT in 2 months recommended. Activity Level: Activity as Tolerated Discharge Diet: Heart Healthy (2 gm sodium, low fat) Follow Up Appointments: Karson Avitia MD [Primary Care Provider] - 06/12/24 2:30 pm ([facility] for follow-up.) Forms: [employer] Info Instructions
--- NOTE | 2024-05-31 15:02 | PC.NURSE ---
Nursing discharge: Pt has been A&O, afebrile and VSS today. No reports of pain, dizziness or nausea. Ambulated in [place]ney x3 SBA with a steady gait. O2 assessment done by nursing; pt drops to 88-89% on RA with activity with a quick recover to > 94% at rest on RA. TELE read SR with BBB. Pt had adequate U/O and tolerated regular diet with no nausea. Diminished LS in bases and intermittent moist cough. PIV removed from R. AC catheter intact. Discharge instructions were reviewed with patient and her daughter, Kendal, in the room. Her daughter, Sandie, was present via telephone. They all verbalized understanding and their questions were answered. Pt discharged via W/C at 1455 accompanied by DORENE and daughter.
== END 2024-05-31 15:00 | disposition home or self-care (01) | DRG 871 ==
LOC: ED 19:37 → MEDSURG 19:45
PROVIDERS: Physician Assistant; Admitting Provider Family Medicine; Emergency Provider Student in an Organized Health Care Education/Training Program; PCP Family Medicine; Visit Provider Orthopaedic Surgery
DX: A41.9 Sepsis, unspecified organism (principal); J18.1 Lobar pneumonia, unspecified organism; J47.0 Bronchiectasis with acute lower respiratory infection; R65.20 Severe sepsis without septic shock; D86.0 Sarcoidosis of lung; G47.33 Obstructive sleep apnea (adult) (pediatric); I10 Essential (primary) hypertension; I25.10 Atherosclerotic heart disease of native coronary artery without angina pectoris; I34.0 Nonrheumatic mitral (valve) insufficiency; Z86.718 Personal history of other venous thrombosis and embolism; Z79.01 Long term (current) use of anticoagulants; I69.328 Other speech and language deficits following cerebral infarction; I49.3 Ventricular premature depolarization; I45.10 Unspecified right bundle-branch block; I69.334 Monoplegia of upper limb following cerebral infarction affecting left non-dominant side; E78.5 Hyperlipidemia, unspecified; Z85.3 Personal history of malignant neoplasm of breast; H10.31 Unspecified acute conjunctivitis, right eye
CPT/HCPCS: 36415; 71275; 80048; 81001; 82803; 83605; 84145; 84484; 85025; 85027; 85379; 86140; 87070; 87086; 87449; 87631; 87899; 93005; 94640; 94761; 97116; 97161; 97165; 99285; A9270; J0692; J0696; J7030; Q9967

== ENCOUNTER 2024-06-12 10:00 | Outpatient (RCR) | payer MEDICARE, BC, SELFPAY | END 2024-07-30 08:35 | disposition home or self-care (01) | PROVIDERS: PCP Family Medicine; Visit Provider Family Medicine | DX: R29.898 Other symptoms and signs involving the musculoskeletal system (principal); Z51.89 Encounter for other specified aftercare | CPT/HCPCS: 97110; 97161 ==

== ENCOUNTER 2024-08-29 15:19 | Emergency (ER) | payer MEDICARE, BC, SELFPAY ==
--- OUTSIDE RECORDS SUMMARY | 2024-08-29 15:24 | XMS_ITS | Clinical Summary ---
Author Organization [facility] Address [address] [place] [address] Care Team Providers Care Division Chief Name Role Phone Ami Logan Unavailable [phone] WildaStu steiner Unavailable Karson Avitia MD Primary Care Provider + Allergies Active Allergy Reactions Criticality Noted Date Comments Penicillins Rash 10/27/2007 Sulfa (Sulfonamide Antibiotics) Rash 10/11 Medications calcium carbonate-vit D3, 600 mg-400 units, (CALTRATE PLUS 600 MG-400 UNIT TABLET) tablet Take 1 tablet by mouth 2 times daily with meals. Active zinc 50 mg tablet Take 50 mg by mouth. Twice weekly for eye health Active polyvinyl alcohol-povidone (REFRESH) 1.4-0.6 % ophthalmic solution 1 Drop every hour if needed for Dry Eyes. Active acetaminophen (TYLENOL EXTRA STRENGTH) 500 mg tablet Take 500-1,000 mg by mouth every 6 hours if needed. Max acetaminophen dose: 4000mg in 24 hrs. Active medication order composerIndicatio ns:Primary cancer of left breast (HC) Mastectomy Bras and Prosthesis diagnosis breast cancer - 3 Each 2 01/31/20 21 Active triamcinolone (ARISTOCORT; KENALOG) 0.1 % creamIndications: Nummular dermatitis Apply topically to affected area(s) two times daily. Apply topically to affected area twice daily for up to 3 weeks maximum. 453.6 g 1 11/24/19 Active albuterol 0.083% (2.5 mg/3 mL) neb solution Inhale 2.5 mg by mouth. 03/22/20 Active albuterol HFA (PRO-AIR; VENTOLIN; PROVENTIL) 90 mcg/actuation inhaler Inhale by mouth. 03/24/20 Active sodium chloride 3% nebulization 3 % nebulizer solution Inhale 4 mL by mouth. 03/22/20 Active aspirin chewable 81 mg chewable tablet Chew 81 mg by mouth once every other day. Active Breast ProsthesisIndicat ions:Primary cancer of left breast (HC),H/O left mastectomy For personal use. Left breast ICD-10 Codes: Z90.12 and C50.912 fax to [phone] 3 Each 3 07/10/19 25 Active Post Mastectomy BraIndications:Pr imary cancer of left breast (HC) For personal use. 3 Packet 3 08/07/19 25 Active metoprolol tartrate (LOPRESSOR) 50 mg tabletIndications :Ventricular tachycardia (HC) Take 0.5 Tablets (25 mg) by mouth two times daily. 90 Tablet 3 08/22/19 25 Active hydroCHLOROthiazi de 12.5 mg tabletIndications :Edema of left lower extremity Take 1 Tablet (12.5 mg) by mouth once daily. 90 Tablet 08/22/19 25 Active atorvastatin (LIPITOR) 40 mg tabletIndications :Hyperlipidemia, unspecified hyperlipidemia type Take 1 Tablet (40 mg) by mouth once daily. 90 Tablet 08/22/19 25 Active apixaban (Eliquis) 5 mg tabletIndications :Acute ischemic stroke (HC) Take 1 Tablet (5 mg) by mouth two times daily. 180 Tablet 3 08/22/19 25 Active hydroCHLOROthiazi de 12.5 mg tabletIndications :Edema of left lower extremity Take 1 Tablet (12.5 mg) by mouth once daily. 90 Tablet 3 06/14/19 24 025 Discontin ued(Reord er (E-cancel not sent)) apixaban (Eliquis) 5 mg tabletIndications :Acute ischemic stroke (HC) Take 1 Tablet (5 mg) by mouth two times daily. 180 Tablet 3 06/14/19 24 025 Discontin ued(Reord er (E-cancel not sent)) Post Mastectomy BraIndications:Pr imary cancer of left breast (HC) For personal use. 3 Packet 3 06/14/19 24 025 Discontin ued(Reord er (E-cancel not sent)) metoprolol tartrate (LOPRESSOR) 50 mg tabletIndications :Ventricular tachycardia (HC) Take 0.5 Tablets (25 mg) by mouth two times daily. 60 Tablet 06/28/19 25 025 Discontin ued(Reord er (E-cancel not sent)) atorvastatin (LIPITOR) 40 mg tabletIndications :Hyperlipidemia, unspecified hyperlipidemia type Take 1 Tablet (40 mg) by mouth once daily. 90 Tablet 2 07/25/19 25 025 Discontin ued(Reord er (E-cancel not sent)) Post Mastectomy BraIndications:Pr imary cancer of left breast (HC) For personal use. 3 Packet 3 08/07/19 25 025 Discontin ued(*Avai lability/ Formulary change/Co st of medicatio n) Active Problems Problem Noted Date Diagnosed Date Non-occlusive coronary artery disease 03/08/2024 Acute ischemic stroke 07/03/2018 Left hand weakness 07/03/2018 Mitral regurgitation 02/17/2017 Cerebral infarction 05/06/2015 Anemia, unspecified 09/27/2014 Overview (09/27/2014): EGD 09/2014 normal Osteopenia 03/04/2014 REJI 11/11/2008 AHI-12 04/21/2009 Rosacea 10/28/2008 Disorder of bone and cartilage, unspecified 10/11 Other and unspecified hyperlipidemia 10/27/2007 Cryptogenic stroke Resolved Problems Problem Noted Date Diagnosed Date Resolved Date Pulmonary fibrosis, unspecified 04/16/2020 06/14/2023 SVT (supraventricular tachycardia) 12/16/2015 07/28/2021 NSVT (nonsustained ventricular tachycardia) 12/16/2015 07/28/2021 Malignant neoplasm of other specified sites of female breast 10/27/2007 07/28/2021 Encounters Date Type Department Care Team Description 08/29/2024 Travel 08/21/2024 2:45 PM CDT Ancillary Procedure [address] [place] [address] 08/21/2024 1:40 PM CDT Office Visit [facility] [address] [place] [address] Karson Avitia MD Medicare ANNUAL (subsequent) Visit (88 year old female); Results (CT) 08/21/2024 Travel 08/16/2024 Travel 08/13/2024 1:30 PM PATIENT SERVICE ASSOCIATE Ancillary Procedure [facility] [address] [place] [address] 08/13/2024 1:15 PM PATIENT SERVICE ASSOCIATE Orders Only [address] [place] [address] Lab, [facility] 08/13/2024 Travel 08/13/2024 Orders Only [address] [place] [address] Karson Avitia MD <No scans attached> 08/10/2024 Travel 08/08/2024 Telephone [facility] [address] [place] [address] Karson Avitia MD Medication Management (Breast Prosthesis ) 08/03/[address] [address] Karson Avitia MD Questions 07/31/2024 1:40 PM PATIENT SERVICE ASSOCIATE Office Visit [facility] [address] [place] [address] Norman Manuel MD Follow Up (Follow up after MRI 05/28/24 ) 07/30/2024 Travel 07/23/2024 Refill [facility] [address] [place] [address] Karson Avitia MD Refill Request (atorvastatin (LIPITOR) 40 mg tablet/) 07/10/2024 Telephone [facility] [address] [place] [address] Karson Avitia MD Questions (BRAS) 07/02/2024 9:20 AM PATIENT SERVICE ASSOCIATE Ancillary Procedure [facility] [address] [place] [address] 07/02/2024 Travel 06/28/2024 Telephone [facility] [address] [place] [address] Karson Avitia MD Refill Request (Metoprolol Tartrate ) 06/27/2024 Travel 06/12/2024 2:30 PM PATIENT SERVICE ASSOCIATE Office Visit [facility] [address] [place] [address] Karson Avitia MD Hospital F/U ([place], 05/29/24, pneumonia, sepsis) 06/12/2024 Travel 05/31/2024 Orders Only [facility] [address] [place] [address] Karissa Correa PA 1 scan: (1-Ord) NFLD-EKG-05/29/24 from Last 3 Months Immunizations Immunization Administration Dates Next Due AMB Influenza, IIV3 (Age >=3 years)(Flu Clinic Only) 04/02/2008 COVID-19 VACCINE SPIKEVAX (M ODERNA 50MCG/0.5ML) 12YO+ PFS 08/21/2024 COVID-19 vaccine (VeriCenter-Bio NTech 30mcg/0.3mL) PF, MDV 07/24/2020,07/03/2020 INFLUENZA, IIV3 PF (AGE >= 6 MO) 02/25/2010 Influenza, High-dose Inactivated 024,02/07/2019,02/15/2018,02/25,02/26/2016,03/06/2015,03/05/2015 ,03/04/2014,02/13/2013 Influenza, High-dose Quadriv alent Inactivated 02/22/2023,02/16/2021 Influenza, IIV3 (Age >=3 years) 02/16/20 13,02/18/2012,02/24/2011,02/25,02/24/2009,06/13/2005 Influenza, Inactivated AIIV4 (Age 65+ Years) Preserv Free 02/16/2022 Influenza, Inactivated IIV3 (Age 65+ Years) Preserv Free 02/16/2021,02/07/2019,03/13/2017 Pneumococcal Poly,23-Valent (Pneumovax) 10/02/2002,04/18/2002,06/13/1995 Pneumococcal conj 13-Valent (Prevnar 13) 08/19/2014 RSV, Recombinant ADJ Reconst ituted (Arexvy 120MCG/0.5mL) 03/09/2023 Td (Age >=7 Years) 12/25/2008,09/30/1999 Td, Preservative Free (age >= 7 Years) 9 Tdap 07/08/2021,04/21/2011 Zoster (Shingrix-RZV, recombinant) 10/21/2017, Zoster (Zostavax-ZVL, live) 03/20/2007 Family History Medical History Relation Name Comments Heart Disease Father lived to be 89 Other Mother age 50, Br ight's disease Good Health Sister Cancer-breast No Family History Relation Name Status Comments Father (Age 89) CAD Mother (Age 51) Bright's d isease Sister Social History Tobacco Use Types Packs/Day Years Used Date Smoking Tobacco: Never Passive Smoke Exposure: Never Smokeless Tobacco: Never Tobacco Cessation:Counseling Given: Yes Alcohol Use Standard Drinks/Week Comments Yes 0 (1 standard drink = 0.6 oz pur e alcohol) 3 drinks per week or less PHQ-2 Answer Date Recorded PHQ-2 TOTAL SCORE 0 08/20/2024 Social Connections Answer Date Recorded Do you often feel lonely or isolated from those around you? 0 09/21/2023 Financial Resource Strain Answer Date R ecorded Difficulty of Paying Living Expenses 3 09/21/2023 Difficulty of Paying Living Expenses Not on file 09/21/2023 Food Insecurity Answer Date Recorded Do you worry your food will run out before you are able to buy more? 1 09/21/2023 Transportation Needs Answer Date Record ed Does lack of transportation keep you from medica l appointments? 1 09/21/2023 Does lack of transportation keep you from work, meetings or getting things that you need? 1 09/21/2023 Housing Stability Answer Date Recorded What is your housing situation today? 1 09/21/2023 Utilities Answer Date Recorded Do you have trouble paying f or utilities (for example, heat, electricity, water, phone)? 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 Not on file Not on file Not on fi le Obstetrics History Para Term AB IAB SAB Ectopic Multiple Livin g Live Births 4 3 3 0 1 0 1 0 0 3 Date Outcome GA Total Labor Labor/2nd/3rd Weight Sex Type Anes PTL Olga Lidia A1 A5 Name Clin Term Term Term SAB Last Filed Vital Signs Vital Sign Reading Time Taken Comments Blood Pressure 129/72 08/21/2024 1:50 PM CDT Pulse 70 08/21/2024 1:50 PM CDT Temperature 36.6 C (97.8 F) 08/21/2024 1:50 PM CDT Respiratory Rate 15 03/06/2024 1:27 PM CDT Oxygen Saturation 99% 08/21/2024 1:50 PM CDT Inhaled Oxygen Concentration - - Weight 60.4 kg (133 lb 3.2 oz) 08/21/2024 1:50 P M CDT Height 161.7 cm (5' 3.66) 08/21/2024 1:50 PM CD T Body Mass Index 23.11 08/21/2024 1:50 PM CDT Plan of Treatment Upcoming Encounters Date Type Department Care Team (Late st Contact Info) Description 09/03/2024 9:30 AM CDT Ancillary Procedure [facility] [address] [place] [address] 2024 9:35 AM CDT Office Visit [facility] [address] [place] [address] Votel, Karson Chacon MD [address] [place] [address] 10/10/2024 10:30 AM CDT Office Visit [facility] [address] [facility] [place] [id number] Mercedes Darling PA [address] [place] [address] Health Maintenance Due Date Last Done Comments COVID-19 vaccine series (2023- season) 2024 08/21/2024, 02/20/2024, 09/14/2023, Additional history exists BMI (ht and wt on same day) for age 18+ 08/21/2025 08/21/2024, 03/08/2024, 01/27/2024, Additional history exists Depression screening for age 12+ 08/21/2025 08/21/2024, 08/20/2024, 06/14/2023, Additional history exists Medicare Wellness for age 65+ 08/22/2025, 06/14/2023, 05/04/2022, Additional history exists Tetanus booster 07/08/2031 07/08/2021, 02/2011, 12/25/2008, Additional history exists Pneumococcal series for age 50+ Completed 08/19/2014, 10/02/2002, 04/18/2002, Additional history exists Zoster (shingles) series for age 50+ Completed 10/21/2017, 08/22/2017, 03/20/2007 DEXA/DXA scan for age 65+ Completed 2019, 03/31/2017, 03/05/2014, Additional history exists Tdap Completed 07/08/2021, 04/21/2011 RSV vaccine for adults or Completed 03/09/2023 Influenza Vaccine Completed 02/20/2024, , 02/16/2021, Additional history exists Procedures Procedure Name Priority Date/Time Associated Diagnosis Comments HEMOGLOBIN A1C MONITORING (POCT) Routine 08/21/2024 3:23 PM CDT Elevated blood sugar level XR HIP 1 VIEW W PELVIS RIGHT Routine 08/21/2024 2:47 PM CDT Hip pain, right CT CHEST W Routine 08/13/2024 2:12 PM PATIENT SERVICE ASSOCIATE Lingular pneumonia CREATININE,ISTAT Routine 08/13/2024 1:31 PM PATIENT SERVICE ASSOCIATE Observation or evaluation for suspected condition XR MAMMO MERY UNI SCREEN RIGHT Routine 07/02/2024 9:43 AM PATIENT SERVICE ASSOCIATE Encounter for screening mammogram for malignant neoplasm of breast EKG 12 LEAD Routine 05/31/2024 10:56 AM PATIENT SERVICE ASSOCIATE Cough, unspecified type Tachycardia DC READING EKG - NO CHARGE, COMP ONLY Routine 05/31/2024 10:55 AM PATIENT SERVICE ASSOCIATE Cough, unspecified type Tachycardia XR DXA BONE DENSITY 2 SITES AXIAL Routine 04/16/2020 10:57 AM PATIENT SERVICE ASSOCIATE Menopause from Last 3 Months or Most Recently Relevant to Health Maintenance Results * HEMOGLOBIN A1C MONITORING (POCT) (08/21/2024 3:23 PM CDT) POC HEMOGLOBIN A1C 5.6 <6.0 % OF TOTAL HGB [facility] Comment: Any point of care results exhibiting inconsistency with the patient's clinical status should be repeated using a different testing method. Blood BLOOD SPECIMEN / Unknown 08/21/2024 3:23 PM CDT 08/21/2024 3:23 PM CDT Karson Avitia MD CHEMISTRY Final Re sult [facility] [address] [place] [address], [facility] [address] [place] [address] * XR HIP 1 VIEW W PELVIS RIGHT (08/21/2024 2:47 PM CDT) Anatomical Region Laterality Modality HIPS, HIPR, Pelvis Computed Radi ography 08/21/2024 3:34 PM CDT Narrative 08/21/2024 3:34 PM CDT For Patients: As a result of the Century Cures Act, medical imaging exams and procedure reports are released immediately into your electronic medical record. You may view this report before your referring provider. If you have questions, please contact your health care provider. Indication: Hip pain Technique: Pelvis and right hip 2 views Comparison: 07/23/2021 Findings: Joint space narrowing and spurring at the right hip. Chondrocalcinosis. Hypertrophic changes at the symphysis pubis with reactive subchondral sclerosis. No fracture. Impression: Degenerative joint disease right hip, progressed since the prior study. Dictated by Pete Meza MD @ 08/21/2024 3:34:09 PM (Electronically Signed) Procedure Note Pete Meza MD - 08/21/2024 For Patients: As a result of the Cures Act, medical imagingexams and procedure reports are released immediately into your electronicmedical record. You may view this report before your referring provider.If you have questions, please contact your health care provider. Indication: Hip pain Technique: Pelvis and right hip 2 views Comparison: 07/23/2021 Findings: Joint space narrowing and spurring at the right hip. Chondrocalcinosis.Hypertrophic changes at the symphysis pubis with reactive subchondralsclerosis. No fracture. Impression: Degenerative joint disease right hip, progressed since the prior study. Dictated by Pete Meza MD @ 08/21/2024 3:34:09 PM (Electronically Signed) Karson Avitia MD GENERAL IMAGING Final Re sult * CT CHEST W (08/13/2024 2:12 PM PATIENT SERVICE ASSOCIATE) Anatomical Region Laterality Modality CHEST, THORAX, HEART Computed To mography 08/13/2024 3:19 PM PATIENT SERVICE ASSOCIATE Narrative 08/13/2024 3:19 PM PATIENT SERVICE ASSOCIATE For Patients: As a result of the Cures Act, medical imaging exams and procedure reports are released immediately into your electronic medical record. You may view this report before your referring provider. If you have questions, please contact your health care provider. Indication: Lingular pneumonia Technique: CT CHEST W Omnipaque 350 100 ML Please note that all CT scans at this facility use dose modulation, iterative reconstruction, and/or weight-based dosing when appropriate to reduce radiation dose to as low as reasonably achievable. Comparison: 01/27/2024, 05/29/2024 Findings: Near-complete resolution of the lingular infiltrate when compared to the prior study with residual airspace density containing air bronchograms at the inferolateral aspect of the lingula adjacent to the fissure. No pleural effusion. Chronic airspace densities within both upper lobes. No pneumothorax. No CHF. Increased thoracic kyphosis with multilevel degenerative disc disease. No vertebral body compression fracture. Right-sided calcified granulomas are chronic. No suspicious pulmonary nodule. Similar mild fullness of the mediastinal and hilar lymph nodes. Impression: Near-complete resolution of the lingular infiltrate compared to the most recent exam. Chronic upper lobe parenchymal densities with similar mild fullness of the mediastinal and bilateral hilar lymph nodes. Please note that all CT scans at this facility use dose modulation, iterative reconstruction, and/or weight-based dosing when appropriate to reduce radiation dose to as low as reasonably achievable. Dictated by Pete Meza MD @ 08/13/2024 3:19:38 PM (Electronically Signed) Procedure Note Pete Meza MD - 08/13/2024 For Patients: As a result of the Century Cures Act, medical imagingexams and procedure reports are released immediately into your electronicmedical record. You may view this report before your referring provider.If you have questions, please contact your health care provider. Indication: Lingular pneumonia Technique: CT CHEST W Omnipaque 350 100 ML Please note that all CT scans at this facility use dose modulation,iterative reconstruction, and/or weight-based dosing when appropriate toreduce radiation dose to as low as reasonably achievable. Comparison: 01/27/2024, 05/29/2024 Findings: Near-complete resolution of the lingular infiltrate when compared to theprior study with residual airspace density containing air bronchograms atthe inferolateral aspect of the lingula adjacent to the fissure. Nopleural effusion. Chronic airspace densities within both upper lobes. Nopneumothorax. No CHF. Increased thoracic kyphosis with multileveldegenerative disc disease. No vertebral body compression fracture.Right-sided calcified granulomas are chronic. No suspicious pulmonarynodule. Similar mild fullness of the mediastinal and hilar lymph nodes. Impression: Near-complete resolution of the lingular infiltrate compared to the mostrecent exam. Chronic upper lobe parenchymal densities with similar mild fullness of themediastinal and bilateral hilar lymph nodes. Please note that all CT scans at this facility use dose modulation,iterative reconstruction, and/or weight-based dosing when appropriate toreduce radiation dose to as low as reasonably achievable. Dictated by Pete Meza MD @ 08/13/2024 3:19:38 PM (Electronically Signed) Karson Avitia MD CT Final Re sult * POCT Creatinine (08/13/2024 1:31 PM PATIENT SERVICE ASSOCIATE) POCT,CREATININ E, ISTAT 1.0 0.6 - 1.3 mg/dL [facility] Blood BLOOD SPECIMEN / Unknown 08/13/2024 1:31 PM PATIENT SERVICE ASSOCIATE 08/13/2024 1:31 PM PATIENT SERVICE ASSOCIATE Karson Avitia MD CHEMISTRY Final Re sult [facility] [address] [place] [address], [facility] [address] [place] [address] * XR MAMMO MERY UNI SCREEN RIGHT (07/02/2024 9:43 AM PATIENT SERVICE ASSOCIATE) Anatomical Region Laterality Modality BREASTS, Breast Right Right Mammograph y Impressions 07/04/2024 1:43 PM PATIENT SERVICE ASSOCIATE There is no radiographic evidence for malignancy. Recommend annual mammograms. MAMMOGRAM ASSESSMENT: ACR 1 Negative PATIENTS: You will also receive a letter with your examination results in an easy to read format. If you have questions about your results, please contact your referring provider. Narrative 07/04/2024 1:43 PM PATIENT SERVICE ASSOCIATE For Patients: As a result of the 21st Century Cures Act, medical imaging exams and procedure reports are released immediately into your electronic medical record. You may view this report before your referring provider. If you have questions, please contact your health care provider. XR MAMMO MERY UNI SCREEN RIGHT [[id number]] CLINICAL HISTORY: This is an asymptomatic 88 y.o. patient. INDICATION FOR EXAM: Mammogram Screening. TECHNIQUE: CC & MLO views were obtained. This study was evaluated with the assistance of Computer-Aided Detection. Breast Tomosynthesis was used in interpretation. COMPARISON FILM: Yes 06/30/23 [facility] 06/29/22 [facility] FINDINGS: The breasts are almost entirely fatty. There are no dominant masses, suspicious micro calcifications or areas of architectural distortion. Karson Avitia MD MAMMO Final Re sult * EKG 12 LEAD (05/31/2024 10:56 AM PATIENT SERVICE ASSOCIATE) Karissa OLIVEIRA EKG ORD Final Result * DC READING EKG - NO CHARGE, COMP ONLY (05/31/2024 10:55 AM PATIENT SERVICE ASSOCIATE) Karissa OLIVEIRA PB - PROVIDER READINGS Final Result * XR DXA BONE DENSITY 2 SITES AXIAL (04/16/2020 10:57 AM PATIENT SERVICE ASSOCIATE) Anatomical Region Laterality Modality Spine, HIPS, HIPL, HIPR Other Narrative 04/23/2020 1:09 PM PATIENT SERVICE ASSOCIATE Please see scanned document for results of this study. Karson Avitia MD DEXA Final Re sult from Last 3 Months or Most Recently Relevant to Health Maintenance Insurance MEDICARE PART B HB ONLY MEDICARE PART A HB ONLY [facility] MEDICARE PB ONLY Advance Directives Documents on File Type Date Recorded Patient Food Beverage Supervisor Expl anation Healthcare Directive 12/08/2015 11:37 AM A Padmini LAM, 11/28/2015 * Full Code (Latest Code Status on File) Date Activated Date Inactivated Comments 07/02/2018 11:25 PM 07/06/2018 2:32 PM Care Teams Division Chief Relationship Specialty Start Date End Date Votel, Karson Chacon MD [address] [place] [address] PCP - General Family Practice 04/26/14 Ami Logan AuD Audiology 09/27/11 Stu Astudillo [address] [place] [address] Ophthalmology Ophthalmology Surgery 03/02/13
--- OUTSIDE RECORDS SUMMARY | 2024-08-29 15:24 | XMS_ITS | Clinical Summary ---
Author Organization [facility] Address [address] [place] [id number] Phone Care Team Providers Care Health And Nutrition Specialist Name Role Phone XanderteKarson wen Primary Care Provider Source Comments Hopela is fully rolled out on [place]. Last update 11/15/08.[facility] Allergies Active Allergy Reactions Criticality Noted Date Comments Penicillins Rash 06/12/2015 Has tolerated cephalosporins Sulfa Antibiotics Unknown 06/12/2015 Medications * Be aware that medications may not be up to date as of this document. Always verify current medications with patient. clopidogrel (PLAVIX) 75 mg oral tablet Take 1 tablet (75 mg) by mouth daily.Do not skip doses. Do not stop taking medication unless told by a physician. Active Calcium Carbonate (CALCIUM 600 ORAL) Take 1,800 mg by mouth daily. Active Cholecalciferol (VITAMIN D ORAL) Take 1,200 Int'l Units by mouth daily. Active chelated zinc (RA ZINC PICOLINATE) 50 mg oral tablet Take by mouth twice daily. Active triamcinolone acetonide (KENALOG) 0.1 % externally ointment Apply to skin one time as needed. Active atorvastatin (LIPITOR) 40 mg oral tablet Take 1 tablet (40 mg) by mouth daily. 30 tablet 11 5 Active Ivermectin 1 % externally cream Apply topically one time as needed. Active sodium chloride 3 % inhalation neb solutionIndicat ions:Subacute cough,Bronchiec tasis (CMS/HHS),Pneum onia due to infectious organism, unspecified laterality, unspecified part of lung Inhale 4 mL twice daily.Fill if needed for a flare 240 mL 11 10/10/202 4 Active albuterol (ACCUNEB;VENTOL IN) 2.5 mg/3 mL inhalation inhalation solutionIndicat ions:Pneumonia due to infectious organism, unspecified laterality, unspecified part of lung 3 mL (2.5 mg) by Nebulization route every 4 hours as needed for Wheezing.Flare if needed - don't need to fill yet 360 mL 1 4 Active Active Problems Problem Noted Date Diagnosed Date Hyperlipidemia 06/12/2015 Hx-TIA (transient ischemic attack) 06/12/2015 Prediabetes 06/12/2015 Rectocele 06/12/2015 Malignant neoplasm of female breast ([facility]) Rosacea 06/12/2015 Obstructive sleep apnea 06/12/2015 Iron deficiency anemia 06/12/2015 Bone disorder 06/12/2015 Paroxysmal atrial tachycardia ([facility]) 06/12/2015 Immunizations Immunization Administration Dates Next Due Pneumococcal Conjugate, 20-Valent Vaccine (Prevn ar 20) 03/22/2024 Family History Medical History Relation Name Comments Heart disease Father Relation Name Status Comments Father (Age 89) heart dise ase Mother (Age 50) Bright's D isease Sister Alive as of 03/2015, in good health Social History Tobacco Use Types Packs/Day Years Used Date Smoking Tobacco: Never Smokeless Tobacco: Never Alcohol Use Standard Drinks/Week Comments No 0 (1 standard drink = 0.6 oz pur e alcohol) Comments Unknown Sex and Gender Information Value Date Recorded Sex Assigned at Female 02/04/2024 7:56 PM CDT Legal Sex Female 3:47 PM LEARNING DEVELOPER Gender Identity Female 02/04/2024 7:56 PM CDT Sexual Orientation Not on file Occupation Industry Job Start Date Job End Date retired Not on file Not on file Not on file Last Filed Vital Signs Vital Sign Reading Time Taken Comments Blood Pressure 140/73 03/22/2024 11:07 AM CDT Pulse 64 03/22/2024 11:07 AM CDT Temperature 37.1 C (98.8 F) 06/12/2015 2:28 PM LEARNING DEVELOPER Respiratory Rate - - Oxygen Saturation 98% 03/22/2024 11: 07 AM CDT Room air, at rest. Inhaled Oxygen Concentration - - Weight 59.1 kg (130 lb 4 oz) 03/22/2024 11:07 AM CDT Height 167 cm (5' 5.75) 03/22/2024 11: 07 AM CDT Body Mass Index 21.18 03/22/2024 11:07 AM CDT Plan of Treatment Health Maintenance Due Date Last Done Comments Dental Oral Exam 1936 Dental Prophylaxis 1936 Dental X-Ray: Bitewings 1936 Periodontal Maintenance 1950 PREVENTATIVE VISIT 1954 HEALTH MAINTENANCE PROTOCOL 09/07/1955 Osteoporosis Screening (Dexa Scan) 2001 Medicare Annual Wellness 06/14/2024 024, 05/04/2022, 04/29/2021, Additional history exists Imm: COVID-19 () 08/19/2024 02/20/2024, 09/14/2023, 03/09/2023, Additional history exists Imm: DTaP/Tdap (3 - Td or Tdap) 07/08/2031 07/08/2021, 04/21/2011, 12/25/2008, Additional history exists Imm: Zoster Completed 10/21/2017, 08/22/2017 Imm: Flu Completed 02/20/2024, 02/11, 02/16/2021, Additional history exists Imm: Pneumonia 50 years and older Completed 03/22/2024, 10/02/2002, 04/18/2002, Additional history exists Imm: HPV Aged Out No longer eligi ble based on patient's age to complete this topic Imm: HepA Aged Out No longer eligi ble based on patient's age to complete this topic Imm: HepB Aged Out No longer eligi ble based on patient's age to complete this topic Imm: Hib Aged Out No longer eligi ble based on patient's age to complete this topic Imm: Meningitis Aged Out No longer el igible based on patient's age to complete this topic Insurance MEDICARE [facility] Managed Care Address: [facility] [address] [place] [address] Care Teams Health And Nutrition Specialist Relationship Specialty Start Date End Date XanderteKarson wen PCP - General Outside Provider 05/23/15
--- OUTSIDE RECORDS SUMMARY | 2024-08-29 15:24 | XMS_ITS | Referral Summary ---
Author Organization [employer] [employer] [facility] Address [address] [place] [id number] Phone Care Team Providers Care Industrial Cleaner Name Role Phone XanderteKarson wen Primary Care Provider [phone] Source Comments Masala is fully rolled out on [place]. Last update 11/15/08.[facility] Allergies Active Allergy Reactions Criticality Noted Date [...] Rectocele 06/12/2015 Malignant neoplasm of female breast ([facility]) Rosacea 06/12/2015 Obstructive sleep apnea 06/12/2015 Iron deficiency anemia 06/12/2015 Bone disorder 06/12/2015 Paroxysmal atrial tachycardia ([facility]) 06/12/2015 Immunizations Immunization Administration Dates Next Due Pneumococcal Conjugate, 20-Valent Vaccine (Prevn ar 20) 03/22/2024 Social History Tobacco Use Types Packs/Day Years Used Date Smoking Tobacco: Never Smokeless Tobacco: Never Alcohol Use Standard Drinks/Week Comments No 0 (1 standard drink = 0.6 oz pur e alcohol) Comments Unknown Sex and Gender Information Value Date Recorded Sex Assigned at Female 02/04/2024 7:56 PM CDT Legal Sex Female 3: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 Inhaled Oxygen Concentration - - Weight 59.1 kg (130 lb 4 oz) 03/22/2024 11:07 AM CDT Height 167 cm (5' 5.75) 03/22/2024 11: 07 AM CDT Body Mass Index 21.18 03/22/2024 11:07 AM CDT Plan of Treatment Not on file Insurance MEDICARE [facility] [place] [id number] Care Teams Industrial Cleaner Relationship Specialty Start Date End Date VoteKarson wen: [id number] PCP - General Outside Provider 05/23/15
[2024-08-29 15:49] VITALS: BP 150/79; PULSE 63; RESP 12; TEMP 36.9; O2SAT 99; BMI 23.0
--- NOTE | 2024-08-29 15:59 | CRLHL7_ITS ---
For Patients: As a result of the Century Cures Act, medical imaging exams and procedure reports are released immediately into your electronic medical record. You may view this report before your referring provider. If you have questions, please contact your health care provider. INDICATION: Fall. On blood thinners. Bump back of head. TECHNIQUE: CT head without contrast. COMPARISON: CT head without contrast 03/24/2024. FINDINGS: Mild low-attenuation in the periventricular and subcortical white matter, remote right hemispheric infarct and lacunar infarct in the left cerebellum, as before. No mass effect or midline shift. No hydrocephalus. No CT evidence of acute hemorrhage or infarction. No abnormal extra-axial fluid collection. Bone windows show no acute calvarial fracture. Paranasal sinuses and orbits as imaged are unremarkable. IMPRESSION: No acute intracranial abnormality. Dictated by Everardo Price MD @ 08/29/2024 4:33:26 PM Please note that all CT scans at this facility use dose modulation, iterative reconstruction, and/or weight-based dosing when appropriate to reduce radiation dose to as low as reasonably achievable. Dictated by: Everardo Price MD @ 08/29/2024 16:33:38 (Electronically Signed)
--- NOTE | 2024-08-29 17:06 | CRLHL7_ITS ---
For Patients: As a result of the Century Cures Act, medical imaging exams and procedure reports are released immediately into your electronic medical record. You may view this report before your referring provider. If you have questions, please contact your health care provider. INDICATION: FALL, HIT HEAD. TECHNIQUE: CT of the cervical spine was performed without intravenous contrast. COMPARISON: None. FINDINGS: Alignment: Normal. Vertebrae: Osteopenia. Vertebral bodies and posterior elements are intact without acute fracture. Moderate degenerative changes of the visualized spine. Extra-vertebral soft tissues: Normal. Visualized brain: Normal. Additional comment: Moderate biapical pleural-parenchymal scarring. Heterogeneous thyroid. IMPRESSION: No acute displaced fracture or malalignment of the cervical spine. Please note that all CT scans at this facility use dose modulation, iterative reconstruction, and/or weight-based dosing when appropriate to reduce radiation dose to as low as reasonably achievable. Dictated by Wallace Rahman MD @ 08/29/2024 6:36:45 PM (Electronically Signed)
--- NOTE | 2024-08-29 17:10 | ED.FALL ---
HPI - Fall General Date Seen: 08/29/24 Chief Complaint: Fall/Minor Trauma Stated Complaint: fell yesterday, hit head Time Seen by Provider: 08/29/24 16:54 Source: patient Mode of arrival: ambulatory Limitations: no limitations History of Present Illness HPI Narrative: Patient is an 88-year-old with a history of CVA currently on Eliquis presenting to the emergency department after a fall. She states yesterday she tripped on a mat and hit her head. She is not sure what she hit her head on if it was the refrigerator or cabinet. S she was able to get herself back up by crawling to the couch. She has been doing well since then and states she did not come in right away because every time she falls and hits her head she gets checked out and she is always okay. She decided today she should probably come in to make sure. Denies any lightheadedness or dizziness before or after the fall. Denies ever losing consciousness. States usually her falls because her legs get weak on her this time she believes is his she tripped over the mat. No other injuries noted. No other concerns. Related Data Home Medications ?Medication ?Instructions ?Recorded ?Confirmed apixaban 5 mg tablet (Eliquis) 5 mg PO BID 02/23/22 05/29/24 atorvastatin 40 mg tablet 40 mg PO DAILY 02/23/22 05/29/24 hydrochlorothiazide 12.5 mg tablet 12.5 mg PO DAILY 02/23/22 05/29/24 metoprolol tartrate 50 mg tablet 25 mg PO BID 02/23/22 05/29/24 albuterol sulfate 2.5 mg/3 mL 2.5 mg inhalation Q6H PRN 03/25/24 05/29/24 (0.083 %) solution for nebulization carboxymethylcellulose sodium 1 % 1 drp ophthalmic (eye) Q1H PRN 03/25/24 05/29/24 eye liquid gel drops triamcinolone acetonide 0.1 % 1 applic topical BID PRN 03/25/24 05/30/24 topical cream zinc sulfate 50 mg zinc (220 mg) 50 mg PO 2XW 03/25/24 05/30/24 capsule albuterol sulfate 90 mcg/actuation 2 puff inhalation Q4H PRN wheezing 05/30/24 05/30/24 aerosol inhaler aspirin 81 mg tablet,delayed 81 mg PO DAILY 05/30/24 05/30/24 release (Adult Aspirin Regimen) calcium 600 mg (as 1 tab PO BID 05/30/24 05/30/24 carbonate)-vitamin D3 10 mcg (400 unit) tablet (Calcium 600 + D(3)) sodium chloride 3 % for 4 ml inhalation Q6H PRN 05/30/24 05/30/24 nebulization Previous Rx's ?Medication ?Instructions ?Recorded Walker- 4 Wheels #1 ea 05/30/24 levofloxacin 250 mg tablet 250 mg PO Q24H #4 tabs 05/31/24 levofloxacin 750 mg tablet 750 mg PO Q24H #4 tabs 05/31/24 Allergies Allergy/AdvReac Type Severity Reaction Status Date / Time penicillin G Allergy Unknown Verified 08/29/24 15:49 Sulfa (Sulfonamide Allergy Unknown Verified 08/29/24 15:49 Antibiotics) Review of Systems Narrative: Pertinent systems reviewed and were negative unless stated in HPI PFSH PFS Medical History Conjunctivitis ?H10.9 - Unspecified conjunctivitis (ICD-10) 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 - Sarcoidosis of lung (ICD-10) 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 ?I63.411 - Cerebral infarction due to embolism of right middle cerebral artery (ICD-10) Hypertension ?I10 - Essential (primary) hypertension (ICD-10) Obstructive sleep apnea ?G47.33 - Obstructive sleep apnea (adult) (pediatric) (ICD-10) Coronary artery disease ?I25.10 - Atherosclerotic heart disease of [place] coronary artery without angina pectoris (ICD-10) Mitral regurgitation ?I34.0 - Nonrheumatic mitral (valve) insufficiency (ICD-10) Breast cancer ?C50.919 - Malignant neoplasm of unspecified site of unspecified female breast (ICD-10) Bronchiectasis ?J47.9 - Bronchiectasis, uncomplicated (ICD-10) Chronic anticoagulation ?Z79.01 - supervisor intermediates (current) use of anticoagulants (ICD-10) Hyperlipidemia ?E78.5 - Hyperlipidemia, unspecified (ICD-10) Surgical History History of total abdominal hysterectomy and bilateral salpingo-oophorectomy ?Z90.710 - Acquired absence of both cervix and uterus (ICD-10) ?Z90.722 - Acquired absence of ovaries, bilateral (ICD-10) ?Z90.79 - Acquired absence of other genital organ(s) (ICD-10) History of cholecystectomy ?Z90.49 - Acquired absence of other specified parts of digestive tract (ICD-10) History of bladder repair surgery ?Z98.890 - Other specified postprocedural states (ICD-10) History of appendectomy ?Z90.49 - Acquired absence of other specified parts of digestive tract (ICD-10) H/O mastectomy ?Z90.10 - Acquired absence of unspecified breast and nipple (ICD-10) Family History Mother Bright's disease Father Heart disease Social History Narrative: She lives in [place]. She lives independently. She indicates that her 2 daughters, Sandie and Kendal and her son Sanjeev would be healthcare power of civil litigation attorney. Code status is DNR. She does not smoke. She drinks alcohol about once a week What is your current living situation?: I presently have a place to live Problems where you live: no known problems Problems where you live details: none In the past 12 months, utilities in danger of being shut off: no In past 12 months, lack of transportation kept you from medical appts, meetings, work, or getting things needed for daily living: no In the past 12 mos, have been you worried that your food would run out before you had money to buy more?: never true In the past 12 mos, the food you bought just didn't last and you didn't have money to buy more?: never true Highest level of school completed/degree received: Master's degree Smoking Status: Never smoker Do you use any of these nicotine containing products: None Second hand tobacco smoke exposure: No How often do you have a drink containing alcohol: 2-4 times a month How many standard drinks containing alcohol do you have on a typical day: 1 or 2 How often do you have six or more drinks on one occasion: Never AUDIT-C Alcohol total score: 2 Non-prescribed substance use: denies use Caffeine: No How often does anyone, including family, friends and others, physically hurt you: never How often does anyone, including family, friends and others, insult or talk down to you: never How often does anyone, including family, friends and others, threaten you with harm: never How often does anyone, including family, friends and others, scream or curse at you: never service: No Exam Narrative: Exam Narrative: Const: Well-nourished, Well-developed, in no distress Eyes: PERRL, no conjunctival injection, and symmetrical lids HENT: Atraumatic external nose and ears. Moist mucous membranes. Neck: Symmetric, trachea midline, No thyromegaly. CVS: RRR, No murmurs or gallops. Peripheral pulses 2+ and equal in all extremities RESP: Unlabored respiratory effort. Clear to auscultation bilaterally. GI: Nontender/Nondistended, No rebound or guarding. MSK:Extremities w/o deformity, Normal Active ROM, no midline spinal tenderness, Skin: Warm, Dry. No rashes or lesions. Neuro: Normal Muscle tone, No focal neurological deficits. Psych: Awake, Alert, & Oriented x3. Appropriate mood and affect. Const: Vital Signs, click to edit/add: Vital Signs - 24 hr 08/29/24 15:49 Temperature 98.4 F Pulse Rate [Pulse Oximeter] 63 Respiratory Rate 12 Blood Pressure [Ri ght Upper Arm] 150/79 H Pulse Oximetry 99 Oxygen Delivery Me thod Room Air Course Vital Signs Vital signs: Initial Vital Signs Temperature 98.4 F 08/29/24 15:49 Temperature Source Temporal Artery Scan 08/29/24 15:49 Pulse Rate 63 08/29/24 15:49 Respiratory Rate 12 08/29/24 15:49 Blood Pressure 150/79 H 08/29/24 15:49 Blood Pressure Mean 102 08/29/24 15:49 Blood Pressure Position Sitting 08/29/24 15:49 Pulse Oximetry 99 08/29/24 15:49 Oxygen Delivery Method Room Air 08/29/24 15:49 Vital Signs Temperature 98.4 F 08/29/24 15:49 Pulse Rate 63 08/29/24 15:49 Respiratory Rate 12 08/29/24 15:49 Blood Pressure 150/79 H 08/29/24 15:49 Pulse Oximetry 99 08/29/24 15:49 Oxygen Delivery Method Room Air 08/29/24 15:49 Temperature 98.4 F 08/29/24 15:49 Pulse Rate 63 08/29/24 15:49 Respiratory Rate 12 08/29/24 15:49 Blood Pressure 150/79 H 08/29/24 15:49 Pulse Oximetry 99 08/29/24 15:49 Oxygen Delivery Method Room Air 08/29/24 15:49 MDM - Fall MDM Narrative Medical decision making narrative: Patient is a 88-year-old female presenting to the emergency department after a fall. CT scan of her head was ordered via nursing staff while she was in the triage. It returned showing no acute concerning abnormalities. Consider cannot rule out any head injuries with the x-ray C-spine rule due to her age I will also order CT scan of the cervical spine. CT scan reviewed by myself and the radiologist shows no concerning abnormalities. This time she is doing well and believe she is safe for discharge. She is agreeable to this plan. Imaging Data CT scan head: Attestation: I have reviewed the pertinent imaging results. Radiologist's impression: No acute intracranial abnormality. Dictated by Everardo Price MD @ 08/29/2024 4:33:26 PM Please note that all CT scans at this facility use dose modulation, iterative reconstruction, and/or weight-based dosing when appropriate to reduce radiation dose to as low as reasonably achievable. Dictated by: Everardo Price MD @ 08/29/2024 16:33:38 CT scan cervical spine: Attestation: I have reviewed the pertinent imaging results. Radiologist's impression: No acute displaced fracture or malalignment of the cervical spine. Please note that all CT scans at this facility use dose modulation, iterative reconstruction, and/or weight-based dosing when appropriate to reduce radiation dose to as low as reasonably achievable. Dictated by Wallace Rahman MD @ 08/29/2024 6:36:45 PM Discharge Plan Discharge Clinical Impression: Closed head injury Qualifiers: Encounter type: initial encounter Qualified Code(s): S09.90XA - Unspecified injury of head, initial encounter Patient Disposition: Home, Self-Care Condition: Stable Instructions: Head Injury (DC) Additional Instructions: Take Tylenol for headache. Return to emergency department for new or worsening symptoms. Prescriptions: No Action albuterol sulfate 2.5 mg /3 mL (0.083 %) solution for nebulization 2.5 mg inhalation Q6H PRN triamcinolone acetonide 0.1 % cream 1 applic topical BID PRN carboxymethylcellulose sodium 1 % drops, liquid gel 1 drp ophthalmic (eye) Q1H PRN zinc sulfate 50 mg zinc (220 mg) capsule 50 mg PO 2XW atorvastatin 40 mg tablet 40 mg PO DAILY Eliquis 5 mg tablet 5 mg PO BID metoprolol tartrate 50 mg tablet 25 mg PO BID hydrochlorothiazide 12.5 mg tablet 12.5 mg PO DAILY calcium carbonate-vitamin D3 [Calcium 600 + D(3)] 600 mg-10 mcg (400 unit) tablet 1 tab PO BID albuterol sulfate 90 mcg/actuation HFA aerosol inhaler 2 puff inhalation Q4H PRN (Reason: wheezing) sodium chloride 3 % solution for nebulization 4 ml inhalation Q6H PRN aspirin [Adult Aspirin Regimen] 81 mg tablet,delayed release (DR/EC) 81 mg PO DAILY (DME) [facility] See Rx Instructions .Route Qty: 1 0RF Rx Instructions: as directed levofloxacin 750 mg tablet 750 mg PO Q24H Qty: 4 0RF Rx Instructions: start on 05/31/2024 levofloxacin 250 mg tablet 250 mg PO Q24H Qty: 4 0RF Follow Up/Referrals: Karson Avitia MD [Primary Care Provider] - Stand Alone Forms: [facility] Info Instructions
--- OUTSIDE RECORDS SUMMARY | 2024-08-29 17:25 | XMS_ITS | Referral Summary ---
Author Organization [employer] Address [address] [place] [id number] Phone Care Team Providers Care Shorthand Teacher Name Role Phone XanderteKarson wen Primary Care Provider [phone] Source Comments [email or web address] is fully rolled out on [employer]. Last update 11/15/08.[employer] Allergies Active Allergy Reactions Criticality Noted Date [...] Rectocele 06/12/2015 Malignant neoplasm of female breast ([facility]) Rosacea 06/12/2015 Obstructive sleep apnea 06/12/2015 Iron deficiency anemia 06/12/2015 Bone disorder 06/12/2015 Paroxysmal atrial tachycardia ([facility]) 06/12/2015 Immunizations Immunization Administration Dates Next Due [...] PM CDT Legal Sex Female 3:47 PM DIRECTOR OF REAL ESTATE Gender Identity Female 02/04/2024 7:56 PM CDT Sexual Orientation Not on file Occupation Industry Job Start Date Job End Date retired Not on file Not on file Not on file Last Filed Vital Signs Vital Sign Reading Time Taken Comments Blood Pressure 140/73 03/22/2024 11:07 AM CDT Pulse 64 03/22/2024 11:07 AM CDT Temperature 37.1 C (98.8 F) 06/12/2015 2:28 PM DIRECTOR OF REAL ESTATE Respiratory Rate - - Oxygen Saturation 98% 03/22/2024 11: 07 AM CDT Room air, at rest. Inhaled Oxygen Concentration - - Weight 59.1 kg (130 lb 4 oz) 03/22/2024 11:07 AM CDT Height 167 cm (5' 5.75) 03/22/2024 11: 07 AM CDT Body Mass Index 21.18 03/22/2024 11:07 AM CDT Plan of Treatment Not on file Insurance [place] [id number] [facility] Care Teams Shorthand Teacher Relationship Specialty Start Date End Date VoteKarson wen: [id number] PCP - General Outside Provider 05/23/15
--- OUTSIDE RECORDS SUMMARY | 2024-08-29 17:25 | XMS_ITS | Clinical Summary ---
Author Organization [facility] Address [address] [place] [address] Phone Care Team Providers Care Director Speech And Hearing Name Role Phone XanderteKarson wen Primary Care Provider [phone] Source Comments Handprint is fully rolled out on [employer] Last update 11/15/08.[facility] Allergies Active Allergy Reactions Criticality Noted Date [...] Rectocele 06/12/2015 Malignant neoplasm of female breast ([facility]) Rosacea 06/12/2015 Obstructive sleep apnea 06/12/2015 Iron deficiency anemia 06/12/2015 Bone disorder 06/12/2015 Paroxysmal atrial tachycardia ([facility]) 06/12/2015 Immunizations Immunization Administration Dates Next [...] PM CDT Legal Sex Female 3:47 PM DIGITAL CONTENT PRODUCER Gender Identity Female 02/04/2024 7:56 PM CDT Sexual Orientation Not on file Occupation Industry Job Start Date Job End Date retired Not on file Not on file Not on file Last Filed Vital Signs Vital Sign Reading Time Taken Comments Blood Pressure 140/73 03/22/2024 11:07 AM CDT Pulse 64 03/22/2024 11:07 AM CDT Temperature 37.1 C (98.8 F) 06/12/2015 2:28 PM DIGITAL CONTENT PRODUCER Respiratory Rate - - Oxygen Saturation 98% [...] age to complete this topic Insurance MEDICARE [facility] [[email or web address]] [facility] Managed Care Address: [facility] [address] [place] [address] Care Teams Director Speech And Hearing Relationship Specialty Start Date End Date XanderteKarson wen PCP - General Outside Provider 05/23/15
--- OUTSIDE RECORDS SUMMARY | 2024-08-29 17:25 | XMS_ITS | Clinical Summary ---
Author Organization [facility] Address [address] [place] [address] Care Team Providers Care Food Service Steward Name Role Phone Ami Logan Unavailable [phone] WildaStu steiner Unavailable Karson Avitia MD [...] ICD-10 Codes: Z90.12 and C50.912 fax to [phone] 3 Each 3 07/10/19 25 Active Post [...] Travel 08/21/2024 2:45 PM CDT Ancillary Procedure [address] [place] [address] 08/21/2024 1:40 PM CDT Office Visit [facility] [address] [place] [address] Karson Avitia MD Medicare ANNUAL (subsequent) Visit (88 year old female); Results (CT) 08/21/2024 Travel 08/16/2024 Travel 08/13/2024 1:30 PM CONFIGURATION MANAGEMENT ARCHITECT Ancillary Procedure [facility] [address] [place] [address] 08/13/2024 1:15 PM CONFIGURATION MANAGEMENT ARCHITECT Orders [place] [address] [place] [address] Lab, [place] [facility] 08/13/2024 Travel 08/13/2024 Orders Only [address] [place] [address] Karson Avitia MD <No scans attached> 08/10/2024 Travel 08/08/2024 Telephone [facility] [address] [place] [address] Karson Avitia MD Medication Management (Breast Prosthesis ) 08/03/[address] [address] Karson Avitia MD Questions 07/31/2024 1:40 PM CONFIGURATION MANAGEMENT ARCHITECT Office Visit [facility] [address] [place] [address] Norman Manuel MD Follow Up (Follow up after MRI 05/28/24 ) 07/30/2024 Travel 07/23/2024 Refill [facility] [address] [place] [address] Karson Avitia MD Refill Request (atorvastatin (LIPITOR) 40 mg tablet/) 07/10/2024 Telephone [facility] [address] [place] [address] Karson Avitia MD Questions (BRAS) 07/02/2024 9:20 AM CONFIGURATION MANAGEMENT ARCHITECT Ancillary Procedure [facility] [address] [place] [address] 07/02/2024 Travel 06/28/2024 Telephone [facility] [address] [place] [address] Karson Avitia MD Refill Request (Metoprolol Tartrate ) 06/27/2024 Travel 06/12/2024 2:30 PM CONFIGURATION MANAGEMENT ARCHITECT Office Visit [facility] [address] [place] [address] Karson Avitia MD Hospital F/U ([place], 05/29/24, pneumonia, sepsis) 06/12/2024 Travel 05/31/2024 Orders Only [facility] [address] [place] [address] Karissa Correa PA 1 scan: (1-Ord) NFLD-EKG-05/29/24 from Last 3 Months Immunizations Immunization Administration Dates Next Due AMB Influenza, IIV3 (Age >=3 years)(Flu Clinic Only) 04/02/2008 COVID-19 VACCINE SPIKEVAX (M ODERNA 50MCG/0.5ML) 12YO+ PFS 08/21/2024 COVID-19 vaccine (PodTech-Bio NTech 30mcg/0.3mL) PF, MDV 07/24/2020,07/03/2020 INFLUENZA, IIV3 [...] AM CDT Legal Sex Female 5:47 AM CONFIGURATION MANAGEMENT ARCHITECT Gender Identity Female 09/03/2020 10:39 AM CDT Sexual Orientation Straight 09/03/2020 10 :39 AM CDT Occupation Industry Job Start Date Job End Date 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 Not on file Not on file Not [...] Description 09/03/2024 9:30 AM CDT Ancillary Procedure [facility] [address] [place] [address] 2024 9:35 AM CDT Office Visit [facility] [address] [place] [address] Votel, Karson Chacon MD [address] [place] [address] 10/10/2024 10:30 AM CDT Office Visit [facility] [address] [facility] [place] [address] Mercedes Darling PA [address] [place] [address] Health Maintenance Due Date Last Done Comments [...] CT CHEST W Routine 08/13/2024 2:12 PM CONFIGURATION MANAGEMENT ARCHITECT Lingular pneumonia CREATININE,ISTAT Routine 08/13/2024 1:31 PM CONFIGURATION MANAGEMENT ARCHITECT Observation or evaluation for suspected condition XR MAMMO MERY UNI SCREEN RIGHT Routine 07/02/2024 9:43 AM CONFIGURATION MANAGEMENT ARCHITECT Encounter for screening mammogram for malignant neoplasm of breast EKG 12 LEAD Routine 05/31/2024 10:56 AM CONFIGURATION MANAGEMENT ARCHITECT Cough, unspecified type Tachycardia OH READING EKG - NO CHARGE, COMP ONLY Routine 05/31/2024 10:55 AM CONFIGURATION MANAGEMENT ARCHITECT Cough, unspecified type Tachycardia XR DXA BONE DENSITY 2 SITES AXIAL Routine 04/16/2020 10:57 AM CONFIGURATION MANAGEMENT ARCHITECT Menopause from Last 3 Months or Most Recently Relevant to Health Maintenance Results * HEMOGLOBIN A1C MONITORING (POCT) (08/21/2024 3:23 PM CDT) POC HEMOGLOBIN A1C 5.6 <6.0 % OF TOTAL HGB [facility] Comment: Any point of care results exhibiting inconsistency with the patient's clinical status should be repeated using a different testing method. Blood BLOOD SPECIMEN / Unknown 08/21/2024 3:23 PM CDT 08/21/2024 3:23 PM CDT Karson Avitia MD CHEMISTRY Final Re sult [facility] [address] [place] [address], [facility] [address] [place] [address] * XR HIP 1 VIEW W PELVIS [...] progressed since the prior study. Dictated by ePte Meza MD @ 08/21/2024 3:34:09 PM (Electronically Signed) Karson Avitia MD GENERAL IMAGING Final Re sult * CT CHEST W (08/13/2024 2:12 PM CONFIGURATION MANAGEMENT ARCHITECT) Anatomical Region Laterality Modality CHEST, THORAX, HEART Computed To mography 08/13/2024 3:19 PM CONFIGURATION MANAGEMENT ARCHITECT Narrative 08/13/2024 3:19 PM CONFIGURATION MANAGEMENT ARCHITECT For Patients: As a result of the [...] sult * POCT Creatinine (08/13/2024 1:31 PM CONFIGURATION MANAGEMENT ARCHITECT) POCT,CREATININ E, ISTAT 1.0 0.6 - 1.3 mg/dL [facility] Blood BLOOD SPECIMEN / Unknown 08/13/2024 1:31 PM CONFIGURATION MANAGEMENT ARCHITECT 08/13/2024 1:31 PM CONFIGURATION MANAGEMENT ARCHITECT Karson Avitia MD CHEMISTRY Final Re sult [facility] [address] [place] [address], [facility] [address] [place] [address] * XR MAMMO MERY UNI SCREEN RIGHT (07/02/2024 9:43 AM CONFIGURATION MANAGEMENT ARCHITECT) Anatomical Region Laterality Modality BREASTS, Breast Right Right Mammograph y Impressions 07/04/2024 1:43 PM CONFIGURATION MANAGEMENT ARCHITECT There is no radiographic evidence for malignancy. Recommend annual mammograms. MAMMOGRAM ASSESSMENT: ACR 1 Negative PATIENTS: You will also receive a letter with your examination results in an easy to read format. If you have questions about your results, please contact your referring provider. Narrative 07/04/2024 1:43 PM CONFIGURATION MANAGEMENT ARCHITECT For Patients: As a result of the 21st Century Cures Act, medical imaging exams and procedure reports are released immediately into your electronic medical record. You may view this report before your referring provider. If you have questions, please contact your health care provider. XR MAMMO MERY UNI SCREEN RIGHT [[id number]] CLINICAL HISTORY: This is an asymptomatic 88 [...] * EKG 12 LEAD (05/31/2024 10:56 AM CONFIGURATION MANAGEMENT ARCHITECT) Karissa OLIVEIRA EKG ORD Final Result * OH READING EKG - NO CHARGE, COMP ONLY (05/31/2024 10:55 AM CONFIGURATION MANAGEMENT ARCHITECT) Karissa OLIVEIRA PB - PROVIDER READINGS Final Result * XR DXA BONE DENSITY 2 SITES AXIAL (04/16/2020 10:57 AM CONFIGURATION MANAGEMENT ARCHITECT) Anatomical Region Laterality Modality Spine, HIPS, HIPL, HIPR Other Narrative 04/23/2020 1:09 PM CONFIGURATION MANAGEMENT ARCHITECT Please see scanned document for results of this study. Karson Avitia MD DEXA Final Re sult from Last 3 Months or Most Recently Relevant to Health Maintenance Insurance MEDICARE PART B HB ONLY MEDICARE PART A HB ONLY [facility] MEDIC[facility] PB ONLY Advance Directives Documents on File Type Date Recorded Patient Tobacco Checkout Clerk Expl anation Healthcare Directive 12/08/2015 11:37 AM A Padmini LAM, 11/28/2015 * Full Code (Latest Code Status on File) Date Activated Date Inactivated Comments 07/02/2018 11:25 PM 07/06/2018 2:32 PM Care Teams Food Service Steward Relationship Specialty Start Date End Date Votel, Karson Chacon MD [address] [place] [address] PCP - General Family Practice 04/26/14 Ami Logan AuD Audiology 09/27/11 Stu Astudillo [address] [place] [address] Ophthalmology Ophthalmology Surgery 03/02/13
[2024-08-29 19:00] VITALS: BP 146/88; PULSE 60; RESP 16; TEMP 37.1; O2SAT 97
== END 2024-08-29 19:26 | disposition home or self-care (01) ==
PROVIDERS: Emergency Provider Student in an Organized Health Care Education/Training Program; PCP Family Medicine
DX: S09.90XA Unspecified injury of head, initial encounter (principal); W01.0XXA Fall on same level from slipping, tripping and stumbling without subsequent striking against object, initial encounter
CPT/HCPCS: 70450; 72125; 99283; 99284

== ENCOUNTER 2024-12-06 09:49 | Outpatient (CLI) | payer MEDICARE, BC, SELFPAY ==
--- NOTE | 2024-12-06 10:15 | CRLHL7_ITS ---
For Patients: As a result of the Century Cures Act, medical imaging exams and procedure reports are released immediately into your electronic medical record. You may view this report before your referring provider. If you have questions, please contact your health care provider. Indication: pain Procedure : Informed consent was obtained. The site was marked. Time-out was performed. The skin of the right hip was cleansed with ChloraPrep. A sterile drape was placed. 8 cc of 1 percent lidocaine was administered for superficial anesthesia. Subsequently a 22 gauge spinal needle was introduced into the right hip joint under intermittent fluoroscopic guidance. Injection of 7 cc 1 percent lidocaine and 2 cc 40 milligram/cc Depo-Medrol then injected into the right hip joint. The needle was removed and hemostasis achieved with direct pressure. A dressing was placed. The patient tolerated the procedure well without immediate complication. Total fluoroscopy time 6 seconds. Impression: Successful fluoroscopically guided right hip injection with 80 milligrams of Depo-Medrol. Dictated by Pete Meza MD @ 12/06/2024 3:47:19 PM (Electronically Signed)
--- OUTSIDE RECORDS SUMMARY | 2024-12-07 00:55 | XMS_ITS | Clinical Summary ---
Author Organization [facility] Address [address] [place] [address] Care Team Providers Care Manufacturing Quality Engineer Name Role Phone Ami Logan Unavailable [phone] WildaStu steiner Unavailable Karson Avitia MD [...] 4000mg in 24 hrs. Active medication order composerIndication s:Primary cancer of left breast (HC) Mastectomy Bras and Prosthesis diagnosis breast cancer - 3 Each 2 01/31/20 21 Active triamcinolone (ARISTOCORT; KENALOG) 0.1 % creamIndications:N ummular dermatitis Apply topically to affected area(s) two times daily. Apply topically to affected area twice daily for up to 3 weeks maximum. 453.6 g 1 11/24/19 Active albuterol 0.083% (2.5 mg/3 mL) neb solution Inhale 2.5 mg by mouth. 03/22/20 24 Active albuterol HFA (PRO-AIR; VENTOLIN; PROVENTIL) 90 mcg/actuation inhaler Inhale by mouth. 03/24/20 Active sodium chloride 3% nebulization 3 % nebulizer solution Inhale 4 mL by mouth. 03/22/20 24 Active aspirin chewable 81 mg chewable tablet Chew 81 mg by mouth once every other day. Active Breast ProsthesisIndicati ons:Primary cancer of left breast (HC),H/O left mastectomy For personal use. Left breast ICD-10 Codes: Z90.12 and C50.912 fax to [phone] 3 Each 3 07/10/19 25 Active Post Mastectomy BraIndications:Toyin alexandra cancer of left breast (HC) For personal use. 3 Packet 3 08/07/19 25 Active hydroCHLOROthiazid e 12.5 mg tabletIndications: Edema of left lower extremity Take 1 Tablet (12.5 mg) by mouth once daily. 90 Tablet 3 08/22/19 25 Active atorvastatin (LIPITOR) 40 mg tabletIndications: Hyperlipidemia, unspecified hyperlipidemia type Take 1 Tablet (40 mg) by mouth once daily. 90 Tablet 3 08/22/19 25 Active apixaban (Eliquis) 5 mg tabletIndications: Acute ischemic stroke (HC) Take 1 Tablet (5 mg) by mouth two times daily. 180 Tablet 3 08/22/19 25 Active metoprolol tartrate 50 mg tabletIndications: Ventricular tachycardia (HC) Take 0.5 Tablets (25 mg) by mouth two times daily. 90 Tablet 2 10/24/19 25 Active Active Problems Problem Noted Date Diagnosed Date Stage 3 chronic kidney disea se, unspecified whether stage 3a or 3b CKD 11/20/2024 Non-occlusive coronary artery disease 03/08/2024 Acute ischemic [...] Encounters Date Type Department Care Team Description 11/20/2024 1:40 PM CDT Office Visit [facility] [address] [place] [address] Karson Avitia MD Concerns (Right hip pain, would like an injection) 11/20/2024 Travel 10/22/2024 Refill [facility] [address] [place] [address] Karson Avitia MD Refill Request (Metoprolol Tartrate) 10/10/2024 10:30 AM CDT Office Visit [facility] [address] [place] [address] Mercedes Darling PA Consult (Ear cleaning) 10/10/2024 Travel 10/05/2024 Travel 2024 9:35 AM CDT Office Visit [facility] [address] [place] [address] Karson Avitia MD ER Follow up ([place], [place], 08/29/24); Results (MRI) 2024 Travel from Last 3 Months Immunizations Immunization Administration Dates Next Due AMB Influenza, IIV3 (Age >=3 years)(Flu Clinic Only) 04/02/2008 COVID-19 VACCINE SPIKEVAX (M ODERNA 50MCG/0.5ML) 12YO+ PFS 08/21/2024 COVID-19 vaccine (Xtreme Installs-Bio NTech 30mcg/0.3mL) PFMDV 07/24/2020,07/03/2020 INFLUENZA, IIV3 PF (AGE >= 6 MO) 02/25/2010 Influenza, High-dose Inactivated 024,02/07/2019,02/15/2018,02/25,02/26/2016,03/06/2015,03/05/2015 ,03/04/2014,02/13/2013 Influenza, High-dose Quadriv alent Inactivated 02/22/2023,02/16/2021 Influenza, IIV3 (Age >=3 years) 02/16/20 13,02/18/2012,02/24/2011,02/25,02/24/2009,06/13/2005 Influenza, Inactivated AIIV4 (Age 65+ Years) Preserv Free 02/16/2022 Influenza, Inactivated IIV3 (Age 65+ Years) Preserv Free 02/16/2021,02/07/2019,03/13/2017 Pneumococcal Conj 20-valent (Prevnar 20) 03/22/2024 Pneumococcal Poly,23-Valent (Pneumovax) 10/02/2002,04/18/2002,06/13/1995 Pneumococcal conj 13-Valent [...] or isolated from those around you? 0 11/20/2024 Financial Resource Strain Answer Date R ecorded Difficulty of Paying Living Expenses 3 11/20/2024 Difficulty of Paying Living Expenses Not on file 11/20/2024 Food Insecurity Answer Date Recorded Do you worry your food will run out before you are able to buy more? 1 11/20/2024 Transportation Needs Answer Date Record ed Does lack of transportation keep you from medica l appointments? 1 11/20/2024 Does lack of transportation keep you from work, meetings or getting things that you need? 1 11/20/2024 Housing Stability Answer Date Recorded What is your housing situation today? 1 11/20/2024 Utilities Answer Date Recorded Do you have trouble paying f or utilities (for example, heat, electricity, water, phone)? 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 Not on file Not on file Not [...] Sign Reading Time Taken Comments Blood Pressure 122/71 11/20/2024 1:54 PM CDT Pulse 77 11/20/2024 1:54 PM CDT Temperature 36.3 C (97.4 F) 2024 9:24 AM CDT Respiratory Rate 15 03/06/2024 1:27 PM CDT Oxygen Saturation 100% 11/20/2024 1:54 PM CDT Inhaled Oxygen Concentration - - Weight 61.5 kg (135 lb 9.6 oz) 11/20/2024 1:54 P M CDT Height 161.5 cm (5' 3.6) 11/20/2024 1:54 PM CDT Body Mass Index 23.57 11/20/2024 1:54 PM CDT Plan of Treatment Upcoming Encounters Date Type Department Care Team (Late st Contact Info) Description 04/16/2025 10:00 AM SAWMILL RELIEF WORKER [place] [facility] [address] [place] [address] Tess Chatterjee PA [address] [facility] [place] [address] 09/11/2025 11:00 AM CDT Office Visit [facility] [address] [place] [phone] Mercedes Darling PA [address] [place] [address] Health Maintenance Due Date Last Done Comments Depression screening for age 12+ 08/21/2025 08/21/2024, 08/20/2024, 06/14/2023, Additional history exists Medicare Wellness for age 65+ 08/22/2025 08/21/2024, 06/14/2023, 05/04/2022, Additional history exists BMI (ht and wt on same day) for age 18+ 11/20/2025 11/20/2024, 2024, 08/21/2024, Additional history exists Tetanus booster 07/08/2031 07/08/2021, 11/0 02/2011, 12/25/2008, Additional history exists Zoster (shingles) series for age 50+ Completed 10/21/2017, 08/22/2017, 03/20/2007 DEXA/DXA scan for age 65+ Completed 2019, 03/31/2017, 03/05/2014, Additional history exists Tdap Completed 07/08/2021, 04/21/2011 RSV vaccine for adults or Completed 03/09/2023 Influenza Vaccine Completed 02/20/2024, , 02/16/2021, Additional history exists Pneumococcal series for age 50+ Completed 03/22/2024, 08/19/2014, 10/02/2002, Additional history exists COVID-19 vaccine series Completed 08/22/19 25, 02/20/2024, 09/14/2023, Additional history exists Hepatitis B series for 19+ Aged Out N o longer eligible based on patient's age to complete this topic Procedures Procedure Name Priority Date/Time Associated Diagnosis Comments XR DXA BONE DENSITY 2 SITES AXIAL Routine 04/16/2020 10:57 AM SAWMILL RELIEF WORKER Menopause from Last 3 Months or Most Recently Relevant to Health Maintenance Results * XR DXA BONE DENSITY 2 SITES AXIAL (04/16/2020 10:57 AM SAWMILL RELIEF WORKER) Anatomical Region Laterality Modality Spine, HIPS, HIPL, HIPR Other Narrative 04/23/2020 1:09 PM SAWMILL RELIEF WORKER Please see scanned document for results of this study. Karson Avitia MD DEXA Final Re sult from Last 3 Months or Most Recently Relevant to Health Maintenance Insurance MEDICARE PART B HB ONLY MEDICARE PART A HB ONLY [facility] MEDIC[facility] PB ONLY Advance Directives Documents on File Type Date Recorded Patient Case Monitor Expl anation Healthcare Directive 12/08/2015 11:37 AM Halie LAM, 11/28/2015 * Full Code (Latest Code Status on File) Date Activated Date Inactivated Comments 07/02/2018 11:25 PM 07/06/2018 2:32 PM Care Teams Manufacturing Quality Engineer Relationship Specialty Start Date End Date XanderteKarson wen MD [address] [place] [address] PCP - General Family Practice 04/26/14 Ami Logan AuD Audiology 09/27/11 Stu Astudillo [address] [place] [address] Ophthalmology Ophthalmology Surgery 03/02/13
== END 2024-12-06 09:50 | disposition home or self-care (01) ==
LOC: RAD 09:50
PROVIDERS: PCP Family Medicine; Visit Provider Orthopaedic Surgery Sports Medicine
DX: M16.11 Unilateral primary osteoarthritis, right hip (principal); M25.551 Pain in right hip
CPT/HCPCS: 20610; 77002; J1010

== ENCOUNTER 2025-01-09 09:15 | Outpatient (RCR) | payer MEDICARE, BC, SELFPAY | END 2025-02-08 15:25 | disposition home or self-care (01) | PROVIDERS: PCP Family Medicine; Visit Provider Family Medicine | DX: M25.551 Pain in right hip (principal); M16.11 Unilateral primary osteoarthritis, right hip; Z51.89 Encounter for other specified aftercare | CPT/HCPCS: 97035; 97110; 97161 ==

== ENCOUNTER 2025-03-06 10:07 | Day surgery (SDC) | payer MEDICARE, BC, SELFPAY ==
[2025-03-06] VITALS (28 sets, daily range): BP systolic 76–120; BP diastolic 49–88; PULSE 62–109; RESP 12–18; TEMP 35.7–36.9; O2SAT 92–100; BMI 23.9
--- NOTE | 2025-03-06 | CRLHL7_ITS ---
For Patients: As a result of the Cures Act, medical imaging exams and procedure reports are released immediately into your electronic medical record. You may view this report before your referring provider. If you have questions, please contact your health care provider. Indication: Hip replacement surgery Technique: AP hip fluoroscopic image. Fluoroscopy time 38.3 seconds. 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 Dictated by Pete Meza MD @ 03/08/2025 12:36:31 PM (Electronically Signed)
[2025-03-06] MEDS: TRANEXAMIC ACID 100 MG/ML INJ 1000 MG IV (10:02)
[2025-03-06] MEDS: SODIUM CHLORIDE 0.9 % (FLUSH) 10 ML SYRINGE IVF (11:00)
[2025-03-06] MEDS: OXYCODONE (CR) 10 MG TAB.ER.12H PO (11:00)
[2025-03-06] MEDS: ACETAMINOPHEN 500 MG TABLET 1000 MG PO ×3 (11:00→23:21)
[2025-03-06] MEDS: LACTATED RINGERS 1000 ML 1,000 ML 100 ML IV (11:00)
--- NOTE | 2025-03-06 11:31 | SUR.PREOP ---
TIME?OUT: 1131? PT/RN/MDA?VERIFICATION?OF?SURGICAL?SITE,?PROCEDURE,?AND?CONSENT OBTAINED?PRIOR?TO?INVASIVE?PROCEDURE.
[2025-03-06] MEDS: MIDAZOLAM HCL 1 MG/ML inj IVP (11:35)
--- NOTE | 2025-03-06 12:13 | CRLHL7_ITS ---
For Patients: As a result of the Cures Act, medical imaging exams and procedure reports are released immediately into your electronic medical record. You may view this report before your referring provider. If you have questions, please contact your health care provider. 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 Bone alignment is normal. No sign of acute fracture. Postop changes are within normal limits. Dictated by Pete Meza MD @ 03/08/2025 12:33:29 PM (Electronically Signed)
--- NOTE | 2025-03-06 12:40 | P.NB_ITS ---
Nerve Block Nerve Block Time Seen by Provider: 11:35 Date Seen: 03/06/25 Type of block requested by surgeon for post-operative analgesia: RONAN/LFCN Side: right Time out performed: Yes Verification of patient name: Yes Verification of date of : Yes Site marking: site marked Name of person performing procedure: Tej Continuous monitoring Was continuous monitoring of O2 sat, B/P, gambling monitor, recorded every 15 minutes?: Yes Procedure Checklist: sterile prep, needles and gloves Ultrasound guided. Images saved: Yes Medications given in 5ml increments after negative aspiration: Ropivicaine %: 0.5 mL: 30 Needle gauge: 20 Precedex (mcg): 25 Patient tolerated procedure well: Yes Additional comments: Needle noted below psoas tendon needle noted adjacent to LFCN Block Charges Block Charge (with Pro Fee): Other Periph Nerve Block Use of Ultrasound Machine for Block: Yes- US Guidance/pain block
--- NOTE | 2025-03-06 12:40 | P.ANES_ITS ---
Anesthesia Charges Start Date/Time Anesthesia Start Date: 03/06/25 Anesthesia Start Time: 12:05 Stop Date/Time Anesthesia Stop Date: 03/06/25 Anesthesia Stop Time: 14:05 Summary Extremes of Age - Over 70 or under 1: MDA Coding CPT Codes CPT Codes: ANESTH HIP ARTHROPLASTY - 83658 ([id number]) P4 - PT W/SEV SYS DIS THREAT LIFE, QK - LIGHTING EQUIPMENT OPERATOR 2-4 CNCRNT ANES PROC, QX - LOAN OPERATIONS SPECIALIST SVC W/ MD MED DIRECTION Additional Codes: Summary - Extremes of Age - Over 70 or under 1: MDA ([id number])
--- NOTE | 2025-03-06 12:40 | W.ANESCHARGE ---
Anesthesia Charges Start Date/Time Anesthesia Start Date: 03/06/25 Anesthesia Start Time: 12:05 Stop Date/Time Anesthesia Stop Date: 03/06/25 Anesthesia Stop Time: 14:05 Summary Extremes of Age - Over 70 or under 1: MDA Coding CPT Codes CPT Codes: ANESTH HIP ARTHROPLASTY - 52317 ([id number]) P4 - PT W/SEV SYS DIS THREAT LIFE, QK - FISHING ROD TRIMMER 2-4 CNCRNT ANES PROC, QX - APIGEE DEVELOPER SVC W/ MD MED DIRECTION Additional Codes: Summary - Extremes of Age - Over 70 or under 1: MDA ([id number])
--- NOTE | 2025-03-06 13:31 | PM.ORPRC ---
Procedure Note Date of procedure: 03/06/25 Procedure: PREOPERATIVE DIAGNOSIS: 1. Right hip osteoarthritis, severe, primary POSTOPERATIVE DIAGNOSIS: 1. Right hip osteoarthritis, severe, primary PROCEDURE: 1. Right total hip arthroplasty-anterior approach 2. Intraoperative fluoroscopy interpreted by Rafy Cameron M.D. for intraoperative evaluation of right total hip arthroplasty implant location, alignment, positioning, leg length evaluation real-time. Fluoroscopy time was 38.3 seconds. SURGEON: Rafy Cameron MD. LEGAL COMPLIANCE OFFICER: Juan Antonio Brand PA-C; PUSHPA Salvador - Of note, a skilled billing and accounting staff assistant was critical for this case to aid in patient positioning, tissue retraction, limb manipulation/positioning, and closure. ANESTHESIA: Spinal anesthetic EBL: 400 mL IMPLANTS: DePuy J&J uncemented total hip [place] cup size 48, hole eliminator, +0 neutral liner Actis stem, high offset, size 5 +5 mm ceramic 32mm head COMPLICATIONS: None evident INDICATIONS: The patient is a pleasant 89-year-old female who has experienced severe right hip pain and difficulty bearing weight. Workup included x-rays which revealed severe osteoarthrosis in the hip. Given the deformity, the dysfunction, and the pain, as well as the failure of nonoperative management, recommendation was made for surgery. FINDINGS: Full-thickness chondral loss diffusely throughout the femoral head. Osteophytes around the femoral head/neck junction. Large effusion upon entering the joint DESCRIPTION OF PROCEDURE: Following a thorough discussion of risks, benefits, and alternatives consent was obtained and the right hip was marked. The patient was brought to the operating room and placed supine on the operating table. Induction of anesthesia was undertaken. 1 g IV Ancef and 1 g tranexamic acid was administered within 1 hr of incision preoperatively. Proper time-out was performed identifying proper patient, site, procedure. The operative extremity was prepped and draped in the appropriate sterile fashion using ChloraPrep after the patient was positioned on the [place] table with head in neutral alignment and all bony prominences well padded. C-arm fluoroscopic imaging was utilized to confirm proper pelvis rotation and position, and to get true AP films of both the contralateral left, and the affected right hip. This is for comparison. A longitudinal incision was made starting approximately 1 cm distal to the ASIS, and 2-3 cm lateral. The incision was extended distally aiming toward the fibular head. Sharp incision through skin and bovie cautery through the subcutaneous tissue allowed identification of the TFL fascia. This was sharply divided, and the fascia bluntly released from the muscle fibers as we dissected medial. Upon coming to the medial border, we were able to retract the TFL laterally, and penetrated the deeper fascia and identify the crossing circumflex vessels. These were ligated/cauterized. The rectus was elevated from the capsule, and retractors placed laterally and medially along the femoral neck to help with visualization of the capsule. We then performed an inverted T capsulotomy. The capsule was tagged for later repair. Retractors were placed inside the capsule. The femoral neck was visualized after releasing medially down to the lesser trochanter, along the saddle laterally, and up onto the acetabulum. The femoral neck cut was made in line with our preoperative templating. The head was removed in a single piece, and sized. We turned our attention to acetabular preparation. Initially, the labrum was resected from around the perimeter, the pulvinar was excised, allowing us to visualize the false wall. We started the reaming with a 43 mm reamer. This was medialized down to the true wall. We then enlarged our reamers sequentially up to one size less than the selected cup size. We trialed at the same size and found it to have an excellent fit. The selected cup was then opened, inserted, and impacted in line with the goal of 40? of abduction, and 20-25? of anteversion. This was confirmed on C-arm fluoroscopic imaging to be in the appropriate/goal position. Once the cup was placed we placed a hole eliminator and a liner consistent with preop planning. Attention was turned to the femoral preparation. The limb was extended, externally rotated, and adducted. The posteromedial capsule was released, as retractors were placed allowing excellent access to the proximal femur. Initially a coin box collector was followed by canal finder followed by various broaches. We broached sequentially up to the size noted above, found it to have excellent rotational control, and trialing various heads and necks, revealed that appropriate neck offset, and the above noted head size provided the greatest stability, and congregation of length, and offset. C-arm fluoroscopic imaging confirmed position of the stem, as well as leg lengths, which were compared with the pre procedure all fluoroscopic images. Trial implants were removed, the real femoral stem inserted, as was the appropriate head. After reducing, the leg was placed through range of motion and stability was confirmed anterior, posterior, and lateral. A 3 min Betadine soak was then performed, and thorough irrigation with normal saline followed. Closure of the capsule was performed with #1 PDS. Bleeding was confirmed to be controlled at this stage, and the TFL fascia was closed with #0 strata fix. Subcutaneous, and subcuticular closure was performed with 2-0 Stratafix and 4-0 Stratafix, respectively. Dressings were applied, and the patient was awoken from anesthesia and transferred the PACU in stable condition. A skilled billing and accounting staff assistant was critical for this case to aid in patient positioning, tissue retraction, acetabular and proximal femoral exposure, limb manipulation/positioning, dislocation/relocation, patient safety, and closure. PLAN: 1. Weight bear as tolerated operative extremity. 2. 23 hr perioperative antibiotics. 3. Ice. 4. PT/OT consults for ambulation assistance/mobility education. 5. Social work consult for discharge planning. 6. [facility] and she will return to her Eliquis use.
--- NOTE | 2025-03-06 13:31 | W.PM.H&PU ---
History & Physical Update History & Physical Update H&P Reviewed and patient assessed: No changes noted
--- NOTE | 2025-03-06 14:12 | P.ANES_ITS ---
Anesthesia Charges Start Date/Time Anesthesia Start Date: 03/06/25 Anesthesia Start Time: 12:05 Stop Date/Time Anesthesia Stop Date: 03/06/25 Anesthesia Stop Time: 14:05 Summary Extremes of Age - Over 70 or under 1: BUTTON TUFTER Coding CPT Codes CPT Codes: ANESTH HIP ARTHROPLASTY - 42707 ([id number]) P4 - PT W/SEV SYS DIS THREAT LIFE, QK - PRODUCTIVITY ENGINEER 2-4 CNCRNT ANES PROC, QX - BUTTON TUFTER SVC W/ MD MED DIRECTION Additional Codes: Summary - Extremes of Age - Over 70 or under 1: BUTTON TUFTER ([id number])
--- NOTE | 2025-03-06 14:12 | W.ANESCHARGE ---
Anesthesia Charges Start Date/Time Anesthesia Start Date: 03/06/25 Anesthesia Start Time: 12:05 Stop Date/Time Anesthesia Stop Date: 03/06/25 Anesthesia Stop Time: 14:05 Summary Extremes of Age - Over 70 or under 1: WAREHOUSE STOCKER Coding CPT Codes CPT Codes: ANESTH HIP ARTHROPLASTY - 75764 ([id number]) P4 - PT W/SEV SYS DIS THREAT LIFE, QK - DRAFTING SUPERVISOR 2-4 CNCRNT ANES PROC, QX - WAREHOUSE STOCKER SVC W/ MD MED DIRECTION Additional Codes: Summary - Extremes of Age - Over 70 or under 1: WAREHOUSE STOCKER ([id number])
[2025-03-06] MEDS: LACTATED RINGERS 1000 ML 1,000 ML 150 ML IV (14:31)
--- NOTE | 2025-03-06 15:15 | PC.SOCIAL ---
Discharge planning: SW met with patient's three children to discuss need for TCU stay. Patient's daughter Sandie states that she was informed by patient's OP provider that if patient couldn't get up on her own normally that she would automatically need three nights in the hospital and get Medicare coverage for TCU. SW explained that all is dependent on how patient recovers, when patient is deemed medically ready, and OT/PT assessment. SW discussed that if patient is medically ready prior to a three night Medicare approved stay, that patient would have to private pay for TCU. Patient's children state they think they would want [facility], but if they don't have a bed would maybe want places in [place] or [place]. SW informed that we won't know anymore information about what patient will need until tomorrow when assessed by the providers and OT/PT. Family had no other questions at this time. SW to continue to assist with discharge planning needs.
--- NOTE | 2025-03-06 18:18 | PM.IMCN1 ---
Date of Consult Patient: Leo Patient Consult date: 03/06/25 Requesting Physician: Orthopedics Primary Care Provider: Karson Avitia MD Consult Narrative Narrative: Antoinette Dumont is a 89 year old female with history of stroke, AFib, history of DVT, hypertension, pulmonary sarcoidosis admitted to the hospital for right total hip arthroplasty. Procedure performed by Dr. Cameron. He requests consultation for management of medical problems. Estimated blood loss intraoperatively 400 mL. She has been disabled by hip pain. She had MRI of the back an they hip to evaluate for the cause of the pain. She also received a steroid injection into her hip in November which gave good relief for about a week and then quit helping her pain. Postop patient is seen with family. She reports no concerns including no hip pain at the time I see her. She reports no recent illness or injury. Preoperatively there was concern about her AFib. She had an increase in her metoprolol to 50 mg b.i.d. temporarily to improve rate control but she seemed to get worsening diarrhea so she was cut back to metoprolol 25 b.i.d. starting yesterday evening. Diarrhea has been 1 loose stool in the morning only. No bleeding. She has had previous DVT and also AFib for which she is on apixaban chronically. She is also on aspirin daily. Aspirin is been held for 11 days and apixaban has been held for 4 days, last dose March 02 evening. She had an echocardiogram obtained 02/21/2025. This was notable for a preserved ejection fraction of 58% and moderate to severe mitral regurgitation. No other valvular disease or significant structural abnormalities. She reports no significant heart failure/respiratory symptoms. She is relatively sedentary however. She is currently living in a town home in [place]. She is independent. Family has made arrangements for her to moved to assisted living in [place]. Because of previous stroke and hip arthritis she has been relatively disabled and there is concern that she may need further rehabilitation prior to returning to independent living at her current home or future Assisted Living. Review of Systems Narrative: No other recent illness or injury. [facility] Medical History (Updated 03/06/25 @ 18:31 by Mani Garcia MD) History of CVA (cerebrovascular accident) ?Z86.73 - Personal history of transient ischemic attack (TIA), and cerebral infarction without residual deficits (ICD-10) History of DVT (deep vein thrombosis) ?Z86.718 - Personal history of other venous thrombosis and embolism (ICD-10) Osteoarthritis of right hip ?M16.11 - Unilateral primary osteoarthritis, right hip (ICD-10) Frequent falls ?R29.6 - Repeated falls (ICD-10) Conjunctivitis ?H10.9 - Unspecified conjunctivitis (ICD-10) 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 - Sarcoidosis of lung (ICD-10) 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 ?I63.411 - Cerebral infarction due to embolism of right middle cerebral artery (ICD-10) Hypertension ?I10 - Essential (primary) hypertension (ICD-10) Obstructive sleep apnea ?G47.33 - Obstructive sleep apnea (adult) (pediatric) (ICD-10) Coronary artery disease ?I25.10 - Atherosclerotic heart disease of [place] coronary artery without angina pectoris (ICD-10) Mitral regurgitation ?I34.0 - Nonrheumatic mitral (valve) insufficiency (ICD-10) Breast cancer ?C50.919 - Malignant neoplasm of unspecified site of unspecified female breast (ICD-10) Bronchiectasis ?J47.9 - Bronchiectasis, uncomplicated (ICD-10) Chronic anticoagulation ?Z79.01 - halfway (current) use of anticoagulants (ICD-10) Hyperlipidemia ?E78.5 - Hyperlipidemia, unspecified (ICD-10) Surgical History (Updated 03/06/25 @ 18:29 by Mani Garcia MD) History of total right hip replacement (03/06/25) ?Z96.641 - Presence of right artificial hip joint (ICD-10) History of phacoemulsification of cataract of both eyes with intraocular lens implantation ?Z98.41 - Cataract extraction status, right eye (ICD-10) ?Z98.42 - Cataract extraction status, left eye (ICD-10) ?Z96.1 - Presence of intraocular lens (ICD-10) History of total abdominal hysterectomy and bilateral salpingo-oophorectomy ?Z90.710 - Acquired absence of both cervix and uterus (ICD-10) ?Z90.722 - Acquired absence of ovaries, bilateral (ICD-10) ?Z90.79 - Acquired absence of other genital organ(s) (ICD-10) History of cholecystectomy ?Z90.49 - Acquired absence of other specified parts of digestive tract (ICD-10) History of bladder repair surgery ?Z98.890 - Other specified postprocedural states (ICD-10) History of appendectomy ?Z90.49 - Acquired absence of other specified parts of digestive tract (ICD-10) H/O mastectomy ?Z90.10 - Acquired absence of unspecified breast and nipple (ICD-10) Family History Mother Bright's disease Father Heart disease Social History (Updated 03/06/25 @ 18:25 by Mani Garcia MD) Narrative: She lives in [place]. She lives independently in a town home in [place]. She indicates that her 2 daughters, Sandie and Kendal and her son Sanjeev would be healthcare power of employment law attorney. Code status is DNR. She does not smoke. She drinks alcohol about once a week What is your current living situation?: I presently have a place to live Problems where you live: no known problems Problems where you live details: none In the past 12 months, utilities in danger of being shut off: no In past 12 months, lack of transportation kept you from medical appts, meetings, work, or getting things needed for daily living: no In the past 12 mos, have been you worried that your food would run out before you had money to buy more?: never true In the past 12 mos, the food you bought just didn't last and you didn't have money to buy more?: never true Highest level of school completed/degree received: Master's degree Smoking Status: Never smoker Do you use any of these nicotine containing products: None Second hand tobacco smoke exposure: No How often do you have a drink containing alcohol: monthly or less Alcohol type: hard liquor How many standard drinks containing alcohol do you have on a typical day: 1 or 2 How often do you have six or more drinks on one occasion: Never AUDIT-C Alcohol total score: 1 Non-prescribed substance use: denies use Caffeine: Yes How often does anyone, including family, friends and others, physically hurt you: never How often does anyone, including family, friends and others, insult or talk down to you: never How often does anyone, including family, friends and others, threaten you with harm: never How often does anyone, including family, friends and others, scream or curse at you: never service: No Meds Home Medications and Allergies Home Medications ?Medication ?Instructions ?Recorded ?Confirmed ?Type apixaban 5 mg tablet (Eliquis) 5 mg PO BID 02/23/22 03/06/25 History atorvastatin 40 mg tablet 40 mg PO DAILY 02/23/22 03/06/25 History hydrochlorothiazide 12.5 mg tablet 12.5 mg PO DAILY 02/23/22 03/06/25 History metoprolol tartrate 50 mg tablet 25 mg PO BID 02/23/22 03/06/25 History albuterol sulfate 2.5 mg/3 mL 2.5 mg inhalation Q6H PRN 03/25/24 03/06/25 History (0.083 %) solution for nebulization carboxymethylcellulose sodium 1 % 1 drp ophthalmic (eye) Q1H PRN 03/25/24 03/06/25 History eye liquid gel drops triamcinolone acetonide 0.1 % 1 applic topical BID PRN 03/25/24 03/06/25 History topical cream zinc sulfate 50 mg zinc (220 mg) 50 mg PO 2XW 03/25/24 03/06/25 History capsule Walker- 4 Wheels #1 ea 05/30/24 01/25/25 Rx albuterol sulfate 90 mcg/actuation 2 puff inhalation Q4H PRN wheezing 05/30/24 03/06/25 History aerosol inhaler aspirin 81 mg tablet,delayed 81 mg PO Q48H 05/30/24 03/06/25 History release (Adult Aspirin Regimen) calcium 600 mg (as 1 tab PO BID 05/30/24 03/06/25 History carbonate)-vitamin D3 10 mcg (400 unit) tablet (Calcium 600 + D(3)) acetaminophen 500 mg tablet 1,000 mg PO Q6H PRN 03/06/25 03/06/25 History (Acetaminophen Extra Strength) polysorbate 80-glycerin 1 %-1 % drp ophthalmic (eye) 03/06/25 History eye drops in a dropperette Allergies Allergy/AdvReac Type Severity Reaction Status Date / Time penicillin G Allergy Unknown Verified 03/06/25 11:31 Sulfa (Sulfonamide Allergy Unknown Verified 03/06/25 11:31 Antibiotics) Exam Narrative: Exam Narrative: She is lying in bed with multiple blankets and González Hugger on her. She reports that she is feeling warmer but is still cool to touch in the hands and feet. No facial asymmetry. Eyes normal. Oropharynx with dry mucous membranes. Neck is supple without mass or adenopathy. Respirations are clear to auscultation without wheezing rales or rhonchi. Cardiovascular: S1, S2, irregularly irregular. Distant heart sounds. Abdomen: Bowel sounds active. Abdomen is soft without tenderness. Right hip is unremarkable with dressing over the incision no marked erythema or bruising. Distally she has cool extremities, intact pulses, trace edema in her legs and intact strength and motion and sensation in both feet and ankles. Const: Vital Signs, click to edit/add: Vital Signs - 24 hr 03/06/25 10:56 03/06/25 11:35 03/06/25 11:40 Temperature 98.4 F Pulse Rate 93 88 102 H Pulse Rate [Left P ulse Oximeter] Pulse Rate [Right Pulse Oximeter] Respiratory Rate 16 16 16 Blood Pressure 120/80 107/64 90/72 Blood Pressure [Ri ght Arm] Pulse Oximetry 99 100 95 Oxygen Delivery Me thod Room Air Nasal Cannula Nasal Cannula Oxygen Flow Rate 2 2 03/06/25 11:45 03/06/25 11:50 03/06/25 14:00 Temperature 98.2 F Pulse Rate 98 86 84 Pulse Rate [Left P ulse Oximeter] Pulse Rate [Right Pulse Oximeter] Respiratory Rate 16 16 12 Blood Pressure 79/55 L 76/49 L 85/53 L Blood Pressure [Ri ght Arm] Pulse Oximetry 100 100 100 Oxygen Delivery Me thod Nasal Cannula Nasal Cannula OxyMask Oxygen Flow Rate 2 2 10 03/06/25 14:05 03/06/25 14:10 03/06/25 14:15 Temperature 98.4 F Pulse Rate 87 75 83 Pulse Rate [Left P ulse Oximeter] Pulse Rate [Right Pulse Oximeter] Respiratory Rate 12 14 14 Blood Pressure 86/53 L 107/77 105/63 Blood Pressure [Ri ght Arm] Pulse Oximetry 100 100 100 Oxygen Delivery Me thod OxyMask OxyMask OxyMask Oxygen Flow Rate 10 6 6 03/06/25 14:20 03/06/25 14:25 03/06/25 14:30 Temperature 98.3 F Pulse Rate 75 76 80 Pulse Rate [Left P ulse Oximeter] Pulse Rate [Right Pulse Oximeter] Respiratory Rate 14 14 14 Blood Pressure 89/59 L 112/78 117/74 Blood Pressure [Ri ght Arm] Pulse Oximetry 100 98 96 Oxygen Delivery Me thod Room Air Room Air Room Air Oxygen Flow Rate 03/06/25 14:35 03/06/25 14:40 03/06/25 14:45 Temperature 98.3 F 96.3 F L Pulse Rate 81 87 Pulse Rate [Left P ulse Oximeter] Pulse Rate [Right Pulse Oximeter] 96 Respiratory Rate 12 12 16 Blood Pressure 112/73 Blood Pressure [Ri ght Arm] 101/58 L Pulse Oximetry 98 96 96 Oxygen Delivery Me thod Room Air Room Air Room Air Oxygen Flow Rate 03/06/25 15:00 03/06/25 15:15 03/06/25 15:30 Temperature 96.3 F L Pulse Rate Pulse Rate [Left P ulse Oximeter] Pulse Rate [Right Pulse Oximeter] 72 78 62 Respiratory Rate 16 Blood Pressure Blood Pressure [Ri ght Arm] 106/57 L 106/57 L 88/58 L Pulse Oximetry 96 96 97 Oxygen Delivery Me thod Room Air Room Air Room Air Oxygen Flow Rate 03/06/25 15:45 03/06/25 15:51 03/06/25 15:51 Temperature Pulse Rate Pulse Rate [Left P ulse Oximeter] 96 Pulse Rate [Right Pulse Oximeter] 72 Respiratory Rate 16 16 Blood Pressure Blood Pressure [Ri ght Arm] 104/77 Pulse Oximetry 92 96 Oxygen Delivery Me thod Room Air Room Air Oxygen Flow Rate 03/06/25 16:15 03/06/25 16:45 Temperature 96.5 F L Pulse Rate Pulse Rate [Left P ulse Oximeter] Pulse Rate [Right Pulse Oximeter] 80 79 Respiratory Rate 16 16 Blood Pressure Blood Pressure [Ri ght Arm] 113/63 106/69 Pulse Oximetry 98 97 Oxygen Delivery Me thod Room Air Room Air Oxygen Flow Rate Documenting provider has reviewed patient's vital signs: yes Assessment and Plan Assessment and plan (1) History of total right hip replacement: Problem comment: Right total hip arthroplasty-anterior approach. Dr. Cameron, 03/06/25. 400 mL blood loss. Check CBC in a.m. Status: Acute (2) Frequent falls: Problem comment: Multifactorial. Therapy to evaluate. May need rehab stay prior to returning home. Status: Acute (3) Bronchiectasis with acute lower respiratory infection: Problem comment: Currently no significant respiratory problems. Status: Acute (4) Pulmonary sarcoidosis: Problem comment: -reviewed pulm note dated 03/22/24; Dr. Marie. Recommended albuterol nebs, hypertonic saline with illness, low threshold to treat for a bronchiectasis with pseudomonas coverage Status: Acute (5) Chronic anticoagulation: Problem comment: On apixaban for recent CVA, suspected but not confirmed atrial fibrillation and remote history of DVT Status: Acute (6) History of DVT (deep vein thrombosis): Problem comment: On chronic apixaban for AFib. Resume apixaban in the morning Status: Acute (7) History of CVA (cerebrovascular accident): Problem comment: 03/24/24 with symptoms of transient speech difficulty, left arm heaviness and difficulty with writing (she is left handed). -multiple foci of diffusion restriction consistent with acute and subacute infarcts noted in the right superior frontal and parietal lobes by MRI -aspirin, Eliquis, statin. She has completed OT and PT outpatient Status: Acute (8) Hypertension: Problem comment: -hydrochlorothiazide, metoprolol. Hold hydrochlorothiazide postop until blood pressure improves. Continue metoprolol for rate control if blood pressure allows Status: Acute (9) Postoperative hypotension: Problem comment: Postoperatively blood pressure is relatively soft. Hold hydrochlorothiazide. Continue metoprolol for rate control as tolerated. Status: Acute Plan 89-year-old female admitted to the hospital following right hip arthroplasty for postoperative management of pain, therapy, monitoring of chronic medical problems. Based on clinical course further assessment for ongoing outpatient rehab verses SNF. Monitor chronic medical problems and chronic medications while hospitalized.
[2025-03-06] MEDS: CEFAZOLIN 1 GM in 0.9 % SODIUM CHLORIDE Mini-bag 100 ML IVPB (18:26)
--- NOTE | 2025-03-06 18:56 | PC.NURSE ---
End of Shift Note 256? ? Patient has been very pleasant and cooperative throughout shift. RTHA on 03/06/2025. Surgical dressing intact and dry. Patient?s diet advanced slowly as her throat is still irritated. Patient has not reported any pain or discomfort during this shift. Able to move toes and she states, ?feeling is back?. She has not yet voided as of 19:00 today. VSS. Afebrile. A&Ox4. Accompanied by her two daughters and son for most of the day.?
[2025-03-06] MEDS: SENNOSIDES 1 TAB TABLET 2 TAB PO (21:14)
[2025-03-06] MEDS: ONDANSETRON 2 MG/ML inj 4 MG IVP (21:15)
[2025-03-07] MEDS: CEFAZOLIN 1 GM in 0.9 % SODIUM CHLORIDE Mini-bag 100 ML IVPB (02:16)
[2025-03-07] MEDS: ACETAMINOPHEN 500 MG TABLET 1000 MG PO ×2 (05:38→13:07)
[2025-03-07 05:44] VITALS: BP 97/78; PULSE 107; RESP 17; O2SAT 97
[2025-03-07 06:19] LABS: Hematocrit* 35.8 % (33.0-51.0); Hemoglobin* 11.8 gm/dL (12.0-16.0); Immature Granulocytes Pct Auto 0.8 %; Mean Corpuscular HGB Conc 33 gm/dL (32-36); Mean Corpuscular Hemoglobin 30 pg (26-34); Mean Corpuscular Volume 91 fL (80-100); RDW Coefficient of Variation % 12.3 % (11.5-15.5); Red Blood Count* 3.92 m/uL (4.00-5.20); White Blood Count* 11.65 K/uL (4.50-11.00)
[2025-03-07 06:23] LABS: Immature Granulocytes Abs Auto 0.10 K/uL (0.00-0.30); Lymphocytes Absolute Auto 1.40 K/uL (0.90-2.90); Slide Review Reflex No
--- NOTE | 2025-03-07 06:35 | PC.NURSE ---
Pt is alert and oriented. VSS. Denies pain but has been taking scheduled Tylenol and using ice packs. Pt is 1 assist w/ walker. Saline lock.
[2025-03-07 07:06] LABS: Chloride* 97 mmol/L (96-114); Sodium* 132 mmol/L (135-149)
[2025-03-07 07:07] LABS: Potassium* 4.0 mmol/L (3.6-5.1)
[2025-03-07 07:09] LABS: Blood Urea Nitrogen* 24 mg/dL (7-30); Creatinine* 0.8 mg/dL (0.5-1.5); Est. Creatinine Clearance* 32.17; Estimated Glomerular Filt Rate 71 ml/min
[2025-03-07 07:10] LABS: Anion Gap 8 mEq/L (7-15); Calcium* 8.9 mg/dL (8.4-10.6); Carbon Dioxide* 27 mmol/L (20-32); Glucose* 145 mg/dL (60-115)
[2025-03-07 08:00] VITALS: PULSE 80; RESP 18; O2SAT 99
[2025-03-07 08:08] VITALS: BP 117/90; PULSE 80; RESP 18; O2SAT 99
[2025-03-07] MEDS: APIXABAN 5 MG TABLET PO (08:47)
[2025-03-07] MEDS: SENNOSIDES 1 TAB TABLET 2 TAB PO (08:47)
[2025-03-07] MEDS: ATORVASTATIN CALCIUM 40 MG TABLET PO (08:48)
[2025-03-07] MEDS: METOPROLOL TARTRATE 50 MG TABLET 25 MG PO (08:48)
--- NOTE | 2025-03-07 11:12 | P.ORPN_ITS ---
Subjective Subjective Date Seen: 03/07/25 Principal diagnosis: Status postop day 1, right total hip arthroplasty - anterior approach Interval history: Patient reports doing well overall; did not get good sleep last night, which was not due to pain. No acute events over night. Pain managed with scheduled and PRN medications, ice. DVT prophylaxis: Eliquis 5 mg twice daily, SCDs, walking. Denies fevers, chills, aches, N/V, CP, SOB/N[place]. No significant lightheadedness or dizziness when walking. Requiring assistive of 2 for bathroom use. Both daughters of the patient are in the room during our visit. They expressed concern for patient's strength issues, which was a concern prior to surgery. They believe patient should remain in hospital for 3 days until she can be transitioned to a transitional care facility/SNF as the assisted living location which she will be eventually moving to cannot accommodate for her postoperative needs. Ortho Exam Narrative Exam Narrative: -Patient appears comfortable in bed; no apparent acute distress -Alert and oriented times 3 -Operative hip mildly swollen; soft tissues supple; no obvious erythema. Ecchymosis minimal. Warmth appropriate -Surgical dressing clean, dry, intact; no obvious drainage, no erythematous streaking peripheral to the bandage -Bilateral calves soft and supple; no significant swelling, edema, tenderness, erythema, discoloration, warmth, or palpable cords -2+ DP/PT pulses, intact dermatomes and myotomes distally (5/5 strength). No numbness about the lateral femoral cutaneous nerve distribution. Const Vital Signs, click to edit/add: Vital Signs - 24 hr 03/06/25 11:35 03/06/25 11:40 03/06/25 11:45 Temperature Pulse Rate 88 102 H 98 Pulse Rate [Left Pulse Oximeter] Pulse Rate [Right Pulse Oximeter] Pulse Rate [Right Radial] Respiratory Rate 16 16 16 Blood Pressure 107/64 90/72 79/55 L Blood Pressure [Right Arm] Pulse Oximetry 100 95 100 Oxygen Delivery Method Nasal Cannula Nasal Cannula Nasal Cannula Oxygen Flow Rate 2 2 2 03/06/25 11:50 03/06/25 14:00 03/06/25 14:05 Temperature 98.2 F Pulse Rate 86 84 87 Pulse Rate [Left Pulse Oximeter] Pulse Rate [Right Pulse Oximeter] Pulse Rate [Right Radial] Respiratory Rate 16 12 12 Blood Pressure 76/49 L 85/53 L 86/53 L Blood Pressure [Right Arm] Pulse Oximetry 100 100 100 Oxygen Delivery Method Nasal Cannula OxyMask OxyMask Oxygen Flow Rate 2 10 10 03/06/25 14:10 03/06/25 14:15 03/06/25 14:20 Temperature 98.4 F Pulse Rate 75 83 75 Pulse Rate [Left Pulse Oximeter] Pulse Rate [Right Pulse Oximeter] Pulse Rate [Right Radial] Respiratory Rate 14 14 14 Blood Pressure 107/77 105/63 89/59 L Blood Pressure [Right Arm] Pulse Oximetry 100 100 100 Oxygen Delivery Method OxyMask OxyMask Room Air Oxygen Flow Rate 6 6 03/06/25 14:25 03/06/25 14:30 03/06/25 14:35 Temperature 98.3 F Pulse Rate 76 80 81 Pulse Rate [Left Pulse Oximeter] Pulse Rate [Right Pulse Oximeter] Pulse Rate [Right Radial] Respiratory Rate 14 14 12 Blood Pressure 112/78 117/74 Blood Pressure [Right Arm] Pulse Oximetry 98 96 98 Oxygen Delivery Method Room Air Room Air Room Air Oxygen Flow Rate 03/06/25 14:40 03/06/25 14:45 03/06/25 15:00 Temperature 98.3 F 96.3 F L 96.3 F L Pulse Rate 87 Pulse Rate [Left Pulse Oximeter] Pulse Rate [Right Pulse Oximeter] 96 72 Pulse Rate [Right Radial] Respiratory Rate 12 16 16 Blood Pressure 112/73 Blood Pressure [Right Arm] 101/58 L 106/57 L Pulse Oximetry 96 96 96 Oxygen Delivery Method Room Air Room Air Room Air Oxygen Flow Rate 03/06/25 15:15 03/06/25 15:30 03/06/25 15:45 Temperature Pulse Rate Pulse Rate [Left Pulse Oximeter] Pulse Rate [Right Pulse Oximeter] 78 62 72 Pulse Rate [Right Radial] Respiratory Rate 16 Blood Pressure Blood Pressure [Right Arm] 106/57 L 88/58 L 104/77 Pulse Oximetry 96 97 92 Oxygen Delivery Method Room Air Room Air Room Air Oxygen Flow Rate 03/06/25 15:51 03/06/25 15:51 03/06/25 16:15 Temperature Pulse Rate Pulse Rate [Left Pulse Oximeter] 96 Pulse Rate [Right Pulse Oximeter] 80 Pulse Rate [Right Radial] Respiratory Rate 16 16 Blood Pressure Blood Pressure [Right Arm] 113/63 Pulse Oximetry 96 98 Oxygen Delivery Method Room Air Room Air Oxygen Flow Rate 03/06/25 16:45 03/06/25 17:45 03/06/25 18:45 Temperature 96.5 F L 96.5 F L Pulse Rate Pulse Rate [Left Pulse Oximeter] 81 75 Pulse Rate [Right Pulse Oximeter] 79 Pulse Rate [Right Radial] Respiratory Rate 16 18 18 Blood Pressure Blood Pressure [Right Arm] 106/69 113/88 93/65 Pulse Oximetry 97 98 97 Oxygen Delivery Method Room Air Room Air Room Air Oxygen Flow Rate 03/06/25 19:36 03/06/25 20:36 03/06/25 23:00 Temperature 97.7 F 97.2 F L Pulse Rate Pulse Rate [Left Pulse Oximeter] 99 Pulse Rate [Right Pulse Oximeter] 109 H Pulse Rate [Right Radial] Respiratory Rate 17 18 Blood Pressure Blood Pressure [Right Arm] 101/80 93/56 L Pulse Oximetry 94 96 97 Oxygen Delivery Method Room Air Room Air Room Air Oxygen Flow Rate 03/06/25 23:32 03/07/25 05:44 03/07/25 08:00 Temperature 97.6 F Pulse Rate Pulse Rate [Left Pulse Oximeter] 80 107 H Pulse Rate [Right Pulse Oximeter] 80 Pulse Rate [Right Radial] Respiratory Rate 17 17 18 Blood Pressure Blood Pressure [Right Arm] 101/65 97/78 Pulse Oximetry 97 97 Oxygen Delivery Method Room Air Room Air Oxygen Flow Rate 03/07/25 08:00 03/07/25 08:08 Temperature Pulse Rate Pulse Rate [Left Pulse Oximeter] Pulse Rate [Right Pulse Oximeter] Pulse Rate [Right Radial] 80 Respiratory Rate 18 18 Blood Pressure Blood Pressure [Right Arm] 117/90 H Pulse Oximetry 99 99 Oxygen Delivery Method Room Air Room Air Oxygen Flow Rate Assessment and Plan Assessment and plan (1) History of total right hip replacement: Problem details: Right total hip arthroplasty-anterior approach. Dr. Cameron, 03/06/25. 400 mL blood loss. Check CBC in a.m. Status: Acute (2) Frequent falls: Problem details: Multifactorial. Therapy to evaluate. May need rehab stay prior to returning home. Status: Acute (3) Bronchiectasis with acute lower respiratory infection: Problem details: Currently no significant respiratory problems. Status: Acute (4) Pulmonary sarcoidosis: Problem details: -reviewed pulm note dated 03/22/24; Dr. Marie. Recommended albuterol nebs, hypertonic saline with illness, low threshold to treat for a bronchiectasis with pseudomonas coverage Status: Acute (5) Chronic anticoagulation: Problem details: On apixaban for recent CVA, suspected but not confirmed atrial fibrillation and remote history of DVT Status: Acute (6) History of DVT (deep vein thrombosis): Problem details: On chronic apixaban for AFib. Resume apixaban in the morning Status: Acute (7) History of CVA (cerebrovascular accident): Problem details: 03/24/24 with symptoms of transient speech difficulty, left arm heaviness and difficulty with writing (she is left handed). -multiple foci of diffusion restriction consistent with acute and subacute infarcts noted in the right superior frontal and parietal lobes by MRI -aspirin, Eliquis, statin. She has completed OT and PT outpatient Status: Acute (8) Hypertension: Problem details: -hydrochlorothiazide, metoprolol. Hold hydrochlorothiazide postop until blood pressure improves. Continue metoprolol for rate control if blood pressure allows Status: Acute (9) Postoperative hypotension: Problem details: Postoperatively blood pressure is relatively soft. Hold hydrochlorothiazide. Continue metoprolol for rate control as tolerated. Status: Acute Plan - Complete 23 hour perioperative antibiotics. - PT/OT consult for education and assistance. - Social work consult for discharge planning - Prescribed analgesics as needed - please minimize oxycodone use; she will likely never needed 10 mg oxycodone for pain - DVT prophylaxis: Eliquis, walking, and SCDs - Discharge is unclear at this time. Reportedly patient's family was prepared to take care patient of patient at her home until she was strong enough to transition to her assisted living location. This was all discussed and c onfirmed prior to surgery. During her visit today, I did not get the sense that this was possible. Thus, discharge at this time is pending patient's safe mobility status, and family's care taking plan. We would appreciate social workers involvement in this matter.
[2025-03-07 13:00] VITALS: BP 117/72; PULSE 84; RESP 18
--- NOTE | 2025-03-07 14:21 | PC.NURSE ---
Nursing Care Hours: [id number] Pt this shift calm and cooperative, alert and oriented. Pain reported with movement and activity. Otherwise tolerating pain with PO acetaminophen. Oxycodone given prior to PT and discharge. IV removed for discharge. Instructions went over with pt daughters in the room. All questions and concerns addressed. Pt wheeled out to vehicle in stable condition.
== END 2025-03-07 14:10 | disposition home or self-care (01) ==
LOC: OR 10:08 → MEDSURG 10:09
PROVIDERS: Family Medicine; PCP Family Medicine; Visit Provider Orthopaedic Surgery Sports Medicine
PROC: (CPT 27130; principal; 2025-03-06 11:30)
DX: M16.11 Unilateral primary osteoarthritis, right hip (principal); G89.18 Other acute postprocedural pain; I95.81 Postprocedural hypotension; I48.91 Unspecified atrial fibrillation; Z79.01 Long term (current) use of anticoagulants; D86.0 Sarcoidosis of lung; I10 Essential (primary) hypertension; Z79.82 Long term (current) use of aspirin; Z86.73 Personal history of transient ischemic attack (TIA), and cerebral infarction without residual deficits; Z86.718 Personal history of other venous thrombosis and embolism; I34.0 Nonrheumatic mitral (valve) insufficiency; J47.0 Bronchiectasis with acute lower respiratory infection; J22 Unspecified acute lower respiratory infection; Z91.81 History of falling
CPT/HCPCS: 27130; 01214; 36415; 64450; 73501; 76942; 80048; 85025; 86850; 86900; 86901; 97110; 97116; 97161; 97165; 97530; 97535; 99100; A9270; C1776; J0690; J1100; J2250; J2371; J2405; J2704; J2795; J3010; J7120

== ENCOUNTER 2025-03-13 12:46 | Outpatient (RCR) | payer MEDICARE, BC, SELFPAY ==
--- NOTE | 2025-03-07 17:21 | PC.SOCIAL ---
Discharge planning: late entry: Prior to discharge met with pt, and two daughters in room regarding discharge plan. Pt is pleased with plan for discharge home today. Dtrs had questions about hiring home care or looking into assisted living placement from home if needed after discharge. Pt is scheduled to move into an assisted living facility in the [facility] in a few weeks. Per pt, this facility has a short term TCU unit. Shared with family the option for them to contact this facility to ask about availability for a short term stay if they decide pt needs more help than can be provided by family at home. Pt has assisted care insurance. ammonia worker shared with family and pt that they could look into whether any services they may decide to hire can count towards the 90 day waiting period for the [facility] home health care insurance to start to cover expenses. Provided pt and family with written information on caregiver services home care, enhanced assisted living and short term rehab facilities. Pt and family are aware pt does not qualify for insurance coverage of a short term senior living stay at this time and plan to take pt to her own home at discharge. PT and family have this social worker delinquency prevention's contact information and are aware of how to contact social worker delinquency prevention if there are additional need for resources after discharge.
--- NOTE | 2025-03-13 14:37 | PT.OPEX ---
PT [place] Outpatient Eval PT [facility] Outpatient Eval Start: 03/13/25 08:58 Freq: Status: Active Protocol: Document 03/13/25 08:58 MLS (Rec: 03/13/25 14:35 MLS [id number]) E-signed By Sultana Mahajan DPT Physical Therapy Outpatient Evaluation Insurance Information Recert Due Date 06/10/25 Insurance Name Medicare B,[employer] Medical Diagnosis z96.641 presence of right artificial hip Treating Diagnosis s/p R AMY on 03/06/[address] [place] Subjective Subjective Patient is a 89 year old female who presents to physical therapy s/p R AMY on 03/06/25. She stayed over one night in the hospital but everything went well. She states that she has had diarrhea since surgery. She is going to call the nurse today regarding this. She did go back to home the next day with family staying with her. She states that she is moving up to [place] on Tuesday and is going to try to get her PT moved up there. She states that she has been sleeping on her back or side. She states that it felt worse to sleep with a pillow between her knees when on her side, so she talked with Juan Antonio and he said it was okay to not use. She states that she returns to see Juan Antonio for follow up on 03/19. She states that she has not used the Oxy for several days. She has been taking Tylenol morning and evening. She states that she only has pain from the sutures currently. She states that she has been doing her exercises three times a day. She is getting up and moving around her home and walked around the [facility] yesterday. Significant past medical history includes A fib, stroke (affected left 4th and 5th fingers) and breast cancer 1987. Patient would like to be pain-free and go about her normal activities through physical therapy sessions. Pain Comments Today: 3/10 on a 0-10 pain scale with 10 = extreme pain At its worst: 5/10 At its best: 0/10 Current Work Status Retired Precautions Weight Bearing Weight Bear as Tolerated Status Therapy Limitations/ Not Limited Systems Review Objective Other/Pertinent GAIT/FUNCTIONAL MOBILITY Objective minimal antalgic gait with FWW today KNEE ROM Grossly tested WNL B HIP ROM Flexion: R 85 Abduction: R 30 IR: R 10 ER: L 15 Left side WFL all movements LLE MMT: Hip flexion: R 3-/5 L 4/5 Hip abduction: R 3-/5 L 4/5 Hip extension: R 3-/5 L 4/5 Knee flexion: R 4-/5 L 4/5 Knee extension: R 4-/5 L 4/5 Access Code: [email or web address] URL: [email or web address] Date: 03/13/2025 Prepared by: Sultana Mahajan Exercises - Supine Ankle Pumps - 5 x daily - 7 x weekly - 1 sets - 20 reps - Supine Quad Set - 3 x daily - 7 x weekly - 1 sets - 20 reps - 5 hold - Supine Gluteal Sets - 3 x daily - 7 x weekly - 1 sets - 20 reps - 5 hold - Supine Heel Slide - 3 x daily - 7 x weekly - 1 sets - 20 reps - 5 hold - Seated Long Arc Quad - 3 x daily - 7 x weekly - 1 sets - 20 reps - Seated March - 1 x daily - 7 x weekly - 3 sets - 10 reps - Sit to Stand - 3 x daily - 7 x weekly - 1 sets - 10- 20 reps - Standing Hip Abduction with Counter Support - 3 x daily - 7 x weekly - 1 sets - 20 reps - Heel Raises with Counter Support - 3 x daily - 7 x weekly - 1 sets - 20 reps - Standing March with Counter Support - 3 x daily - 5- 7 x weekly - 2 sets - 10 reps Functional Test 8/80 Performed & Score A score increase of 6 points shows a significant improvement in lower extremity function. Assessment Assessment/ Pt is a 89 year old female who presents with concerns Impression of s/p R AMY on 03/06/25. Patient also has notable objective findings including limited ROM, tenderness to palpation, and decreased strength which are also likely contributing to the problem. Patient is a good candidate for skilled therapy to target deficits described above. Skilled PT intervention is necessary for use of therapeutic exercise manual therapy, neuromuscular re-education, gait training, and therapeutic activity. Functional impairments include difficulty with: standing, walking, sleeping, exercising, driving and ADLS. See appropriate sections of PT eval for complete list of goals and POC. D/C plan and criteria is for pt to achieve the goals as listed below or until max rehab potential is met. Pt was agreeable with plan of care and goals established. Primary Functional standing Limitations walking driving exercising ADLs sleeping Plan of Care Rehabilitation Good Potential Physical Therapy AMY GOALS Goals Within 10-12 weeks: 1) Pt will ambulate at least 15 minutes with walker, minimal antalgic gait for improved community mobility 2) Pt will be indep with [facility]P for jail management of pain/symptoms 3) Pt will improve hip AROM at least 0-90* for improved sit to stand transfers 4) Patient will ascend/descend at least 10 steps using single rail and reciprocal pattern to improve ease of mobility at home/community 5)Pt will ambulate at least 15 minutes with single point cane, minimal antalgic gait for improved community mobility Coordination/ Referral Source Communication With Treatment Plan/ Gait Training,Manual Therapy,Neuromuscular Re-ed, Direct Interventions Therapeutic Activities,Therapeutic Exercises Patient Will Be Independently Progressing Discharged From Therapy Evaluation Billing Untimed Code 30 Treatment Minutes Complexity Low Certification Information Provider Signature Yes Required Provider Signature POC & Medical Necessity Shows Agreement With Physician NPI Number Write NPI# Here Physician Comment/ : Change Physician Signature Please Sign/Date Here & Date Requested
== END 2025-04-15 16:41 | disposition home or self-care (01) ==
PROVIDERS: PCP Family Medicine; Visit Provider Orthopaedic Surgery Sports Medicine
DX: Z47.1 Aftercare following joint replacement surgery (principal); Z96.641 Presence of right artificial hip joint; Z51.89 Encounter for other specified aftercare
CPT/HCPCS: 97110; 97161